=== PATIENT | male | born 1960 | race Two or more races ===

== ENCOUNTER 2024-08-19 10:41 | Outpatient (CLI) | payer MEDICAID ==
[2024-08-19 11:05] LABS: Urine Bacteria None Seen /hpf (None Seen)
[2024-08-19 11:15] LABS: Basophils # (auto) 0.1 10 ^3/uL (0-0.2); Eosinophils # (auto) 0.2 10 ^3/uL (0-0.8); Hematocrit 27.6 % (41.0-53.0); Hemoglobin 9.5 g/dL (13.5-17.5); Lymphocytes % (auto) 16.8 % (10.0-50.0); Mean Corpuscular Hemoglobin 32.8 pg (28.0-32.0); Mean Corpuscular Hgb Conc. 34.3 g/dL (32.0-36.0); Mean Corpuscular Volume 95.5 fL (80.0-100.0); Monocytes # (auto) 0.6 10 ^3/uL (0-1.3); Monocytes % (auto) 10.2 % (0.0-12.0); Platelet Count (auto) 330 10^3/uL (140-450); Red Blood Cells 2.89 10^6/uL (4.5-5.90); White Blood Cell 5.7 10^3/uL (4.4-10.8)
[2024-08-19 11:23] LABS: Urine Blood Negative /uL (Negative); Urine Clarity Clear (Clear); Urine Color Light-Yellow (Yellow); Urine Protein, UAD Negative (Negative); Urine Specific Gravity 1.009 (1.001-1.035); Urine Squamous Epithelial Cell FEW /hpf (<5); Urine Urobilinogen Normal (Negative); Urine WBC 2 /HPF (0-3); Urine pH 5.5 (5.0-9.0)
[2024-08-19 11:36] LABS: Alanine Aminotransferase 24 U/L (7-40); Albumin 4.6 g/dL (3.2-4.8); Alkaline Phosphatase 90 U/L (46-116); Anion Gap 12 (5-15); Aspartate Aminotransferase 13 U/L (13-40); BUN/Creatinine Ratio 8.8 (10.0-20.0); Calcium 9.5 mg/dL (8.7-10.4); Glucose 89 mg/dL (74-106); Magnesium 1.7 mg/dL (1.6-2.6); Potassium 4.8 mmol/L (3.5-5.1); Prostate Specific Antigen 15.66 ng/mL (0.0-4.0); Sodium 140 mmol/L (136-145); Total Protein 7.7 g/dL (5.7-8.2); Triglycerides 92 mg/dL (< 150)
[2024-08-19 11:41] LABS: Bilirubin, Total 0.2 mg/dL (0.2-1.0); Blood Urea Nitrogen 67 mg/dL (9-23); Carbon Dioxide 18 mmol/L (20-31); Chloride 110 mmol/L (98-107); Cholesterol 207 mg/dL (< 200); HDL Cholesterol 35 mg/dL (40-59); LDL Cholesterol 153 mg/dL (< 100)
== END 2024-08-19 17:00 | disposition home or self-care (01) ==
LOC: LAB 10:41
PROVIDERS: ATTEND Internal Medicine
DX: Z12.5 Encounter for screening for malignant neoplasm of prostate (principal); Z12.11 Encounter for screening for malignant neoplasm of colon; Z00.00 Encounter for general adult medical examination without abnormal findings
CPT/HCPCS: 36415; 80053; 80061; 81001; 82306; 82607; 83036; 83735; 84153; 84443; 85025

== ENCOUNTER 2024-08-26 13:45 | Inpatient (IN) | payer MEDICAID ==
[~2024-08-26] VITALS: Ht 180.3 cm; Wt 71.4 kg
[2024-08-26 14:22] VITALS: PULSE 67; RESP 18; O2SAT 100
--- NOTE | 2024-08-26 14:59 | ED.PDOC ---
General HPI Comments HPI: Poor Historian. 64-year-old male sent by his PCP's office for evaluation of recent diagnosis of acute renal failure and enlarged prostate. I discussed the case with the PCP on the phone. He said the patient had a CT scan approximately a week ago that shows hydronephrosis and hydroureter nephrosis bilaterally with an enlarged prostate likely causing bladder outlet obstruction. Patient denies any pain or symptoms. PCP recommends admitting the patient to the hospital for further evaluation and treatment Dr. Braun Past Medical History: Denies Past Surgical History: Denies REVIEW OF SYSTEMS: CONSTITUTIONAL: Denies acute: fever, diaphoresis, chills, generalized weakness. HEAD: Denies acute: headache, photophobia Eyes: Denies acute: Double vision, vision loss, eye pain, eye discharge. EARS: Denies acute: tinnitus, hearing loss, ear discharge, ear pain, THROAT: Denies acute: sore throat, swelling, difficulty swallowing , pain with swal lowing, change in voice. NECK: Denies acute: neck pain, neck swelling, stiff neck. HEART: Denies acute : chest pain, palpitations, LUNGS: Denies acute: SOB, wheezing, cough, hemoptysis ABDOMEN: Denies acute: abdominal pain, Nausea, Vomiting, diarrhea, melena , hematemesis, hematochezia SKIN: Denies acute: rash, redness, lesions, itchiness. EXTREMITIES: Denies acute: calf pain, numbness, tingling, weakness, denies pain in extremity. Denies acute: Low back pain. Neuro: Denies acute: focal neurological deficit, motor or sensory focal neurological deficit, tremors, seizure like activity, confusion, dizziness, change in mental status, loss of bowel or bladder function, cauda equina like symptoms. : Denies acute: dysuria, hematuria, flank pain, PSYCH: Denies acute: hallucination, suicidal ideation, homicidal ideation. PHYSICAL EXAM: General: ----no----acute distress, awake and alert. Head: normocephalic, atraumatic. Neck: supple, trachea is midline, no swelling. Throat: Normal phonation. Eyes:, no erythema, no purulent discharge, no proptosis, no icterus. Heart: regular rate, regular rhythm, no significant murmur appreciated. Lungs: no apparent respiratory distress, Able to speak in full sentences. No wheezing, no rhonchi, no crackles. No stridors Clear to auscultation bilaterally. Abdomen: non tender to palpation, non distended, soft, no guarding, no rebound, + bowel sounds. Neuro: Awake, Alert, oriented to name, self, situation, follows commands GCS=15. Speech is normal. Skin: no petechia, no purpura, no cyanosis, non-pale, not jaundice. Lower extremities: --no - Pitting edema no deformity, no focal swelling, no calf TTP. Makes eye contact. moves all four extremities. Face: no apparent facial droop. Ambulating in the ED independently. ED COURSE: Chief Complaint: Abnormal LAB's Time Seen by MD: 14:52 Primary Care Provider: TRACEE Reviewed notes: Medications, Allergies Allergies: Coded Allergies: Codeine (Verified Allergy, Unknown, 08/26/24) JUST DOESNT CARE FOR MEDICATION Home Meds Reported Medications Famotidine (Famotidine) 20 Mg Tab, 1 TAB PO BID 08/26/24 Information Source: Patient Mode of Arrival: Ambulatory Past Medical History PAST MEDICAL HISTORY: Denies Surgical History: Denies all surgeries Family History Family History: Reviewed,noncontributory to illness Social History Smoker: Non-Smoker Alcohol: Denies ETOH Use Drugs: Denies Drug Use Lives In: Home Was a procedure done? Was a procedure done?: No Differential Diagnosis Kidney stone (Female): N/A Urinary Problem (Male): Bladder Outlet, Bladder Obstruction, Epididymitis, Prostatitis, Plelonephritis, Post op Complications, Renal Failure, Urethritis, Urinary Retention, Urolithiasis, UTI X-Ray, Labs, Meds, VS Vital Signs Date Time Temp Pulse Resp B/P (MAP) Pulse Ox O2 Delivery O2 Flow Rate FiO2 08/26/24 19:23 65 12 115/79 (91) 99 08/26/24 19:20 62 10 99 Room Air* 0 21 08/26/24 16:43 97.5 59 16 125/92 (103) 99 97.5 08/26/24 16:43 59 16 97 Room Air 08/26/24 14:22 67 18 100 Room Air* 0 21 08/26/24 14:18 97.9 67 18 148/85 (106) 100 97.9 Lab Test 08/26/24 14:58 08/26/24 14:55 Range/Units White Blood Count 5.0 4.4-10.8 10^3/uL Red Blood Count 2.73 L 4.5-5.90 10^6/uL Hemoglobin 9.0 L 13.5-17.5 g/dL Hematocrit 25.7 L 41.0-53.0 % Mean Corpuscular Volume 94.3 80.0-100.0 fL Mean Corpuscular Hemoglobin 32.9 H 28.0-32.0 pg Mean Corpuscular Hemoglobin Concent 34.8 32.0-36.0 g/dL Red Cell Distribution Width 13.3 11.8-14.3 % Platelet Count 311 140-450 10^3/uL Mean Platelet Volume 7.6 6.9-10.8 fL Neutrophils (%) (Auto) 66.3 37.0-80.0 % Lymphocytes (%) (Auto) 20.0 10.0-50.0 % Monocytes (%) (Auto) 10.5 0.0-12.0 % Eosinophils (%) (Auto) 2.1 0.0-7.0 % Basophils (%) (Auto) 1.1 0.0-2.0 % Neutrophils # (Auto) 3.3 1.6-8.6 10 ^3/uL Lymphocytes # (Auto) 1.0 0.4-5.4 10 ^3/uL Monocytes # (Auto) 0.5 0-1.3 10 ^3/uL Eosinophils # (Auto) 0.1 0-0.8 10 ^3/uL Basophils # (Auto) 0.1 0-0.2 10 ^3/uL Nucleated Red Blood Cells 0.0 % Sodium Level 143 136-145 mmol/L Potassium Level 4.9 3.5-5.1 mmol/L Chloride Level 111 H 98-107 mmol/L Carbon Dioxide Level 19 L 20-31 mmol/L Anion Gap 13 5-15 Blood Urea Nitrogen 61 H 9-23 mg/dL Creatinine 7.95 H 0.700-1.30 mg/dL Glomerular Filtration Rate Calc 7 >90 mL/min BUN/Creatinine Ratio 7.7 L 10.0-20.0 Serum Glucose 90 74-106 mg/dL Lactic Acid Level 0.9 0.4-2.0 mmol/L Calcium Level 9.6 8.7-10.4 mg/dL Total Bilirubin 0.2 0.2-1.0 mg/dL Aspartate Amino Transferase (AST) 19 13-40 U/L Alanine Aminotransferase (ALT) 25 7-40 U/L Alkaline Phosphatase 90 46-116 U/L Total Protein 7.5 5.7-8.2 g/dL Albumin 4.7 3.2-4.8 g/dL Free Prostate Specific Antigen Pending Percent Free Prostate Specific Ag Pending Prostate Specific Antigen Total Pending Urine Color Light-yellow Yellow Urine Clarity Clear Clear Urine pH 5.5 5.0-9.0 Urine Specific [place] 1.009 1.001-1.035 Urine Protein Negative Negative Urine Ketones Negative Negative Urine Blood Negative Negative /uL Urine Nitrite Negative Negative Urine Bilirubin Negative Negative Urine Urobilinogen Normal Negative mg/dL Urine Leukocyte Esterase Negative Negative /uL Urine RBC None seen 0 - 3 /hpf Urine Microscopic WBC 2 0-3 /HPF Urine Squamous Epithelial Cells None seen <5 /hpf Urine Bacteria None seen None Seen /hpf Urine Glucose Normal Normal mg/dL Current Medications Medications (Trade) Dose Ordered Sig/Kandi Route Start Time Stop Time Status Last Admin Lidocaine HCl (Glydo) 11 ml ONCE ONCE UR 08/26/24 18:45 08/26/24 18:46 DC 08/26/24 18:51 PATIENT: KIT BARRAZACCT: [id number]: [id number] : 1960 LOC: ER ROOM / BED: / AGE / SEX: 64 / M ADM STATUS: REG ER SERVICE 1704 ORDERING PHYSICIAN: JACKELINE LOYOLA MD PROCEDURE(s): KIDUS - KIDNEY REASON: REGINALDO ORDER NUMBER(s): [id number], ACCESSION NUMBER(s): [id number] INDICATION: REGINALDO TECHNIQUE: Multiple real-time sonographic images of the kidneys and bladder were obtained. COMPARISON: None FINDINGS: The right kidney measures 8.83 cm in length, which is normal in size. Decreased cortical thickness There is increased echogenicity of the right kidney. Right-sided hydronephrosis The left kidney measures 1.11 cm in length, which is normal in size. Decreased cortical thickness. There is increased echogenicity of the left kidney. Left- sided hydronephrosis No large intraluminal masses are seen in the bladder. Prior to voiding the bladder volume measures volume 1907 mL. Following voiding, the bladder volume residual measures 1420 mL. IMPRESSION: 1. Right kidney measures 8.83 cm. Left kidney measures 11.11 cm. 2. Bilateral hydronephrosis 3. Decreased cortical thickness bilaterally and increased echogenicity suggesting chronic renal disease. 4. 1420 mL urinary residual in the bladder. Bladder wall measures 14.8 mm findings most likely represent chronic bladder outlet obstruction. ATED BY: JALIL LOPEZ Jr., DO DICTATED DATE/TIME: 08/26/241841 SIGNED BY: JALIL LOPEZ Jr., SIGNED DATE/TIME: 08/26/241841 Time of 1ST Reevaluation: 15:22 Reevaluation 1ST: Unchanged Patient Education/Counseling: Diagnosis, Treatment Family Education/Counseling: No Family Present Comments Patient presented with the above HPI.--history of acute renal failure----workup was initiated. patient was found with the above mentioned diagnosis. Case discussed with the patient's PCP who recommends admission to the hospital for further evaluation the following medications were ordered: please refer to order lists of meds and tests obtained by myself Dr. Garcia. Patient ED course and VS have been stabilized. Patient has been reassessed in the ED and remained in a stable condition. Pertinent incidental findings were discussed with the patient and/or family. Patient/family voices understanding and is agreeable with plan. Patient has been observed in the ED adequate length of time to insure improvement/stability. Escalation of care considered: Consideration of escalation to observation or admission Patient denies any symptoms. A consult for Nephrology was placed. Garcia catheter was ordered. Patient was ADMITTED to the medicine team for further evaluation and treatment of their presentation. All the reports of any imaging studies that were ordered by myself were reviewed by myself. Departure 1 Departure Time of Disposition: 15:06 Impression: Primary Impression: Acute renal failure Additional Impressions: Enlarged prostate Bladder outlet obstruction Hydroureteronephrosis Disposition: ADMITTED INPATIENT Admit to: Tele Condition: Guarded Discharged With: Self Critical Care Note Critical Care Time?: Yes (55 min-critical care time only) I personally scribed for FRANCISCO GARCIA DO ([email or web address]) on 08/26/24 at 14:59. Electronically submitted by Mik Fry ([email or web address]). I personally scribed for FRANCISCO GARCIA DO ([email or web address]) on 08/26/24 at 20:03. Electronically submitted by Mik Fry ([email or web address]). FRANCISCO GARCIA DO Aug 26, 2024 14:59
[2024-08-26 15:18] LABS: Basophils # (auto) 0.1 10 ^3/uL (0-0.2); Basophils % (auto) 1.1 % (0.0-2.0); Eosinophils # (auto) 0.1 10 ^3/uL (0-0.8); Eosinophils % (auto) 2.1 % (0.0-7.0); Hematocrit 25.7 % (41.0-53.0); Mean Corpuscular Hemoglobin 32.9 pg (28.0-32.0); Mean Corpuscular Hgb Conc. 34.8 g/dL (32.0-36.0); Mean Corpuscular Volume 94.3 fL (80.0-100.0); Monocytes # (auto) 0.5 10 ^3/uL (0-1.3); Monocytes % (auto) 10.5 % (0.0-12.0); Neutrophils # (auto) 3.3 10 ^3/uL (1.6-8.6); Neutrophils % (auto) 66.3 % (37.0-80.0); Platelet Count (auto) 311 10^3/uL (140-450); Red Blood Cells 2.73 10^6/uL (4.5-5.90); Red Cell Distribution Width 13.3 % (11.8-14.3)
[2024-08-26 15:29] LABS: Urine Bacteria None Seen /hpf (None Seen)
[2024-08-26 15:34] LABS: Alanine Aminotransferase 25 U/L (7-40); Albumin 4.7 g/dL (3.2-4.8); Alkaline Phosphatase 90 U/L (46-116); Anion Gap 13 (5-15); Aspartate Aminotransferase 19 U/L (13-40); BUN/Creatinine Ratio 7.7 (10.0-20.0); Calcium 9.6 mg/dL (8.7-10.4); Glucose 90 mg/dL (74-106); Potassium 4.9 mmol/L (3.5-5.1); Sodium 143 mmol/L (136-145); Total Protein 7.5 g/dL (5.7-8.2)
[2024-08-26 15:39] LABS: Urine Blood Negative /uL (Negative); Urine Clarity Clear (Clear); Urine Color Light-Yellow (Yellow); Urine Protein, UAD Negative (Negative); Urine Specific Gravity 1.009 (1.001-1.035); Urine Squamous Epithelial Cell None Seen /hpf (<5); Urine Urobilinogen Normal (Negative); Urine WBC 2 /HPF (0-3); Urine pH 5.5 (5.0-9.0)
[2024-08-26 15:39] LABS: Bilirubin, Total 0.2 mg/dL (0.2-1.0); Blood Urea Nitrogen 61 mg/dL (9-23); Carbon Dioxide 19 mmol/L (20-31); Chloride 111 mmol/L (98-107)
[2024-08-26] MEDS ORDERED: LIDOCAINE 2% TOPICAL JELLY 5 ML URJT TOP ONE (18:45)
--- NOTE | 2024-08-26 18:45 | DVH ---
INDICATION: REGINALDO TECHNIQUE: Multiple real-time sonographic images of the kidneys and bladder were obtained. COMPARISON: None FINDINGS: The right kidney measures 8.83 cm in length, which is normal in size. Decreased cortical th ickness There is increased echogenicity of the right kidney. Right-sided hydronephrosis The left kidney measures 1.11 cm in length, which is normal in size. Decreased cortical thickness. Th ere is increased echogenicity of the left kidney. Left-sided hydronephrosis No large intraluminal masses are seen in the bladder. Prior to voiding the bladder volume measures vo lume 1907 mL. Following voiding, the bladder volume residual measures 1420 mL. IMPRESSION: 1. Right kidney measures 8.83 cm. Left kidney measures 11.11 cm. 2. Bilateral hydronephrosis 3. Decreased cortical thickness bilaterally and increased echogenicity suggesting chronic renal dise ase. 4. 1420 mL urinary residual in the bladder. Bladder wall measures 14.8 mm findings most likely repre sent chronic bladder outlet obstruction.
[2024-08-26] MEDS: LIDOCAINE 2% JELLY 11ml (GLYDO) ONE (18:51)
[2024-08-26] MEDS: LIDOCAINE 2% JELLY 11ml (GLYDO) UR ONE (18:51)
[2024-08-26 19:20] VITALS: PULSE 62; RESP 10; O2SAT 99
[2024-08-26] MEDS ORDERED: ACETAMINOPHEN 325 MG TAB PO PRN (19:30)
[2024-08-26] MEDS: TAMSULOSIN HYDROCHLORIDE 0.4 MG CAP PO ONE (19:49)
[2024-08-26] MEDS: SOD CHL 0.45% 1,000 ML IV SCH (20:30)
--- NOTE | 2024-08-26 20:44 | DVHINCON2 ---
Date of service: Aug 26, [address] Vega Reason for Consultation REGINALDO History of Present Illness 64 year old male with no previous medical follow-up for several years presented to a primary medical doctor to establish care approximately one month ago. Routine comprehensive screening tests were done and patient was complaining of an abdominal hernia at the time. Upon follow-up from lab results patient was noted to have an abnormal creatinine level and therefore was sent to the hospital for evaluation. In the ER patient had a bladder scan which showed bilateral hydronephrosis with a residual bladder retention approximately 1.4 L. Garcia catheter was placed. Nephrology consulted for acute kidney injury. Past Medical History No previous medical history Allergies: Coded Allergies: Codeine (Verified Allergy, Unknown, 08/26/24) JUST DOESNT CARE FOR MEDICATION Home Meds Reported Medications Famotidine (Famotidine) 20 Mg Tab, 1 TAB PO BID 08/26/24 Current Medications Current Medications Medications (Trade) Dose Ordered Sig/Kandi Route PRN Reason Start Time Stop Time Status Last Admin Tamsulosin HCl (Flomax) 0.4 mg QPM PO 08/27/24 18:00 Acetaminophen/ Hydrocodone Bitart ([place] 5/325MG Tab) 1 tab Q4HP PRN PO MODERATE PAIN (4-6 PAIN SCALE) 08/26/24 19:30 Ondansetron HCl (Zofran) 4 mg Q4HP PRN IV NAUSEA / VOMITING 08/26/24 19:30 Acetaminophen (Tylenol Tablet) 650 mg Q6HP PRN PO PAIN SCALE 1-3 OR TEMP>100.4 08/26/24 19:30 Sodium Chloride 1,000 ml @ 100 mls/hr Q10H IV 08/26/24 20:30 08/27/24 07:19 DC Sodium Bicarbonate 75 ml/ Sodium Chloride 1,075 ml @ 100 mls/hr [id number] IV 08/27/24 07:30 H&P Exam Vital Signs/I&O Vital Sign Date Time Temp Pulse Resp B/P (MAP) Pulse Ox O2 Delivery O2 Flow Rate FiO2 08/27/24 13:00 98.0 66 17 107/62 (77) 99 98.0 08/26/24 23:17 Room Air* 0 21 Intake and Output 08/26/24 08/27/24 18:59 06:59 Intake Total 1600 ml Output Total 1850 ml Balance -250 ml Intake Oral 1600 ml Output Urine Total 1850 ml Physical Exam Elderly male Nonacute distress Alert and oriented Regular rate and rhythm Labs/Diagnostic Data Labs/Diagnostic Data Laboratory Tests Test 08/27/24 05:45 08/26/24 14:58 08/26/24 14:55 Range/Units White Blood Count 9.3 # 5.0 4.4-10.8 10^3/uL Red Blood Count 2.87 L 2.73 L 4.5-5.90 10^6/uL Hemoglobin 9.4 L 9.0 L 13.5-17.5 g/dL Hematocrit 27.1 L 25.7 L 41.0-53.0 % Mean Corpuscular Volume 94.3 94.3 80.0-100.0 fL Mean Corpuscular Hemoglobin 32.7 H 32.9 H 28.0-32.0 pg Mean Corpuscular Hemoglobin Concent 34.7 34.8 32.0-36.0 g/dL Red Cell Distribution Width 13.2 13.3 11.8-14.3 % Platelet Count 301 311 140-450 10^3/uL Mean Platelet Volume 7.6 7.6 6.9-10.8 fL Neutrophils (%) (Auto) 88.9 H 66.3 37.0-80.0 % Lymphocytes (%) (Auto) 5.6 L 20.0 10.0-50.0 % Monocytes (%) (Auto) 4.9 10.5 0.0-12.0 % Eosinophils (%) (Auto) 0.3 2.1 0.0-7.0 % Basophils (%) (Auto) 0.3 1.1 0.0-2.0 % Neutrophils # (Auto) 8.3 3.3 1.6-8.6 10 ^3/uL Lymphocytes # (Auto) 0.5 1.0 0.4-5.4 10 ^3/uL Monocytes # (Auto) 0.5 0.5 0-1.3 10 ^3/uL Eosinophils # (Auto) 0 0.1 0-0.8 10 ^3/uL Basophils # (Auto) 0 0.1 0-0.2 10 ^3/uL Nucleated Red Blood Cells 0.0 0.0 % Sodium Level 139 143 136-145 mmol/L Potassium Level 5.1 4.9 3.5-5.1 mmol/L Chloride Level 108 H 111 H 98-107 mmol/L Carbon Dioxide Level 19 L 19 L 20-31 mmol/L Anion Gap 12 13 5-15 Blood Urea Nitrogen 61 H 61 H 9-23 mg/dL Creatinine 7.80 H 7.95 H 0.700-1.30 mg/dL Glomerular Filtration Rate Calc 7 7 >90 mL/min BUN/Creatinine Ratio 7.8 L 7.7 L 10.0-20.0 Serum Glucose 123 H 90 74-106 mg/dL Calcium Level 9.0 9.6 8.7-10.4 mg/dL Phosphorus Level 4.8 2.4-5.1 mg/dL Iron Level 48 L 65-175 ug/dL Total Iron Binding Capacity 235 L 250-425 ug/dL Percent Iron Saturation 20.4 20-55 % Ferritin 383.9 H 22-322 ng/mL Vitamin D 25-Hydroxy 38.4 30.0-100 ng/mL Lactic Acid Level 0.9 0.4-2.0 mmol/L Total Bilirubin 0.2 0.2-1.0 mg/dL Aspartate Amino Transferase (AST) 19 13-40 U/L Alanine Aminotransferase (ALT) 25 7-40 U/L Alkaline Phosphatase 90 46-116 U/L Total Protein 7.5 5.7-8.2 g/dL Albumin 4.7 3.2-4.8 g/dL Urine Color Light-yellow Yellow Urine Clarity Clear Clear Urine pH 5.5 5.0-9.0 Urine Specific [place] 1.009 1.001-1.035 Urine Protein Negative Negative Urine Ketones Negative Negative Urine Blood Negative Negative /uL Urine Nitrite Negative Negative Urine Bilirubin Negative Negative Urine Urobilinogen Normal Negative mg/dL Urine Leukocyte Esterase Negative Negative /uL Urine RBC None seen 0 - 3 /hpf Urine Microscopic WBC 2 0-3 /HPF Urine Squamous Epithelial Cells None seen <5 /hpf Urine Bacteria None seen None Seen /hpf Urine Glucose Normal Normal mg/dL Assessment 64-year-old male presented to the hospital at the request of primary medical physician due to probable urinary retention. Patient is found to have bilateral hydronephrosis in the setting of obstructive uropathy. Acute kidney injury secondary to bladder outlet obstruction due to enlarged prostate. Chronic kidney disease unspecified baseline unknown Anemia unspecified Metabolic acidosis Agree with Garcia catheter placement Strict Is&Os Urology Avoid hypotension IV fluid hydration Obtain medication was reconciliation and collateral information from primary medical team. No emergent indication for hemodialysis at this time if patient continues to have adequate urinary output Obtain anemia panel Plan discussed with: Patient JACKELINE LOYOLA MD Aug 26, 2024 20:44
--- NOTE | 2024-08-26 21:14 | DVHHP2 ---
History of Present Illness Reason for Visit: Abnormal labs History of Present Illness 64-year-old male presents for evaluation of abnormal blood work. Patient was seen by his primary care provider and was advised to present to the emergency department due to acute renal failure noted from previous blood work. Patient reports urinary frequency and difficulty urinating. Denies any medical problems. Past Medical History Denies Past Surgical History Denies Family History Noncontributory Smoke: No ALCOHOL: none Drugs: None Lives: with Family Review of Systems Review of Systems Review of systems are currently negative otherwise addressed in HPI. Allergies: Coded Allergies: Codeine (Verified Allergy, Unknown, 08/26/24) JUST DOESNT CARE FOR MEDICATION Medications Current Medications Medications Dose Ordered Sig/Kandi Route Start Time Stop Time Status Last Admin Dose Admin Tamsulosin HCl 0.4 mg QPM PO 08/27/24 18:00 Acetaminophen/ Hydrocodone Bitart 1 tab Q4HP PRN PO 08/26/24 19:30 Ondansetron HCl 4 mg Q4HP PRN IV 08/26/24 19:30 Acetaminophen 650 mg Q6HP PRN PO 08/26/24 19:30 Sodium Chloride 1,000 ml @ 100 mls/hr Q10H IV 08/26/24 20:30 Exam Vital Signs Vital Signs Date Time Temp Pulse Resp B/P (MAP) Pulse Ox O2 Delivery O2 Flow Rate FiO2 08/26/24 19:23 65 12 115/79 (91) 99 08/26/24 19:20 Room Air* 0 21 08/26/24 16:43 97.5 97.5 Exam Gen: 64-year-old male in mild distress Skin: Warm, dry, normal color and texture, no rash. HEENT: Normocephalic atraumatic, mucous membranes moist and pink. Neck: Cervical and supraclavicular nodes normal without enlargement, trachea is midline, thyroid gland is normal without masses. Pulmonary: Clear to auscultation and percussion bilaterally. Cardiac: Regular rate and rhythm. No murmur Abdomen: Soft, nontender, nondistended, bowel sounds present all 4 quadrants, no guarding, no rigidity, no organomegaly. Extremities: No cyanosis, clubbing, no edema Neuro: Cranial nerves II through XII grossly intact, normal affect and speech, no focal motor deficits. Labs/Xrays ORDERING PHYSICIAN: JACKELINE LOYOLA MD PROCEDURE(s): KIDUS - KIDNEY REASON: REGINALDO ORDER NUMBER(s): [id number], ACCESSION NUMBER(s): [id number] INDICATION: REGINALDO TECHNIQUE: Multiple real-time sonographic images of the kidneys and bladder were obtained. COMPARISON: None FINDINGS: The right kidney measures 8.83 cm in length, which is normal in size. Decreased cortical thickness There is increased echogenicity of the right kidney. Right-sided hydronephrosis The left kidney measures 1.11 cm in length, which is normal in size. Decreased cortical thickness. There is increased echogenicity of the left kidney. Left- sided hydronephrosis No large intraluminal masses are seen in the bladder. Prior to voiding the bladder volume measures volume 1907 mL. Following voiding, the bladder volume residual measures 1420 mL. IMPRESSION: 1. Right kidney measures 8.83 cm. Left kidney measures 11.11 cm. 2. Bilateral hydronephrosis 3. Decreased cortical thickness bilaterally and increased echogenicity suggesting chronic renal disease. 4. 1420 mL urinary residual in the bladder. Bladder wall measures 14.8 mm findings most likely represent chronic bladder outlet obstruction. 18 Labs Test 08/26/24 14:58 08/26/24 14:55 Range/Units White Blood Count 5.0 4.4-10.8 10^3/uL Red Blood Count 2.73 L 4.5-5.90 10^6/uL Hemoglobin 9.0 L 13.5-17.5 g/dL Hematocrit 25.7 L 41.0-53.0 % Mean Corpuscular Volume 94.3 80.0-100.0 fL Mean Corpuscular Hemoglobin 32.9 H 28.0-32.0 pg Mean Corpuscular Hemoglobin Concent 34.8 32.0-36.0 g/dL Red Cell Distribution Width 13.3 11.8-14.3 % Platelet Count 311 140-450 10^3/uL Mean Platelet Volume 7.6 6.9-10.8 fL Neutrophils (%) (Auto) 66.3 37.0-80.0 % Lymphocytes (%) (Auto) 20.0 10.0-50.0 % Monocytes (%) (Auto) 10.5 0.0-12.0 % Eosinophils (%) (Auto) 2.1 0.0-7.0 % Basophils (%) (Auto) 1.1 0.0-2.0 % Neutrophils # (Auto) 3.3 1.6-8.6 10 ^3/uL Lymphocytes # (Auto) 1.0 0.4-5.4 10 ^3/uL Monocytes # (Auto) 0.5 0-1.3 10 ^3/uL Eosinophils # (Auto) 0.1 0-0.8 10 ^3/uL Basophils # (Auto) 0.1 0-0.2 10 ^3/uL Nucleated Red Blood Cells 0.0 % Sodium Level 143 136-145 mmol/L Potassium Level 4.9 3.5-5.1 mmol/L Chloride Level 111 H 98-107 mmol/L Carbon Dioxide Level 19 L 20-31 mmol/L Anion Gap 13 5-15 Blood Urea Nitrogen 61 H 9-23 mg/dL Creatinine 7.95 H 0.700-1.30 mg/dL Glomerular Filtration Rate Calc 7 >90 mL/min BUN/Creatinine Ratio 7.7 L 10.0-20.0 Serum Glucose 90 74-106 mg/dL Lactic Acid Level 0.9 0.4-2.0 mmol/L Calcium Level 9.6 8.7-10.4 mg/dL Total Bilirubin 0.2 0.2-1.0 mg/dL Aspartate Amino Transferase (AST) 19 13-40 U/L Alanine Aminotransferase (ALT) 25 7-40 U/L Alkaline Phosphatase 90 46-116 U/L Total Protein 7.5 5.7-8.2 g/dL Albumin 4.7 3.2-4.8 g/dL Urine Color Light-yellow Yellow Urine Clarity Clear Clear Urine pH 5.5 5.0-9.0 Urine Specific [employer] 1.009 1.001-1.035 Urine Protein Negative Negative Urine Ketones Negative Negative Urine Blood Negative Negative /uL Urine Nitrite Negative Negative Urine Bilirubin Negative Negative Urine Urobilinogen Normal Negative mg/dL Urine Leukocyte Esterase Negative Negative /uL Urine RBC None seen 0 - 3 /hpf Urine Microscopic WBC 2 0-3 /HPF Urine Squamous Epithelial Cells None seen <5 /hpf Urine Bacteria None seen None Seen /hpf Urine Glucose Normal Normal mg/dL Assessment/Plan Assessment/Plan Assessment Acute renal failure Enlarged prostate Bladder outlet obstruction, secondary to the above Hydroureter nephrosis Acute urinary retention Plan Admit the patient to [facility] to the hospitalist Urology consultation Nephrology consult Garcia catheter Continue treatment per orders. Plan discussed with: Patient My Orders Orders - MICK CHAPPELL Procedure Category Date Status Time Tamsulosin PHA 08/27/24 In Process Hydrochloride (Flomax) 18:00 * Urology Consult CONS 08/26/24 Transmitted 19:27 Basic Metabolic Panel LAB 08/27/24 Verified 04:00 Psa Total+% Free LAB 08/26/24 In Process 19:27 Admit ADMIT 08/26/24 Transmitted 19:27 Renal DIET 08/27/24 Transmitted Standard(2gna,3gk,Lopho) Breakfast Hydrocodone-Acet PHA 08/26/24 In Process 5/325mg Tab ([place] 19:30 Ondansetron Hcl PHA 08/26/24 In Process (Zofran) 19:30 Complete Blood Count LAB 08/27/24 Verified 04:00 Condition: Stable SEMAJ 08/26/24 In Process 19:27 Acetaminophen Tablet PHA 08/26/24 In Process (Tylenol Tablet) 19:30 Bedrest With Bathroom SEMAJ 08/26/24 In Process Privileg 19:27 Date of Service: Aug 26, 2024 Billing Provider: MICK CHAPPELL Common Visit Codes: [id number] INP/OBS CARE (HIGH) MICK CHAPPELL Aug 26, 2024 21:14
[2024-08-26 22:36] VITALS: BP 136/73; PULSE 72; RESP 19; TEMP 97.9; O2SAT 99
[2024-08-26 23:17] VITALS: PULSE 79; RESP 18; O2SAT 99
[2024-08-26] MEDS ORDERED: FAMO-12 PO ×2 (23:50)
[2024-08-27] VITALS (8 sets, daily range): BP systolic 101–135; BP diastolic 61–73; PULSE 57–80; RESP 17–19; TEMP 97.6–98; O2SAT 97–100
[2024-08-27 06:14] LABS: Basophils # (auto) 0 10 ^3/uL (0-0.2); Basophils % (auto) 0.3 % (0.0-2.0); Eosinophils # (auto) 0 10 ^3/uL (0-0.8); Eosinophils % (auto) 0.3 % (0.0-7.0); Hematocrit 27.1 % (41.0-53.0); Hemoglobin 9.4 g/dL (13.5-17.5); Lymphocytes # (auto) 0.5 10 ^3/uL (0.4-5.4); Lymphocytes % (auto) 5.6 % (10.0-50.0); Mean Corpuscular Hemoglobin 32.7 pg (28.0-32.0); Mean Corpuscular Hgb Conc. 34.7 g/dL (32.0-36.0); Mean Corpuscular Volume 94.3 fL (80.0-100.0); Monocytes # (auto) 0.5 10 ^3/uL (0-1.3); Monocytes % (auto) 4.9 % (0.0-12.0); Neutrophils # (auto) 8.3 10 ^3/uL (1.6-8.6); Neutrophils % (auto) 88.9 % (37.0-80.0); Platelet Count (auto) 301 10^3/uL (140-450); Red Blood Cells 2.87 10^6/uL (4.5-5.90); Red Cell Distribution Width 13.2 % (11.8-14.3); White Blood Cell 9.3 10^3/uL (4.4-10.8)
[2024-08-27 06:24] LABS: Sodium 139 mmol/L (136-145)
[2024-08-27 06:25] LABS: Anion Gap 12 (5-15)
[2024-08-27 06:28] LABS: Carbon Dioxide 19 mmol/L (20-31); Chloride 108 mmol/L (98-107); Potassium 5.1 mmol/L (3.5-5.1)
[2024-08-27 06:30] LABS: BUN/Creatinine Ratio 7.8 (10.0-20.0)
[2024-08-27 06:31] LABS: Blood Urea Nitrogen 61 mg/dL (9-23); Glucose 123 mg/dL (74-106)
[2024-08-27 06:32] LABS: % Iron Saturation 20.4 % (20-55); Phosphorus 4.8 mg/dL (2.4-5.1)
[2024-08-27] MEDS: SODIUM BICARB 50mEq/50ml Vial 75 ML in SOD CHL 0.45% 1,000 ML IV SCH (07:30)
--- NOTE | 2024-08-27 13:23 | DVHPN2 ---
Subjective Patient denies any symptoms Reviewed: Care Plan, H&P, Labs, Medications Changes from previous H/P or p: No Changes General: Per HPI Objective Vitals Vital Signs Date Time Temp Pulse Resp B/P (MAP) Pulse Ox O2 Delivery O2 Flow Rate FiO2 08/27/24 09:00 97.7 72 17 101/61 (74) 100 97.7 08/26/24 23:17 Room Air* 0 21 Intake/Output Intake and Output 08/27/24 07:00 Intake Total 1600 ml Output Total 1850 ml Balance -250 ml Intake Oral 1600 ml Output Urine Total 1850 ml General Appearance: Alert, Oriented X3, Cooperative HEENT: Atraumatic, PERRLA Lungs: Clear to auscultation, Normal air movement Cardiovascular: Normal S1, Normal S2 Genitourinary: No Apparent Abnormalities (Garcia catheter), Hematuria Musculoskeletal: Normal sensory function, Normal motor function Skin: Dry, Intact Psych/Mental Status: Mental status NL, Mood NL Medications Current Medications Medications Dose Ordered Sig/Kandi Route Start Time Stop Time Status Last Admin Dose Admin Tamsulosin HCl 0.4 mg QPM PO 08/27/24 18:00 Acetaminophen/ Hydrocodone Bitart 1 tab Q4HP PRN PO 08/26/24 19:30 Ondansetron HCl 4 mg Q4HP PRN IV 08/26/24 19:30 Acetaminophen 650 mg Q6HP PRN PO 08/26/24 19:30 Sodium Bicarbonate 75 ml/ Sodium Chloride 1,075 ml @ 100 mls/hr [id number] IV 08/27/24 07:30 Laboratory Results Laboratory Tests 08/27/24 05:45 Chemistry Test 08/26/24 14:58 08/27/24 05:45 Albumin 4.7 g/dL (3.2-4.8) Calcium Level 9.6 mg/dL (8.7-10.4) 9.0 mg/dL (8.7-10.4) Total Protein 7.5 g/dL (5.7-8.2) Phosphorus Level 4.8 mg/dL (2.4-5.1) LFT Test 08/26/24 14:58 Alanine Aminotransferase (ALT) 25 U/L (7-40) Alkaline Phosphatase 90 U/L (46-116) Aspartate Amino Transferase (AST) 19 U/L (13-40) Total Bilirubin 0.2 mg/dL (0.2-1.0) Urinalysis Test 08/26/24 14:55 Urine Color Light-yellow (Yellow) Urine Clarity Clear (Clear) Urine pH 5.5 (5.0-9.0) Urine Specific [place] 1.009 (1.001-1.035) Urine Protein Negative (Negative) Urine Ketones Negative (Negative) Urine Blood Negative /uL (Negative) Urine Nitrite Negative (Negative) Urine Bilirubin Negative (Negative) Urine Urobilinogen Normal mg/dL (Negative) Urine Leukocyte Esterase Negative /uL (Negative) Urine RBC None seen /hpf (0 - 3) Urine Microscopic WBC 2 /HPF (0-3) Urine Squamous Epithelial Cells None seen /hpf (<5) Urine Bacteria None seen /hpf (None Seen) Urine Glucose Normal mg/dL (Normal) Labs and/or images reviewed: Labs reviewed by me, Image(s) reviewed by me Assessment/Plan Assessment/Plan Impression: -acute kidney injury secondary to obstructive uropathy -obstructive uropathy secondary to prostatomegaly -elevated PSA, rule out prostate CA -normocytic anemia Plan: -urology consultation pending -nephrology consultation: Recommendations reviewed. Continue sodium bicarbonate infusion. -patient with adequate urine output status post Garcia catheter. Continue to monitor hematuria -repeat PSA pending -repeat BMP in a.m. Total time spent with patient discussing and formulating plan of care: 35 minutes. This medical document was created using an electronic medical record system with [employer] dictation system. Although this document has been carefully reviewed, there may still be some phonetic and typographical errors. These areas are purely typographical due to imperfections of the software programs, and do not reflect any compromise in the patient's medical care. Plan discussed with: Patient, Other (RN) My Orders Orders - CHRISTY BEAVER NP Procedure Category Date Status Time * Urology Consult CONS 08/27/24 Transmitted 11:37 Date of Service: Aug 27, 2024 Billing Provider: CHRISTY BEAVER NP Common Visit Codes: [id number] INP/OBS CARE(HIGH) CHRISTY BEAVER NP Aug 27, 2024 13:23
[2024-08-27] MEDS: LIDOCAINE 2% JELLY 11ml (GLYDO) UR ONE (15:00)
--- NOTE | 2024-08-27 16:23 | DVHPN2 ---
Progress Note Date Seen: Aug 27, 2024 Medical Necessity Reason Pt with a Central, PICC or Fol: Yes The following are medically ne: Dixon Catheter Reason for dixon catheter: Bladder Retention/Obstruc Subjective Patient reports: Feels better Objective vital signs Vital Sign Date Time Temp Pulse Resp B/P (MAP) Pulse Ox O2 Delivery O2 Flow Rate FiO2 08/27/24 13:00 98.0 66 17 107/62 (77) 99 98.0 08/26/24 23:17 Room Air* 0 21 Total Intake and Output 08/26/24 08/26/24 08/27/24 15:00 23:00 07:00 Intake Total 1600 ml Output Total 1850 ml Balance -250 ml medications Current Medications Medications Dose Ordered Sig/Kandi Route Start Time Stop Time Status Last Admin Dose Admin Tamsulosin HCl 0.4 mg QPM PO 08/27/24 18:00 Acetaminophen/ Hydrocodone Bitart 1 tab Q4HP PRN PO 08/26/24 19:30 Ondansetron HCl 4 mg Q4HP PRN IV 08/26/24 19:30 Acetaminophen 650 mg Q6HP PRN PO 08/26/24 19:30 Sodium Bicarbonate 75 ml/ Sodium Chloride 1,075 ml @ 100 mls/hr [id number] IV 08/27/24 07:30 Examination: GENERAL:Normal, CVS:Normal, ABDOMEN:Normal, :Abnormal laboratory and microbiology Laboratory Tests 08/27/24 05:45 Test 08/27/24 05:45 Range/Units Serum Glucose 123 H 74-106 mg/dL Problem List/Assessment/Plan Problem List/Assessment/Plan 64-year-old male presented to the hospital at the request of primary medical physician due to probable urinary retention. Patient is found to have bilateral hydronephrosis in the setting of obstructive uropathy. Acute kidney injury secondary to bladder outlet obstruction due to enlarged prostate. Chronic kidney disease unspecified baseline unknown Anemia unspecified Metabolic acidosis continue dixon catheter, flush regularly given hematuria Strict Is&Os Urology Avoid hypotension IV fluid hydration oral iron No emergent indication for hemodialysis at this time however patient's baseline renal function is unknown to me given no previous established medical care we will monitor for renal response Plan discussed with: Patient My Orders My Orders Orders - JACKELINE LOYOLA MD Procedure Category Date Status Time Kidney US 08/26/24 Resulted 17:04 Document Fluid Input SEMAJ 08/26/24 In Process And Outpu 20:30 Sod Chl 0.45% PHA 08/27/24 In Process (Sodi... W/Sodium 07:30 Basic Metabolic Panel LAB 08/28/24 Verified 04:00 JACKELINE LOYOLA MD Aug 27, 2024 16:23
--- NOTE | 2024-08-27 16:35 | DVHINCON2 ---
Date of service: Aug 27, 2024 Referring Physician Hospitalist Reason for Consultation Hydronephrosis. Obstructive uropathy. History of Present Illness History Source: Patient HPI 64 y.o. male here for hydronephrosis and acute kidney failure. US showed bilateral hydronephrosis. Home Meds Reported Medications Famotidine (Famotidine) 20 Mg Tab, 1 TAB PO BID 08/26/24 Past Medical History Patient Family History: Alcoholism G8 FATHER Cardiovascular disease G8 MOTHER H&P Exam Vital Signs Vital Signs Date Time Temp Pulse Resp B/P (MAP) Pulse Ox O2 Delivery O2 Flow Rate FiO2 08/27/24 13:00 98.0 66 17 107/62 (77) 99 98.0 08/26/24 23:17 Room Air* 0 21 General Appeara: Well developed, Well nourished, Normal Appearance Skin Exam: Normal inspection Labs/Xrays [place] [address] Ph: [phone] DIAGNOSTIC IMAGING Diagnostic Imaging Report : [id number] Signed PATIENT: MAHESH BARRAZA ACCT: [id number] UNIT: [id number] : 1960 LOC: ER ROOM / BED: / AGE / SEX: 64 / M ADM STATUS: REG ER SERVICE 170 ORDERING PHYSICIAN: JACKELINE LOYOLA MD PROCEDURE(s): KIDUS - KIDNEY REASON: REGINALDO ORDER NUMBER(s): [id number], ACCESSION NUMBER(s): [id number] INDICATION: REGINALDO TECHNIQUE: Multiple real-time sonographic images of the kidneys and bladder were obtained. COMPARISON: None FINDINGS: The right kidney measures 8.83 cm in length, which is normal in size. Decreased cortical thickness There is increased echogenicity of the right kidney. Right-sided hydronephrosis The left kidney measures 1.11 cm in length, which is normal in size. Decreased cortical thickness. There is increased echogenicity of the left kidney. Left- sided hydronephrosis No large intraluminal masses are seen in the bladder. Prior to voiding the bladder volume measures volume 1907 mL. Following voiding, the bladder volume residual measures 1420 mL. IMPRESSION: 1. Right kidney measures 8.83 cm. Left kidney measures 11.11 cm. 2. Bilateral hydronephrosis 3. Decreased cortical thickness bilaterally and increased echogenicity suggesting chronic renal disease. 4. 1420 mL urinary residual in the bladder. Bladder wall measures 14.8 mm findings most likely represent chronic bladder outlet obstruction. ATED BY: JALIL LOPEZ Jr., DO DICTATED DATE/TIME: 08/26/241841 SIGNED BY: JALIL LOPEZ Jr., SIGNED DATE/TIME: 08/26/241841 CC: Labs Test 08/27/24 05:45 08/26/24 14:58 08/26/24 14:55 Range/Units White Blood Count 9.3 # 4.4-10.8 10^3/uL Red Blood Count 2.87 L 4.5-5.90 10^6/uL Hemoglobin 9.4 L 13.5-17.5 g/dL Hematocrit 27.1 L 41.0-53.0 % Mean Corpuscular Volume 94.3 80.0-100.0 fL Mean Corpuscular Hemoglobin 32.7 H 28.0-32.0 pg Mean Corpuscular Hemoglobin Concent 34.7 32.0-36.0 g/dL Red Cell Distribution Width 13.2 11.8-14.3 % Platelet Count 301 140-450 10^3/uL Mean Platelet Volume 7.6 6.9-10.8 fL Neutrophils (%) (Auto) 88.9 H 37.0-80.0 % Lymphocytes (%) (Auto) 5.6 L 10.0-50.0 % Monocytes (%) (Auto) 4.9 0.0-12.0 % Eosinophils (%) (Auto) 0.3 0.0-7.0 % Basophils (%) (Auto) 0.3 0.0-2.0 % Neutrophils # (Auto) 8.3 1.6-8.6 10 ^3/uL Lymphocytes # (Auto) 0.5 0.4-5.4 10 ^3/uL Monocytes # (Auto) 0.5 0-1.3 10 ^3/uL Eosinophils # (Auto) 0 0-0.8 10 ^3/uL Basophils # (Auto) 0 0-0.2 10 ^3/uL Nucleated Red Blood Cells 0.0 % Sodium Level 139 136-145 mmol/L Potassium Level 5.1 3.5-5.1 mmol/L Chloride Level 108 H 98-107 mmol/L Carbon Dioxide Level 19 L 20-31 mmol/L Anion Gap 12 5-15 Blood Urea Nitrogen 61 H 9-23 mg/dL Creatinine 7.80 H 0.700-1.30 mg/dL Glomerular Filtration Rate Calc 7 >90 mL/min BUN/Creatinine Ratio 7.8 L 10.0-20.0 Serum Glucose 123 H 74-106 mg/dL Calcium Level 9.0 8.7-10.4 mg/dL Phosphorus Level 4.8 2.4-5.1 mg/dL Iron Level 48 L 65-175 ug/dL Total Iron Binding Capacity 235 L 250-425 ug/dL Percent Iron Saturation 20.4 20-55 % Ferritin 383.9 H 22-322 ng/mL Vitamin D 25-Hydroxy 38.4 30.0-100 ng/mL Lactic Acid Level 0.9 0.4-2.0 mmol/L Total Bilirubin 0.2 0.2-1.0 mg/dL Aspartate Amino Transferase (AST) 19 13-40 U/L Alanine Aminotransferase (ALT) 25 7-40 U/L Alkaline Phosphatase 90 46-116 U/L Total Protein 7.5 5.7-8.2 g/dL Albumin 4.7 3.2-4.8 g/dL Urine Color Light-yellow Yellow Urine Clarity Clear Clear Urine pH 5.5 5.0-9.0 Urine Specific [place] 1.009 1.001-1.035 Urine Protein Negative Negative Urine Ketones Negative Negative Urine Blood Negative Negative /uL Urine Nitrite Negative Negative Urine Bilirubin Negative Negative Urine Urobilinogen Normal Negative mg/dL Urine Leukocyte Esterase Negative Negative /uL Urine RBC None seen 0 - 3 /hpf Urine Microscopic WBC 2 0-3 /HPF Urine Squamous Epithelial Cells None seen <5 /hpf Urine Bacteria None seen None Seen /hpf Urine Glucose Normal Normal mg/dL Assessment/Plan Problem List: (1) Hydroureteronephrosis (2) Acute renal failure (3) Bladder outlet obstruction (4) Benign prostatic hyperplasia with lower urinary tract symptoms Plan keep dixon to gravity. Check PSA. TURP or similar TBA inpatient vs outpatient. Depending on clinical course. Monitor renal function.. Plan discussed with: Patient, Spouse MATTHEW GOMEZ NP Aug 27, 2024 16:35
[2024-08-27] MEDS: FERROUS SULFATE 325mg EC TAB PO SCH (17:35)
[2024-08-27] MEDS: TAMSULOSIN HYDROCHLORIDE 0.4 MG CAP PO SCH (17:35)
[2024-08-27] MEDS: FUROSEMIDE 100 MG/10ML VIAL IV ONE (17:37)
[2024-08-27] MEDS: ONDANSETRON HCL 4 MG/2 ML VIAL IV PRN (20:12)
[2024-08-28] VITALS (8 sets, daily range): BP systolic 86–103; BP diastolic 51–80; PULSE 71–88; RESP 17–18; TEMP 97.2–98.7; O2SAT 96–99
[2024-08-28] MEDS: HYDROcodone-ACET 5/325MG TAB PO PRN (00:14)
[2024-08-28 07:18] LABS: Anion Gap 14 (5-15); Carbon Dioxide 22 mmol/L (20-31); Chloride 101 mmol/L (98-107); Potassium 4.9 mmol/L (3.5-5.1); Sodium 137 mmol/L (136-145)
[2024-08-28 07:24] LABS: BUN/Creatinine Ratio 8.1 (10.0-20.0); Glucose 104 mg/dL (74-106)
[2024-08-28 07:28] LABS: Blood Urea Nitrogen 60 mg/dL (9-23); Calcium 8.7 mg/dL (8.7-10.4)
[2024-08-28 08:07] LABS: PSA Free 4.52 ng/mL; Prostate Specific Antigen 17.5 ng/mL (0.0-4.0)
--- NOTE | 2024-08-28 09:17 | DVHPN2 ---
Progress Note Date Seen: Aug 28, 2024 Medical Necessity Reason Pt with a Central, PICC or Fol: Yes The following are medically ne: Dixon Catheter Reason for dixon catheter: Bladder Retention/Obstruc Subjective Review of Systems: Deferred Objective vital signs Vital Sign Date Time Temp Pulse Resp B/P (MAP) Pulse Ox O2 Delivery O2 Flow Rate FiO2 08/28/24 08:00 71 17 99 Room Air* 0 21 08/28/24 05:00 97.6 96/57 (70) 97.6 Total Intake and Output 08/27/24 08/27/24 08/28/24 15:00 23:00 07:00 Intake Total 600 ml 350 ml 800 ml Output Total 2000 ml 250 ml 2125 ml Balance -1400 ml 100 ml -1325 ml medications Current Medications Medications Dose Ordered Sig/Kandi Route Start Time Stop Time Status Last Admin Dose Admin Tamsulosin HCl 0.4 mg QPM PO 08/27/24 18:00 08/27/24 17:35 0.4 MG Acetaminophen/ Hydrocodone Bitart 1 tab Q4HP PRN PO 08/26/24 19:30 08/28/24 00:14 1 TAB Ondansetron HCl 4 mg Q4HP PRN IV 08/26/24 19:30 08/27/24 20:12 4 MG Acetaminophen 650 mg Q6HP PRN PO 08/26/24 19:30 Sodium Bicarbonate 75 ml/ Sodium Chloride 1,075 ml @ 100 mls/hr [id number] IV 08/27/24 07:30 08/28/24 03:00 100 MLS/HR Ferrous Sulfate 325 mg BIDWM PO 08/27/24 18:00 08/28/24 08:27 325 MG Examination: GENERAL:Normal, CVS:Normal, :Abnormal laboratory and microbiology Laboratory Tests 08/28/24 06:17 08/27/24 05:45 Test 08/28/24 06:17 Range/Units Serum Glucose 104 74-106 mg/dL Problem List/Assessment/Plan Problem List/Assessment/Plan 64-year-old male presented to the hospital at the request of primary medical physician due to probable urinary retention. Patient is found to have bilateral hydronephrosis in the setting of obstructive uropathy. Acute kidney injury secondary to bladder outlet obstruction due to enlarged prostate. Chronic kidney disease unspecified baseline unknown Anemia unspecified Metabolic acidosis continue dixon catheter, flush regularly Strict Is&Os Urology Avoid hypotension IV fluid hydration _> change to LR from bicarb drip now that acidosis resolved oral iron, Epogen Sub Q today No emergent indication for hemodialysis at this time however patient's baseline renal function is unknown to me given no previous established medical care we will monitor for renal response. Cr currently remains high Plan discussed with: Patient My Orders My Orders Orders - JACKELINE LOYOLA MD Procedure Category Date Status Time Ferrous Sulfate Tablet PHA 08/27/24 In Process 18:00 Basic Metabolic Panel LAB 08/29/24 Verified 04:00 JACKELINE LOYOLA MD Aug 28, 2024 09:17
[2024-08-28] MEDS: FUROSEMIDE 40 MG/4 ML VIAL IV ONE (11:22)
[2024-08-28] MEDS: LACTATED RINGER'S 1,000 ML IV SCH (11:22)
[2024-08-28] MEDS ORDERED: MORPHINE SULFATE INJ 2 MG/ml SYRG IV PRN (14:15)
--- NOTE | 2024-08-28 14:36 | DVHPN2 ---
Subjective Patient now reporting cramping to his lower extremities, cramping in his lower back. Reviewed: Care Plan, H&P, Labs, Medications Changes from previous H/P or p: Changes General: Per HPI Objective Vitals Vital Signs Date Time Temp Pulse Resp B/P (MAP) Pulse Ox O2 Delivery O2 Flow Rate FiO2 08/28/24 12:38 97.7 76 17 92/58 (69) 99 97.7 08/28/24 08:00 Room Air* 0 21 Intake/Output Intake and Output 08/28/24 07:00 Intake Total 1750 ml Output Total 4375 ml Balance -2625 ml Intake Oral 1750 ml Output Urine Total 4375 ml General Appearance: Alert, Oriented X3, Cooperative HEENT: Atraumatic, PERRLA Lungs: Clear to auscultation, Normal air movement Cardiovascular: Normal S1, Normal S2 Genitourinary: No Apparent Abnormalities (Garcia catheter), Hematuria Musculoskeletal: Normal sensory function, Normal motor function Skin: Dry, Intact Psych/Mental Status: Mental status NL, Mood NL Medications Current Medications Medications Dose Ordered Sig/Kandi Route Start Time Stop Time Status Last Admin Dose Admin Tamsulosin HCl 0.4 mg QPM PO 08/27/24 18:00 08/27/24 17:35 0.4 MG Acetaminophen/ Hydrocodone Bitart 1 tab Q4HP PRN PO 08/26/24 19:30 08/28/24 13:54 1 TAB Ondansetron HCl 4 mg Q4HP PRN IV 08/26/24 19:30 08/27/24 20:12 4 MG Acetaminophen 650 mg Q6HP PRN PO 08/26/24 19:30 Ferrous Sulfate 325 mg BIDWM PO 08/27/24 18:00 08/28/24 08:27 325 MG Lactated Ringer's 1,000 ml @ 100 mls/hr Q10H IV 08/28/24 09:15 08/28/24 11:22 100 MLS/HR Baclofen 5 mg Q12HP PRN PO 08/28/24 14:15 Morphine Sulfate 1 mg Q3HP PRN IV 08/28/24 14:15 Laboratory Results Laboratory Tests 08/27/24 05:45 08/28/24 06:17 Chemistry Test 08/28/24 06:17 Calcium Level 8.7 mg/dL (8.7-10.4) Urinalysis Test 08/26/24 14:55 Urine Color Light-yellow (Yellow) Urine Clarity Clear (Clear) Urine pH 5.5 (5.0-9.0) Urine Specific [place] 1.009 (1.001-1.035) Urine Protein Negative (Negative) Urine Ketones Negative (Negative) Urine Blood Negative /uL (Negative) Urine Nitrite Negative (Negative) Urine Bilirubin Negative (Negative) Urine Urobilinogen Normal mg/dL (Negative) Urine Leukocyte Esterase Negative /uL (Negative) Urine RBC None seen /hpf (0 - 3) Urine Microscopic WBC 2 /HPF (0-3) Urine Squamous Epithelial Cells None seen /hpf (<5) Urine Bacteria None seen /hpf (None Seen) Urine Glucose Normal mg/dL (Normal) Labs and/or images reviewed: Labs reviewed by me, Image(s) reviewed by me Assessment/Plan Assessment/Plan Impression: -acute kidney injury secondary to obstructive uropathy -obstructive uropathy secondary to prostatomegaly -elevated PSA, rule out prostate CA -normocytic anemia Plan: Events: Patient now with cramping in back and legs. No improvement in renal function despite Garcia catheter placement. -CT scan of the abdomen and pelvis without contrast -neurology consultation: Recommendations reviewed. -nephrology consultation: Recommendations reviewed. Continue sodium bicarbonate infusion. -patient with adequate urine output status post Garcia catheter. Continue to monitor hematuria -repeat PSA pending -repeat BMP in a.m. Total time spent with patient discussing and formulating plan of care: 35 minutes. This medical document was created using an electronic medical record system with [employer] dictation system. Although this document has been carefully reviewed, there may still be some phonetic and typographical errors. These areas are purely typographical due to imperfections of the software programs, and do not reflect any compromise in the patient's medical care. Plan discussed with: Patient, Other (RN ) My Orders Orders - CHRISTY BEAVER NP Procedure Category Date Status Time Baclofen Tablet PHA 08/28/24 In Process (Liorisal Tablet) 14:15 Morphine Sulfate PHA 08/28/24 In Process Injection 14:15 Date of Service: Aug 28, 2024 Billing Provider: CHRISTY BEAVER NP Common Visit Codes: [id number] INP/OBS CARE(HIGH) CHRISTY BEAVER NP Aug 28, 2024 14:36
[2024-08-28] MEDS: BACLOFEN 10 MG TAB PO PRN (14:47)
--- NOTE | 2024-08-28 16:48 | DVH ---
Indication: Renal failure, lower back pain, prostatomegaly Technique: CT axial images of the abdomen and pelvis are obtained without contrast. Coronal and sagit randa reformats were obtained. Radiation Dose Information: CTDI volume is 16.24 mGy. Dose-length product is 882.79 mGy*cm Comparison: None FINDINGS: There is limited interpretation of the abdomen and pelvis without administration of intravenous contr ast. Lung bases demonstrate no pleural effusion. Adrenal glands, spleen, pancreas and liver unremarkable in shape. No CT evidence for cholelithiasis. There is severe bilateral hydroureteronephrosis. Bilateral renal cortical thinning / parenchymal atr ophy, [id number]-uzse-left. Stomach partially distended. Small bowel loops are normal in caliber. Moderate to large volume stool throughout the colon. There are no secondary signs for appendicitis. Abdominal aortic atherosclerotic disease. The bladder is markedly distended. Garcia catheter. Severe irregular bladder wall thickening. Large h yperdense structure in the bladder lumen measuring 6.1 x 7.4 cm. Prostate measures 5.6 cm transversel y. Right inguinal hernia containing fat. Moderate to advanced lumbar degenerative disc disease. IMPRESSION: 1. Diffuse irregular bladder wall thickening. There is large hyperdensity in the 7.4 cm which could represent hemorrhage/ blood clot, neoplasm. Recommend urology consultation to evaluate for neoplasm, hemorrhagic cystitis and other etiologies. 2. Severe bilateral hydroureteronephrosis. There is associated bilateral renal cortical thinning and parenchymal atrophy, wujas-cdhhpgo-bbyl-left. 3. Prostatomegaly. 4. Atherosclerotic disease. 5. Other findings as described.
[2024-08-28] MEDS: MORPHINE SULFATE INJ 2 MG/ml SYRG IV ONE (16:52)
--- NOTE | 2024-08-28 19:06 | DVHPN2 ---
Progress Note - Dictate Date Seen: Aug 28, 2024 Medical Necessity Reason Pt with a Central, PICC or Fol: Yes The following are medically ne: Dixon Catheter Reason for dixon catheter: Bladder Retention/Obstruc, Strict I&O Subjective vomiting after dinner, severe leg cramps bilaterally. requesting full liquid diet vital signs Vital Sign Date Time Temp Pulse Resp B/P (MAP) Pulse Ox O2 Delivery O2 Flow Rate FiO2 08/28/24 17:00 97.2 72 17 86/57 (67) 97 97.2 08/28/24 08:00 Room Air* 0 21 Total Intake and Output 08/27/24 08/27/24 08/28/24 15:00 23:00 07:00 Intake Total 600 ml 350 ml 800 ml Output Total 2000 ml 250 ml 2125 ml Balance -1400 ml 100 ml -1325 ml medications Current Medications Medications Dose Ordered Sig/Kandi Route Start Time Stop Time Status Last Admin Dose Admin Tamsulosin HCl 0.4 mg QPM PO 08/27/24 18:00 08/28/24 18:17 0.4 MG Acetaminophen/ Hydrocodone Bitart 1 tab Q4HP PRN PO 08/26/24 19:30 08/28/24 13:54 1 TAB Ondansetron HCl 4 mg Q4HP PRN IV 08/26/24 19:30 08/27/24 20:12 4 MG Acetaminophen 650 mg Q6HP PRN PO 08/26/24 19:30 Ferrous Sulfate 325 mg BIDWM PO 08/27/24 18:00 08/28/24 18:17 325 MG Lactated Ringer's 1,000 ml @ 100 mls/hr Q10H IV 08/28/24 09:15 08/28/24 11:22 100 MLS/HR Baclofen 5 mg Q12HP PRN PO 08/28/24 14:15 08/28/24 14:47 5 MG Morphine Sulfate 1 mg Q3HP PRN IV 08/28/24 14:15 objective resting comfortably. non anxious laboratory and microbiology Laboratory Tests 08/28/24 06:17 08/27/24 05:45 Test 08/28/24 06:17 Range/Units Serum Glucose 104 74-106 mg/dL Assessment/Plan persistent hydronephrosis despite dixon catheter in place with good output x 48 hrs. possible bladder mass and prostatomegaly - will need cysto possible TURBT possible TURP after creatine normalizes. will obtain NM renal scan to r/o obstruction. If confirmed will ask IR to place bilateral PCNs. monitor renal function, nephrology onboard. keep dixon to gravity, monitor I&Os. Problems(with codes): (1) Hydroureteronephrosis (2) Acute renal failure (3) Enlarged prostate (4) Bladder outlet obstruction (5) Benign prostatic hyperplasia with lower urinary tract symptoms Prognosis guarded Plan discussed with: Patient, Other Total Time (mins): 30 MATTHEW GOMEZ NP Aug 28, 2024 19:06
[2024-08-28] MEDS: EPOETIN ALFA-EPBX 4,000 UNIT/ML VIAL SC ONE (20:57)
[2024-08-29] VITALS (8 sets, daily range): BP systolic 91–105; BP diastolic 46–67; PULSE 66–76; RESP 16–18; TEMP 97.6–98.6; O2SAT 92–98
[2024-08-29 05:49] LABS: Basophils # (auto) 0 10 ^3/uL (0-0.2); Basophils % (auto) 0.7 % (0.0-2.0); Eosinophils # (auto) 0.4 10 ^3/uL (0-0.8); Eosinophils % (auto) 5.6 % (0.0-7.0); Hematocrit 25.8 % (41.0-53.0); Hemoglobin 9.2 g/dL (13.5-17.5); Lymphocytes # (auto) 1.4 10 ^3/uL (0.4-5.4); Lymphocytes % (auto) 20.4 % (10.0-50.0); Mean Corpuscular Hemoglobin 33.3 pg (28.0-32.0); Mean Corpuscular Hgb Conc. 35.7 g/dL (32.0-36.0); Mean Corpuscular Volume 93.3 fL (80.0-100.0); Monocytes # (auto) 0.8 10 ^3/uL (0-1.3); Monocytes % (auto) 11.4 % (0.0-12.0); Neutrophils # (auto) 4.1 10 ^3/uL (1.6-8.6); Neutrophils % (auto) 61.9 % (37.0-80.0); Platelet Count (auto) 287 10^3/uL (140-450); Red Blood Cells 2.76 10^6/uL (4.5-5.90); Red Cell Distribution Width 13.1 % (11.8-14.3); White Blood Cell 6.7 10^3/uL (4.4-10.8)
[2024-08-29 05:59] LABS: Anion Gap 12 (5-15); Carbon Dioxide 26 mmol/L (20-31); Chloride 102 mmol/L (98-107); Potassium 4.3 mmol/L (3.5-5.1); Sodium 140 mmol/L (136-145)
[2024-08-29 06:00] LABS: Calcium 9.3 mg/dL (8.7-10.4)
[2024-08-29 06:05] LABS: BUN/Creatinine Ratio 8.3 (10.0-20.0); Blood Urea Nitrogen 57 mg/dL (9-23); Glucose 95 mg/dL (74-106)
--- NOTE | 2024-08-29 12:37 | DVHPN2 ---
Progress Note - Dictate Date Seen: Aug 29, 2024 Medical Necessity Reason Pt with a Central, PICC or Fol: Yes The following are medically ne: Dixon Catheter Reason for dixon catheter: Bladder Retention/Obstruc, Strict I&O Subjective vomiting after dinner, severe leg cramps bilaterally. requesting full liquid diet vital signs Vital Sign Date Time Temp Pulse Resp B/P (MAP) Pulse Ox O2 Delivery O2 Flow Rate FiO2 08/29/24 11:59 97.6 68 17 95/60 (72) 98 97.6 08/29/24 08:00 Room Air* 0 21 Total Intake and Output 08/28/24 08/28/24 08/29/24 15:00 23:00 07:00 Intake Total 1320 ml 1590 ml Output Total 2100 ml 1000 ml Balance -780 ml 590 ml medications Current Medications Medications Dose Ordered Sig/Kandi Route Start Time Stop Time Status Last Admin Dose Admin Tamsulosin HCl 0.4 mg QPM PO 08/27/24 18:00 08/28/24 18:17 0.4 MG Acetaminophen/ Hydrocodone Bitart 1 tab Q4HP PRN PO 08/26/24 19:30 08/28/24 21:03 1 TAB Ondansetron HCl 4 mg Q4HP PRN IV 08/26/24 19:30 08/27/24 20:12 4 MG Acetaminophen 650 mg Q6HP PRN PO 08/26/24 19:30 Ferrous Sulfate 325 mg BIDWM PO 08/27/24 18:00 08/29/24 08:14 325 MG Lactated Ringer's 1,000 ml @ 100 mls/hr Q10H IV 08/28/24 09:15 08/29/24 08:24 100 MLS/HR Baclofen 5 mg Q12HP PRN PO 08/28/24 14:15 08/28/24 14:47 5 MG Morphine Sulfate 1 mg Q3HP PRN IV 08/28/24 14:15 objective resting comfortably. non anxious laboratory and microbiology Laboratory Tests 08/29/24 05:26 Test 08/29/24 05:26 Range/Units Serum Glucose 95 74-106 mg/dL Assessment/Plan persistent hydronephrosis despite dixon catheter in place with good output x 48 hrs. possible bladder mass and prostatomegaly - will need cysto possible TURBT possible TURP after creatine normalizes. will obtain NM renal scan to r/o obstruction. If confirmed will ask IR to place bilateral PCNs. monitor renal function, nephrology onboard. keep dixon to gravity, monitor I&Os. Plan discussed with: Patient, Other MATTHEW GOMEZ NP Aug 29, 2024 12:37
--- NOTE | 2024-08-29 13:57 | DVHPN2 ---
Progress Note Date Seen: Aug 29, 2024 Medical Necessity Reason Pt with a Central, PICC or Fol: Yes The following are medically ne: Dixon Catheter Reason for dixon catheter: Bladder Retention/Obstruc, Strict I&O Subjective Patient reports: Feels better Objective vital signs Vital Sign Date Time Temp Pulse Resp B/P (MAP) Pulse Ox O2 Delivery O2 Flow Rate FiO2 08/29/24 11:59 97.6 68 17 95/60 (72) 98 97.6 08/29/24 08:00 Room Air* 0 21 Total Intake and Output 08/28/24 08/28/24 08/29/24 15:00 23:00 07:00 Intake Total 1320 ml 1590 ml Output Total 2100 ml 1000 ml Balance -780 ml 590 ml medications Current Medications Medications Dose Ordered Sig/Kandi Route Start Time Stop Time Status Last Admin Dose Admin Tamsulosin HCl 0.4 mg QPM PO 08/27/24 18:00 08/28/24 18:17 0.4 MG Acetaminophen/ Hydrocodone Bitart 1 tab Q4HP PRN PO 08/26/24 19:30 08/28/24 21:03 1 TAB Ondansetron HCl 4 mg Q4HP PRN IV 08/26/24 19:30 08/27/24 20:12 4 MG Acetaminophen 650 mg Q6HP PRN PO 08/26/24 19:30 Ferrous Sulfate 325 mg BIDWM PO 08/27/24 18:00 08/29/24 08:14 325 MG Lactated Ringer's 1,000 ml @ 100 mls/hr Q10H IV 08/28/24 09:15 08/29/24 08:24 100 MLS/HR Baclofen 5 mg Q12HP PRN PO 08/28/24 14:15 08/28/24 14:47 5 MG Morphine Sulfate 1 mg Q3HP PRN IV 08/28/24 14:15 Examination: GENERAL:Normal, CVS:Normal, SKIN:Normal, :Abnormal laboratory and microbiology Laboratory Tests 08/29/24 05:26 Test 08/29/24 05:26 Range/Units Serum Glucose 95 74-106 mg/dL Problem List/Assessment/Plan Problem List/Assessment/Plan 64-year-old male presented to the hospital at the request of primary medical physician due to probable urinary retention. Patient is found to have bilateral hydronephrosis in the setting of obstructive uropathy. Acute kidney injury secondary to bladder outlet obstruction due to enlarged prostate. Chronic kidney disease unspecified baseline unknown Anemia unspecified Metabolic acidosis continue dixon catheter, flush regularly Strict Is&Os Urology , pending NM renal scan and b/l PCNT by IR Avoid hypotension IV fluid hydration _> change to LR from bicarb drip now that acidosis resolved oral iron, Epogen Sub Q No emergent indication for hemodialysis at this time however patient's baseline renal function is unknown to me given no previous established medical care we will monitor for renal response. Cr currently remains high Plan discussed with: Patient JACKELINE LOYOLA MD Aug 29, 2024 13:57
--- NOTE | 2024-08-29 14:26 | DVHPN2 ---
Subjective Patient denies any symptoms at this time Reviewed: Care Plan, H&P, Labs, Medications Changes from previous H/P or p: No Changes General: Per HPI Objective Vitals Vital Signs Date Time Temp Pulse Resp B/P (MAP) Pulse Ox O2 Delivery O2 Flow Rate FiO2 08/29/24 11:59 97.6 68 17 95/60 (72) 98 97.6 08/29/24 08:00 Room Air* 0 21 Intake/Output Intake and Output 08/29/24 06:59 Intake Total 2910 ml Output Total 3100 ml Balance -190 ml Intake Oral 1810 ml IV Total 1100 ml Output Urine Total 3100 ml General Appearance: Alert, Oriented X3, Cooperative HEENT: Atraumatic, PERRLA Lungs: Clear to auscultation, Normal air movement Cardiovascular: Normal S1, Normal S2 Genitourinary: No Apparent Abnormalities (Garcia catheter), Hematuria Musculoskeletal: Normal sensory function, Normal motor function Skin: Dry, Intact Psych/Mental Status: Mental status NL, Mood NL Medications Current Medications Medications Dose Ordered Sig/Kandi Route Start Time Stop Time Status Last Admin Dose Admin Tamsulosin HCl 0.4 mg QPM PO 08/27/24 18:00 08/28/24 18:17 0.4 MG Acetaminophen/ Hydrocodone Bitart 1 tab Q4HP PRN PO 08/26/24 19:30 08/28/24 21:03 1 TAB Ondansetron HCl 4 mg Q4HP PRN IV 08/26/24 19:30 08/27/24 20:12 4 MG Acetaminophen 650 mg Q6HP PRN PO 08/26/24 19:30 Ferrous Sulfate 325 mg BIDWM PO 08/27/24 18:00 08/29/24 08:14 325 MG Lactated Ringer's 1,000 ml @ 100 mls/hr Q10H IV 08/28/24 09:15 08/29/24 08:24 100 MLS/HR Baclofen 5 mg Q12HP PRN PO 08/28/24 14:15 08/28/24 14:47 5 MG Morphine Sulfate 1 mg Q3HP PRN IV 08/28/24 14:15 Laboratory Results Laboratory Tests 08/29/24 05:26 Chemistry Test 08/29/24 05:26 Calcium Level 9.3 mg/dL (8.7-10.4) Urinalysis Test 08/26/24 14:55 Urine Color Light-yellow (Yellow) Urine Clarity Clear (Clear) Urine pH 5.5 (5.0-9.0) Urine Specific [place] 1.009 (1.001-1.035) Urine Protein Negative (Negative) Urine Ketones Negative (Negative) Urine Blood Negative /uL (Negative) Urine Nitrite Negative (Negative) Urine Bilirubin Negative (Negative) Urine Urobilinogen Normal mg/dL (Negative) Urine Leukocyte Esterase Negative /uL (Negative) Urine RBC None seen /hpf (0 - 3) Urine Microscopic WBC 2 /HPF (0-3) Urine Squamous Epithelial Cells None seen /hpf (<5) Urine Bacteria None seen /hpf (None Seen) Urine Glucose Normal mg/dL (Normal) Labs and/or images reviewed: Labs reviewed by me, Image(s) reviewed by me Assessment/Plan Assessment/Plan Impression: -acute kidney injury secondary to obstructive uropathy -obstructive uropathy secondary to prostatomegaly -elevated PSA, rule out prostate CA -normocytic anemia Plan: Events: Patient has CT scan abdomen and pelvis. Noted bilateral hydronephrosis.? Prostate CA with bladder mass. -CT scan of the abdomen and pelvis without contrast Urology consultation: Plans for Mag three renal scan with bilateral nephrostomy tube placement -nephrology consultation: Recommendations reviewed. -bone scan -pain management -repeat BMP in a.m. -discussion made with the patient regarding findings of CT scan and current plan of care. Patient was agreeable to all scans as well as bilateral nephrostomy tube placement. Total time spent with patient discussing and formulating plan of care: 35 minutes. This medical document was created using an electronic medical record system with [employer] dictation system. Although this document has been carefully reviewed, there may still be some phonetic and typographical errors. These areas are purely typographical due to imperfections of the software programs, and do not reflect any compromise in the patient's medical care. Plan discussed with: Patient, Other (RN) My Orders Orders - CHRISTY BEAVER NP Procedure Category Date Status Time Ct Ab Pel Wo Con-No CT 08/28/24 Resulted Oral Or Iv 14:32 Nm Bone 3 Phase NM 08/29/24 Logged 12:51 Date of Service: Aug 29, 2024 Billing Provider: CHRISTY BEAVER NP Common Visit Codes: [id number] INP/OBS CARE(HIGH) CHRISTY BEAVER UNDERWATER WELDER Aug 29, 2024 14:26
[2024-08-30] VITALS (8 sets, daily range): BP systolic 17–149; BP diastolic 43–97; PULSE 72–83; RESP 16–20; TEMP 97.9–98.3; O2SAT 92–99
[2024-08-30 05:26] LABS: Basophils # (auto) 0.1 10 ^3/uL (0-0.2); Basophils % (auto) 0.9 % (0.0-2.0); Eosinophils # (auto) 0.4 10 ^3/uL (0-0.8); Hemoglobin 9.7 g/dL (13.5-17.5); Lymphocytes # (auto) 1.2 10 ^3/uL (0.4-5.4); Lymphocytes % (auto) 18.6 % (10.0-50.0); Mean Corpuscular Hgb Conc. 34.8 g/dL (32.0-36.0); Mean Corpuscular Volume 94.8 fL (80.0-100.0); Monocytes # (auto) 0.8 10 ^3/uL (0-1.3); Neutrophils % (auto) 61.5 % (37.0-80.0); Nucleated Red Blood Cells % 0.1 %; Platelet Count (auto) 285 10^3/uL (140-450); Red Blood Cells 2.96 10^6/uL (4.5-5.90); Red Cell Distribution Width 13.2 % (11.8-14.3); White Blood Cell 6.4 10^3/uL (4.4-10.8)
[2024-08-30 05:37] LABS: Anion Gap 11 (5-15); Carbon Dioxide 25 mmol/L (20-31); Chloride 103 mmol/L (98-107); Potassium 4.2 mmol/L (3.5-5.1); Sodium 139 mmol/L (136-145)
[2024-08-30 05:38] LABS: Calcium 9.6 mg/dL (8.7-10.4)
[2024-08-30 05:43] LABS: BUN/Creatinine Ratio 8.1 (10.0-20.0); Glucose 90 mg/dL (74-106)
[2024-08-30 05:45] LABS: Blood Urea Nitrogen 48 mg/dL (9-23)
--- NOTE | 2024-08-30 09:46 | DVHPN2 ---
Subjective Patient denies any symptoms at this time Reviewed: Care Plan, H&P, Labs, Medications Changes from previous H/P or p: No Changes General: Per HPI Objective Vitals Vital Signs Date Time Temp Pulse Resp B/P (MAP) Pulse Ox O2 Delivery O2 Flow Rate FiO2 08/30/24 05:00 98.3 80 17 92/46 (61) 98 98.3 08/29/24 20:00 Room Air* 0 21 Intake/Output Intake and Output 08/30/24 07:00 Intake Total 2900 ml Output Total 2800 ml Balance 100 ml Intake Oral 950 ml IV Total 1950 ml Output Urine Total 2800 ml General Appearance: Alert, Oriented X3, Cooperative HEENT: Atraumatic, PERRLA Lungs: Clear to auscultation, Normal air movement Cardiovascular: Normal S1, Normal S2 Genitourinary: No Apparent Abnormalities (Garcia catheter), Hematuria Musculoskeletal: Normal sensory function, Normal motor function Skin: Dry, Intact Psych/Mental Status: Mental status NL, Mood NL Medications Current Medications Medications Dose Ordered Sig/Kandi Route Start Time Stop Time Status Last Admin Dose Admin Tamsulosin HCl 0.4 mg QPM PO 08/27/24 18:00 08/29/24 18:15 0.4 MG Acetaminophen/ Hydrocodone Bitart 1 tab Q4HP PRN PO 08/26/24 19:30 08/28/24 21:03 1 TAB Ondansetron HCl 4 mg Q4HP PRN IV 08/26/24 19:30 08/27/24 20:12 4 MG Acetaminophen 650 mg Q6HP PRN PO 08/26/24 19:30 Ferrous Sulfate 325 mg BIDWM PO 08/27/24 18:00 08/29/24 18:15 325 MG Lactated Ringer's 1,000 ml @ 100 mls/hr Q10H IV 08/28/24 09:15 08/30/24 05:50 100 MLS/HR Baclofen 5 mg Q12HP PRN PO 08/28/24 14:15 08/29/24 22:00 5 MG Morphine Sulfate 1 mg Q3HP PRN IV 08/28/24 14:15 Laboratory Results Laboratory Tests 08/30/24 05:07 Chemistry Test 08/30/24 05:07 Calcium Level 9.6 mg/dL (8.7-10.4) Urinalysis Test 08/26/24 14:55 Urine Color Light-yellow (Yellow) Urine Clarity Clear (Clear) Urine pH 5.5 (5.0-9.0) Urine Specific [place] 1.009 (1.001-1.035) Urine Protein Negative (Negative) Urine Ketones Negative (Negative) Urine Blood Negative /uL (Negative) Urine Nitrite Negative (Negative) Urine Bilirubin Negative (Negative) Urine Urobilinogen Normal mg/dL (Negative) Urine Leukocyte Esterase Negative /uL (Negative) Urine RBC None seen /hpf (0 - 3) Urine Microscopic WBC 2 /HPF (0-3) Urine Squamous Epithelial Cells None seen /hpf (<5) Urine Bacteria None seen /hpf (None Seen) Urine Glucose Normal mg/dL (Normal) Labs and/or images reviewed: Labs reviewed by me, Image(s) reviewed by me Assessment/Plan Assessment/Plan Impression: -acute kidney injury secondary to obstructive uropathy -obstructive uropathy secondary to prostatomegaly -elevated PSA, rule out prostate CA -normocytic anemia Plan: Events: No events overnight. Hemodynamically stable. Some improvement with renal function. Continue current plan of care with bilateral nephrostomy tubes, possible cystoscopy, Mag three renal scan, bone scan -CT scan of the abdomen and pelvis without contrast Urology consultation: Plans for Mag three renal scan with bilateral nephrostomy tube placement -nephrology consultation: Recommendations reviewed. -bone scan -pain management -repeat BMP in a.m. -discussion made with the patient regarding findings of CT scan and current plan of care. Patient was agreeable to all scans as well as bilateral nephrostomy tube placement. Total time spent with patient discussing and formulating plan of care: 35 minutes. This medical document was created using an electronic medical record system with [employer] dictation system. Although this document has been carefully reviewed, there may still be some phonetic and typographical errors. These areas are purely typographical due to imperfections of the software programs, and do not reflect any compromise in the patient's medical care. Plan discussed with: Patient, Other (RN) My Orders Orders - CHRISTY BEAVER NP Procedure Category Date Status Time Nm Bone 3 Phase NM 08/29/24 Logged 12:51 Date of Service: Aug 30, 2024 Billing Provider: CHRISTY BEAVER NP Common Visit Codes: [id number] INP/OBS CARE(HIGH) CHRISTY BEAVER UPTWISTER TENDER Aug 30, 2024 09:46
--- NOTE | 2024-08-30 11:11 | DVHPN2 ---
Progress Note - Dictate Date Seen: Aug 30, 2024 Medical Necessity Reason Pt with a Central, PICC or Fol: Yes The following are medically ne: Dixon Catheter Reason for dixon catheter: Bladder Retention/Obstruc, Strict I&O Subjective vomiting after dinner, severe leg cramps bilaterally. requesting full liquid diet vital signs Vital Sign Date Time Temp Pulse Resp B/P (MAP) Pulse Ox O2 Delivery O2 Flow Rate FiO2 08/30/24 09:00 98.0 82 20 91/43 (59) 98 98.0 08/30/24 08:00 Room Air* 0 21 Total Intake and Output 08/29/24 08/29/24 08/30/24 15:00 23:00 07:00 Intake Total 1400 ml 1500 ml Output Total 1450 ml 1350 ml Balance -50 ml 150 ml medications Current Medications Medications Dose Ordered Sig/Kandi Route Start Time Stop Time Status Last Admin Dose Admin Tamsulosin HCl 0.4 mg QPM PO 08/27/24 18:00 08/29/24 18:15 0.4 MG Acetaminophen/ Hydrocodone Bitart 1 tab Q4HP PRN PO 08/26/24 19:30 08/28/24 21:03 1 TAB Ondansetron HCl 4 mg Q4HP PRN IV 08/26/24 19:30 08/27/24 20:12 4 MG Acetaminophen 650 mg Q6HP PRN PO 08/26/24 19:30 Ferrous Sulfate 325 mg BIDWM PO 08/27/24 18:00 08/30/24 10:15 325 MG Lactated Ringer's 1,000 ml @ 100 mls/hr Q10H IV 08/28/24 09:15 08/30/24 10:17 100 MLS/HR Baclofen 5 mg Q12HP PRN PO 08/28/24 14:15 08/30/24 10:26 5 MG Morphine Sulfate 1 mg Q3HP PRN IV 08/28/24 14:15 objective resting comfortably. non anxious laboratory and microbiology Laboratory Tests 08/30/24 05:07 Test 08/30/24 05:07 Range/Units Serum Glucose 90 74-106 mg/dL Assessment/Plan persistent hydronephrosis despite dixon catheter in place with good output x 48 hrs. Creatinine slowly improving possible bladder mass and prostatomegaly - will need cysto possible TURBT possible TURP after creatine normalizes. will obtain NM renal scan to r/o obstruction. If confirmed will ask IR to place bilateral PCNs. monitor renal function, nephrology onboard. keep dixon to gravity, monitor I&Os. Dietary Evaluation Review Recommendations by RD: Protein Supplementation Comments: 1) Initiate Nepro bid 2) Encourage optimal PO intake 3) Follow-up with urology, nephrology, and oncology 4) Continue to monitor I&O, labs, and skin integrity Expected Outcomes/Goals: 1) appetite and labs to improve 2) f/u in 3-5 days Plan discussed with: Patient, Other MATTHEW GOMEZ DIRECTOR OF ADMISSIONS Aug 30, 2024 11:11
--- NOTE | 2024-08-30 12:05 | DVHPN2 ---
Progress Note Date Seen: Aug 30, 2024 Medical Necessity Reason Pt with a Central, PICC or Fol: Yes The following are medically ne: Dixon Catheter Reason for dixon catheter: Bladder Retention/Obstruc, Strict I&O Subjective Review of Systems: Deferred Objective vital signs Vital Sign Date Time Temp Pulse Resp B/P (MAP) Pulse Ox O2 Delivery O2 Flow Rate FiO2 08/30/24 09:00 98.0 82 20 91/43 (59) 98 98.0 08/30/24 08:00 Room Air* 0 21 Total Intake and Output 08/29/24 08/29/24 08/30/24 15:00 23:00 07:00 Intake Total 1400 ml 1500 ml Output Total 1450 ml 1350 ml Balance -50 ml 150 ml medications Current Medications Medications Dose Ordered Sig/Kandi Route Start Time Stop Time Status Last Admin Dose Admin Tamsulosin HCl 0.4 mg QPM PO 08/27/24 18:00 08/29/24 18:15 0.4 MG Acetaminophen/ Hydrocodone Bitart 1 tab Q4HP PRN PO 08/26/24 19:30 08/28/24 21:03 1 TAB Ondansetron HCl 4 mg Q4HP PRN IV 08/26/24 19:30 08/27/24 20:12 4 MG Acetaminophen 650 mg Q6HP PRN PO 08/26/24 19:30 Ferrous Sulfate 325 mg BIDWM PO 08/27/24 18:00 08/30/24 10:15 325 MG Lactated Ringer's 1,000 ml @ 100 mls/hr Q10H IV 08/28/24 09:15 08/30/24 10:17 100 MLS/HR Baclofen 5 mg Q12HP PRN PO 08/28/24 14:15 08/30/24 10:26 5 MG Morphine Sulfate 1 mg Q3HP PRN IV 08/28/24 14:15 Examination: GENERAL:Normal, CVS:Normal, SKIN:Normal, NEURO:Normal, :Abnormal laboratory and microbiology Laboratory Tests 08/30/24 05:07 Test 08/30/24 05:07 Range/Units Serum Glucose 90 74-106 mg/dL Problem List/Assessment/Plan Problem List/Assessment/Plan 64-year-old male presented to the hospital at the request of primary medical physician due to probable urinary retention. Patient is found to have bilateral hydronephrosis in the setting of obstructive uropathy. Acute kidney injury secondary to bladder outlet obstruction due to enlarged prostate. Chronic kidney disease unspecified baseline unknown Anemia unspecified Metabolic acidosis continue dixon catheter, flush regularly Strict Is&Os Urology , pending NM renal scan and b/l PCNT by IR Avoid hypotension IV fluid hydration _> change to LR from bicarb drip now that acidosis resolved oral iron, Epogen Sub Q No emergent indication for hemodialysis at this time however patient's baseline renal function is unknown to me given no previous established medical care we will monitor for renal response. Cr currently remains high Plan discussed with: Patient Dietary Evaluation Review Recommendations by RD: Protein Supplementation Comments: 1) Initiate Nepro bid 2) Encourage optimal PO intake 3) Follow-up with urology, nephrology, and oncology 4) Continue to monitor I&O, labs, and skin integrity Expected Outcomes/Goals: 1) appetite and labs to improve 2) f/u in 3-5 days JACKELINE LOYOLA MD Aug 30, 2024 12:05
[2024-08-31] VITALS (12 sets, daily range): BP systolic 92–132; BP diastolic 54–81; PULSE 71–92; RESP 12–18; TEMP 97.8–98.7; O2SAT 97–99
[2024-08-31 07:11] LABS: Anion Gap 10 (5-15); Carbon Dioxide 26 mmol/L (20-31); Chloride 104 mmol/L (98-107); Sodium 140 mmol/L (136-145)
[2024-08-31 07:12] LABS: Calcium 8.8 mg/dL (8.7-10.4)
[2024-08-31 07:15] LABS: INR 0.97 (0.9-1.15); Partial Thromboplastin Time 25.3 SEC (24.5-34.5); Prothrombin Time 10.3 sec (9.3-11.8)
[2024-08-31 07:17] LABS: BUN/Creatinine Ratio 8.5 (10.0-20.0); Blood Urea Nitrogen 44 mg/dL (9-23); Glucose 92 mg/dL (74-106)
[2024-08-31] MEDS: IODIXANOL 320MG/ML 100ML BTL IV ONE (10:28)
[2024-08-31] MEDS: MIDAZOLAM HCL 2MG/2ML 2ml VIAL (1mg/ml) ONE (10:41)
[2024-08-31] MEDS: LIDOCAINE 2%HCL (LOCAL ANESTH.) INJ 20ML MDV ONE (10:41)
[2024-08-31] MEDS: fentaNYL CITRATE 100 MCG/2 ML VL ONE (10:41)
[2024-08-31] MEDS: cefTRIAXone 1GM/50ML D5W 50 ML IV ONE (10:59)
--- NOTE | 2024-08-31 12:19 | DVHPN2 ---
Subjective Patient denies any symptoms at this time Reviewed: Care Plan, H&P, Labs, Medications Changes from previous H/P or p: No Changes General: Per HPI Objective Vitals Vital Signs Date Time Temp Pulse Resp B/P (MAP) Pulse Ox O2 Delivery O2 Flow Rate FiO2 08/31/24 09:00 98.0 92 18 128/79 (95) 97 98.0 08/31/24 07:30 Room Air* 0 21 Intake/Output Intake and Output 08/31/24 07:00 Intake Total 1800 ml Output Total 3100 ml Balance -1300 ml Intake Oral 800 ml IV Total 1000 ml Output Urine Total 3100 ml General Appearance: Alert, Oriented X3, Cooperative HEENT: Atraumatic, PERRLA Lungs: Clear to auscultation, Normal air movement Cardiovascular: Normal S1, Normal S2 Genitourinary: No Apparent Abnormalities (Garcia catheter), Hematuria Musculoskeletal: Normal sensory function, Normal motor function Skin: Dry, Intact Psych/Mental Status: Mental status NL, Mood NL Medications Current Medications Medications Dose Ordered Sig/Kandi Route Start Time Stop Time Status Last Admin Dose Admin Tamsulosin HCl 0.4 mg QPM PO 08/27/24 18:00 08/30/24 17:30 0.4 MG Acetaminophen/ Hydrocodone Bitart 1 tab Q4HP PRN PO 08/26/24 19:30 08/28/24 21:03 1 TAB Ondansetron HCl 4 mg Q4HP PRN IV 08/26/24 19:30 08/27/24 20:12 4 MG Acetaminophen 650 mg Q6HP PRN PO 08/26/24 19:30 Ferrous Sulfate 325 mg BIDWM PO 08/27/24 18:00 08/30/24 17:30 325 MG Lactated Ringer's 1,000 ml @ 100 mls/hr Q10H IV 08/28/24 09:15 08/31/24 05:00 100 MLS/HR Baclofen 5 mg Q12HP PRN PO 08/28/24 14:15 08/30/24 21:23 5 MG Morphine Sulfate 1 mg Q3HP PRN IV 08/28/24 14:15 Laboratory Results Laboratory Tests 08/30/24 05:07 08/31/24 05:54 Chemistry Test 08/31/24 05:54 Calcium Level 8.8 mg/dL (8.7-10.4) Coagulation Test 08/31/24 05:54 Prothrombin Time 10.3 sec (9.3-11.8) Prothrombin Time INR 0.97 (0.9-1.15) Activated Partial Thromboplast Time 25.3 SEC (24.5-34.5) Urinalysis Test 08/26/24 14:55 Urine Color Light-yellow (Yellow) Urine Clarity Clear (Clear) Urine pH 5.5 (5.0-9.0) Urine Specific [place] 1.009 (1.001-1.035) Urine Protein Negative (Negative) Urine Ketones Negative (Negative) Urine Blood Negative /uL (Negative) Urine Nitrite Negative (Negative) Urine Bilirubin Negative (Negative) Urine Urobilinogen Normal mg/dL (Negative) Urine Leukocyte Esterase Negative /uL (Negative) Urine RBC None seen /hpf (0 - 3) Urine Microscopic WBC 2 /HPF (0-3) Urine Squamous Epithelial Cells None seen /hpf (<5) Urine Bacteria None seen /hpf (None Seen) Urine Glucose Normal mg/dL (Normal) Microbiology Microbiology Date/Time Source Procedure Growth Status 08/30/24 18:30 Urine - [place] Urine Culture - Preliminary Resulted Labs and/or images reviewed: Labs reviewed by me, Image(s) reviewed by me Assessment/Plan Assessment/Plan Impression: -acute kidney injury secondary to obstructive uropathy -obstructive uropathy secondary to prostatomegaly -elevated PSA, rule out prostate CA -normocytic anemia Plan: Events: No events overnight. Patient is status post bilateral nephrostomy tube placement. Patient plans for? Mag three renal scan as well as bone scan today. Urology consultation: Plans for Mag three renal scan with bilateral nephrostomy tube placement -nephrology consultation: Recommendations reviewed. -bone scan -pain management -repeat BMP in a.m. Total time spent with patient discussing and formulating plan of care: 35 minutes. This medical document was created using an electronic medical record system with [employer] system. Although this document has been carefully reviewed, there may still be some phonetic and typographical errors. These areas are purely typographical due to imperfections of the software programs, and do not reflect any compromise in the patient's medical care. Plan discussed with: Patient, Other (RN) Date of Service: Aug 31, 2024 Billing Provider: SALBINO,[facility] [employer] ASSEMBLER Common Visit Codes: [id number] INP/OBS CARE(HIGH) CHRISTY BEAVER LIQUID CENTER ASSEMBLER Aug 31, 2024 12:19
--- NOTE | 2024-08-31 12:56 | DVH ---
US US GUIDANCE FOR NEEDLE PLACEME, HISTORY: BILATERAL NEPH TUBE for bilateral obstructive uropathy despite Garcia. PROCEDURE: Informed consent was obtained. The patient was placed on the fluoroscopic table in a prone position and IV sedation administered. The bilateral flank was prepped with chlorhexidine which was allowed to dry and draped in the usual sterile fashion. Time out was performed and the soft tissues infiltrated with 1% lidocaine local anesthetic. Utilizing ultrasound guidance, a 21 gauge Accu Stick needle was advanced from a posterolateral approach into an lower pole calyx, and a small amount of co ntrast was injected under fluoroscopy to confirm positioning. Over a mandril wire, exchange was made to a non-vascular access set, through which was advanced an 0.035 wire. Following serial dilation, an 8.5 spanish multipurpose nephrostomy catheter was placed with tip pigtailed within the renal pelvis. Position was confirmed with antegrade nephrostogram. The catheter was secured in place and connected to gravity drainage. A sterile dressing was applied. The same steps were applied for the right and le ft kidney. No immediate complication was identified. DAP 176.29 FLUOROSCOPY TIME: 4.2 minutes. CONTRAST USED: 20 mL . SEDATION: Dr. Bradly Yan was personally responsible for the administration of moderate sedation during the procedure performed, including the use of an independent trained observer who had no other duties during the procedure. The drugs utilized were IV fentanyl and versed (see nursing log for details). The total time of supervision by the attending physician was approximately 45 minutes. FINDINGS: Severely dilated bilateral renal collecting system involving the calyces/renal pelvis/urete r. New bilateral 8.5 spanish nephrostomy tube via a posterior lower pole calyceal access, with lo op coiled within the renal pelvis. IMPRESSION: Bilateral hydroureteronephrosis due to obstructive uropathy, status post placement of 8.5 spanish linda ateral percutaneous nephrostomy catheter. PLAN: Routine catheter care and exchanges in 3 months.
--- NOTE | 2024-08-31 12:56 | DVH ---
US US GUIDANCE FOR NEEDLE PLACEME, HISTORY: BILATERAL NEPH TUBE for bilateral obstructive uropathy despite Garcia. PROCEDURE: Informed consent was obtained. The patient was placed on the fluoroscopic table in a prone position and IV sedation administered. The bilateral flank was prepped with chlorhexidine which was allowed to dry and draped in the usual sterile fashion. Time out was performed and the soft tissues infiltrated with 1% lidocaine local anesthetic. Utilizing ultrasound guidance, a 21 gauge Accu Stick needle was advanced from a posterolateral approach into an lower pole calyx, and a small amount of co ntrast was injected under fluoroscopy to confirm positioning. Over a mandril wire, exchange was made to a non-vascular access set, through which was advanced an 0.035 wire. Following serial dilation, an 8.5 solomon islander multipurpose nephrostomy catheter was placed with tip pigtailed within the renal pelvis. Position was confirmed with antegrade nephrostogram. The catheter was secured in place and connected to gravity drainage. A sterile dressing was applied. The same steps were applied for the right and le ft kidney. No immediate complication was identified. DAP 176.29 FLUOROSCOPY TIME: 4.2 minutes. CONTRAST USED: 20 mL . SEDATION: Dr. Bradly Yan was personally responsible for the administration of moderate sedation during the procedure performed, including the use of an independent trained observer who had no other duties during the procedure. The drugs utilized were IV fentanyl and versed (see nursing log for details). The total time of supervision by the attending physician was approximately 45 minutes. FINDINGS: Severely dilated bilateral renal collecting system involving the calyces/renal pelvis/urete r. New bilateral 8.5 sol[place] islander nephrostomy tube via a posterior lower pole calyceal access, with lo op coiled within the renal pelvis. IMPRESSION: Bilateral hydroureteronephrosis due to obstructive uropathy, status post placement of 8.5 sol[place] islander linda ateral percutaneous nephrostomy catheter. PLAN: Routine catheter care and exchanges in 3 months.
--- NOTE | 2024-08-31 19:07 | DVHPN2 ---
Progress Note Date Seen: Aug 31, 2024 Medical Necessity Reason Pt with a Central, PICC or Fol: Yes The following are medically ne: Dixon Catheter Reason for dixon catheter: Bladder Retention/Obstruc, Strict I&O Subjective Patient reports: No new complaints Review of Systems: Deferred Objective vital signs Vital Sign Date Time Temp Pulse Resp B/P (MAP) Pulse Ox O2 Delivery O2 Flow Rate FiO2 08/31/24 17:00 98.7 89 18 97/54 (68) 98 98.7 08/31/24 07:30 Room Air* 0 21 Total Intake and Output 08/30/24 08/30/24 08/31/24 15:00 23:00 07:00 Intake Total 800 ml 1000 ml Output Total 1500 ml 1600 ml Balance -700 ml -600 ml medications Current Medications Medications Dose Ordered Sig/Kandi Route Start Time Stop Time Status Last Admin Dose Admin Tamsulosin HCl 0.4 mg QPM PO 08/27/24 18:00 08/31/24 17:37 0.4 MG Acetaminophen/ Hydrocodone Bitart 1 tab Q4HP PRN PO 08/26/24 19:30 08/28/24 21:03 1 TAB Ondansetron HCl 4 mg Q4HP PRN IV 08/26/24 19:30 08/27/24 20:12 4 MG Acetaminophen 650 mg Q6HP PRN PO 08/26/24 19:30 Ferrous Sulfate 325 mg BIDWM PO 08/27/24 18:00 08/31/24 17:37 325 MG Lactated Ringer's 1,000 ml @ 100 mls/hr Q10H IV 08/28/24 09:15 08/31/24 05:00 100 MLS/HR Baclofen 5 mg Q12HP PRN PO 08/28/24 14:15 08/30/24 21:23 5 MG Morphine Sulfate 1 mg Q3HP PRN IV 08/28/24 14:15 laboratory and microbiology Laboratory Tests 08/31/24 05:54 08/30/24 05:07 Test 08/31/24 05:54 Range/Units Serum Glucose 92 74-106 mg/dL Microbiology Date/Time Source Procedure Growth Status 08/30/24 18:30 Urine - Dixon Port Urine Culture - Preliminary Resulted Problem List/Assessment/Plan Problem List/Assessment/Plan Acute kidney injury secondary to bladder outlet obstruction due to enlarged prostate. Chronic kidney disease unspecified baseline unknown Anemia unspecified Metabolic acidosis Recommendations IR guided bilateral nephrostomy tube placement Monitor urine output Currently on IV fluids Plan discussed with: Patient Dietary Evaluation Review Recommendations by RD: Protein Supplementation Comments: 1) Initiate Nepro bid 2) Encourage optimal PO intake 3) Follow-up with urology, nephrology, and oncology 4) Continue to monitor I&O, labs, and skin integrity Expected Outcomes/Goals: 1) appetite and labs to improve 2) f/u in 3-5 days JAZMYN IVEY MD Aug 31, 2024 19:07
[2024-09-01] VITALS (8 sets, daily range): BP systolic 110–143; BP diastolic 71–92; PULSE 68–77; RESP 18–20; TEMP 97.4–98.5; O2SAT 96–99
--- NOTE | 2024-09-01 07:26 | ECG ---
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
--- NOTE | 2024-09-01 11:14 | DVHPN2 ---
Subjective Patient denies any symptoms at this time Reviewed: Care Plan, H&P, Labs, Medications Changes from previous H/P or p: No Changes General: Per HPI Objective Vitals Vital Signs Date Time Temp Pulse Resp B/P (MAP) Pulse Ox O2 Delivery O2 Flow Rate FiO2 09/01/24 09:00 98.5 72 20 128/79 (95) 98 98.5 09/01/24 08:01 Room Air* 0 21 Intake/Output Intake and Output 09/01/24 07:00 Intake Total 1560 ml Output Total 3100 ml Balance -1540 ml Intake Oral 1560 ml Output Urine Total 1950 ml Drainage Total 1150 ml General Appearance: Alert, Oriented X3, Cooperative HEENT: Atraumatic, PERRLA Lungs: Clear to auscultation, Normal air movement Cardiovascular: Normal S1, Normal S2 Genitourinary: No Apparent Abnormalities (Garcia catheter), Hematuria Musculoskeletal: Normal sensory function, Normal motor function Skin: Dry, Intact Psych/Mental Status: Mental status NL, Mood NL Medications Current Medications Medications Dose Ordered Sig/Kandi Route Start Time Stop Time Status Last Admin Dose Admin Tamsulosin HCl 0.4 mg QPM PO 08/27/24 18:00 08/31/24 17:37 0.4 MG Acetaminophen/ Hydrocodone Bitart 1 tab Q4HP PRN PO 08/26/24 19:30 08/28/24 21:03 1 TAB Ondansetron HCl 4 mg Q4HP PRN IV 08/26/24 19:30 08/27/24 20:12 4 MG Acetaminophen 650 mg Q6HP PRN PO 08/26/24 19:30 Ferrous Sulfate 325 mg BIDWM PO 08/27/24 18:00 09/01/24 09:16 325 MG Lactated Ringer's 1,000 ml @ 100 mls/hr Q10H IV 08/28/24 09:15 09/01/24 02:18 100 MLS/HR Baclofen 5 mg Q12HP PRN PO 08/28/24 14:15 09/01/24 09:16 5 MG Morphine Sulfate 1 mg Q3HP PRN IV 08/28/24 14:15 Laboratory Results Laboratory Tests 08/30/24 05:07 08/31/24 05:54 Urinalysis Test 08/26/24 14:55 Urine Color Light-yellow (Yellow) Urine Clarity Clear (Clear) Urine pH 5.5 (5.0-9.0) Urine Specific [place] 1.009 (1.001-1.035) Urine Protein Negative (Negative) Urine Ketones Negative (Negative) Urine Blood Negative /uL (Negative) Urine Nitrite Negative (Negative) Urine Bilirubin Negative (Negative) Urine Urobilinogen Normal mg/dL (Negative) Urine Leukocyte Esterase Negative /uL (Negative) Urine RBC None seen /hpf (0 - 3) Urine Microscopic WBC 2 /HPF (0-3) Urine Squamous Epithelial Cells None seen /hpf (<5) Urine Bacteria None seen /hpf (None Seen) Urine Glucose Normal mg/dL (Normal) Microbiology Microbiology Date/Time Source Procedure Growth Status 08/30/24 18:30 Urine - Garcia Port Urine Culture - Preliminary Resulted Labs and/or images reviewed: Labs reviewed by me, Image(s) reviewed by me Assessment/Plan Assessment/Plan Impression: -acute kidney injury secondary to obstructive uropathy -obstructive uropathy secondary to prostatomegaly -elevated PSA, rule out prostate CA -normocytic anemia Plan: Events: No events overnight. Patient with good urine output from bilateral nephrostomy tubes as well as Garcai catheter. Plans for bone scan today. Awaiting further recommendations by Urology. Urology consultation: With the recommendations appreciated -nephrology consultation: Recommendations reviewed. -bone scan -pain management -dietary consultation -repeat BMP in a.m. Total time spent with patient discussing and formulating plan of care: 35 minutes. This medical document was created using an electronic medical record system with [employer] dictation system. Although this document has been carefully reviewed, there may still be some phonetic and typographical errors. These areas are purely typographical due to imperfections of the software programs, and do not reflect any compromise in the patient's medical care. Plan discussed with: Patient, Other (RN) Date of Service: Sep 01, 2024 Billing Provider: CHRISTY BEAVER NP Common Visit Codes: 60481-IHY/OBS DISCH DAY >30min CHRISTY BEAVER NP Sep 01, 2024 11:14
--- NOTE | 2024-09-01 15:20 | DVHPN2 ---
Progress Note - Dictate Date Seen: Sep 01, 2024 Medical Necessity Reason Pt with a Central, PICC or Fol: Yes The following are medically ne: Dixon Catheter Reason for dixon catheter: Bladder Retention/Obstruc, Strict I&O Medical Necessity Reason Acute kidney injury Chronic kidney disease Bilateral hydronephrosis status post bilateral percutaneous nephrostomy tube placements Large bladder mass possible prostatic enlargement Subjective Patient appears to be comfortable and tolerating the nephrostomy tubes and the Dixon catheter. On my interview regarding his past urological symptoms, he commented that his urinary symptoms were not of any problematic issue for him. He would notice some slowing of the urination in the past however. vital signs Vital Sign Date Time Temp Pulse Resp B/P (MAP) Pulse Ox O2 Delivery O2 Flow Rate FiO2 09/01/24 13:28 98.4 77 20 110/71 (84) 99 98.4 09/01/24 08:01 Room Air* 0 21 Total Intake and Output 08/31/24 08/31/24 09/01/24 15:00 23:00 07:00 Intake Total 720 ml 840 ml Output Total 2225 ml 875 ml Balance -1505 ml -35 ml medications Current Medications Medications Dose Ordered Sig/Kandi Route Start Time Stop Time Status Last Admin Dose Admin Tamsulosin HCl 0.4 mg QPM PO 08/27/24 18:00 08/31/24 17:37 0.4 MG Acetaminophen/ Hydrocodone Bitart 1 tab Q4HP PRN PO 08/26/24 19:30 08/28/24 21:03 1 TAB Ondansetron HCl 4 mg Q4HP PRN IV 08/26/24 19:30 08/27/24 20:12 4 MG Acetaminophen 650 mg Q6HP PRN PO 08/26/24 19:30 Ferrous Sulfate 325 mg BIDWM PO 08/27/24 18:00 09/01/24 09:16 325 MG Lactated Ringer's 1,000 ml @ 100 mls/hr Q10H IV 08/28/24 09:15 09/01/24 02:18 100 MLS/HR Baclofen 5 mg Q12HP PRN PO 08/28/24 14:15 09/01/24 09:16 5 MG Morphine Sulfate 1 mg Q3HP PRN IV 08/28/24 14:15 objective RUN DATE: 09/01/24 PAGE 1 RUN TIME: [address] [facility] [address] [address] [place] [id number] Sabine Gan M.D., Laboratory Motor Route Carrier - PATIENT: MAHESH BARRAZA ACCT: [id number] LOC: [facility] U: [id number] AGE/SX: 64/M ROOM: [address] [place] [address] RE08/26/[address]: CHRISTY BEAVER NP : 1960 BED: 6 DIS: STATUS: ADM IN TLOC: - SPEC #: [id number] CAROLYN: 08/30/24-1829 STATUS: RES REQ #: [id number] RECD: 08/30/24-[address]: MATTHEW GOMEZ NP SOURCE: URINE,FOL ENTR: 08/30/24-[address]: ISAI EASLEY MD SPDC: BABAR KUMAR MD, SAMUEL S MD OLADELE, OPEYEMI M MD SALBINO, RANDOLPH NP ZHANG, RAY Y MD ORDERED: UR COMMENTS: 08/30/24 1721: NO SAMPLE IN LAB-LY NEEDS A NEW URINE SAMPLE -[id number] - Procedure Result - Urine Bacterial Culture Preliminary Report No growth after 36 hours incubation. The left percutaneous nephrostomy tube is draining very well. The right nephrostomy tube is less output and some hematuria noted. Minimal output from the Dixon catheter was observed. laboratory and microbiology Laboratory Tests 08/31/24 05:54 08/30/24 05:07 Test 08/31/24 05:54 Range/Units Serum Glucose 92 74-106 mg/dL Problem List Urinary retention Acute kidney injury on chronic kidney injury Large bladder mass suspicious for enlarged prostate gland rather than bladder cancer Azotemia slowly improving Assessment/Plan PSA level Urine culture is negative therefore a diagnostic cystoscopy to be arranged for under local anesthetic Dietary Evaluation Review Recommendations by RD: Protein Supplementation Comments: 1) Initiate Nepro bid 2) Encourage optimal PO intake 3) Follow-up with urology, nephrology, and oncology 4) Continue to monitor I&O, labs, and skin integrity Expected Outcomes/Goals: 1) appetite and labs to improve 2) f/u in 3-5 days Plan discussed with: Patient, Other LIAN GUTIERREZ MD Sep 01, 2024 15:20
[2024-09-01 16:04] LABS: Chloride 104 mmol/L (98-107); Potassium 4.3 mmol/L (3.5-5.1); Sodium 140 mmol/L (136-145)
[2024-09-01 16:05] LABS: Anion Gap 10 (5-15); Carbon Dioxide 26 mmol/L (20-31)
[2024-09-01 16:06] LABS: Calcium 9.4 mg/dL (8.7-10.4)
[2024-09-01 16:10] LABS: BUN/Creatinine Ratio 9.3 (10.0-20.0); Blood Urea Nitrogen 42 mg/dL (9-23); Glucose 90 mg/dL (74-106)
[2024-09-01 16:53] LABS: Basophils # (auto) 0 10 ^3/uL (0-0.2); Basophils % (auto) 0.6 % (0.0-2.0); Eosinophils # (auto) 0.3 10 ^3/uL (0-0.8); Eosinophils % (auto) 4.1 % (0.0-7.0); Hematocrit 28.3 % (41.0-53.0); Hemoglobin 9.8 g/dL (13.5-17.5); Lymphocytes # (auto) 1.1 10 ^3/uL (0.4-5.4); Lymphocytes % (auto) 18.8 % (10.0-50.0); Mean Corpuscular Hemoglobin 32.7 pg (28.0-32.0); Mean Corpuscular Hgb Conc. 34.6 g/dL (32.0-36.0); Mean Corpuscular Volume 94.4 fL (80.0-100.0); Monocytes # (auto) 0.8 10 ^3/uL (0-1.3); Neutrophils # (auto) 3.9 10 ^3/uL (1.6-8.6); Neutrophils % (auto) 63.5 % (37.0-80.0); Platelet Count (auto) 343 10^3/uL (140-450); Red Blood Cells 2.99 10^6/uL (4.5-5.90); Red Cell Distribution Width 13.2 % (11.8-14.3); White Blood Cell 6.1 10^3/uL (4.4-10.8)
--- NOTE | 2024-09-01 17:49 | DVH ---
Procedure: NM BONE WHOLE BODY Exam Date: 09/01/2024 02:24 PM Reason for study/Clinical History: probable prostate CA. Assess for bone metastatisis Comparison Study: None Prior correlative imaging: None Nuclear Medicine Whole Body Bone Scan Technique: Following the intravenous administration of 21 millicuries of technetium 99m labeled MDP, whole body images in the anterior and posterior projections were obtained 3 hours following the administration o f radiopharmaceutical. Additional delayed camera views of the skull were also obtained. Findings: There is mild symmetric multifocal activity overlying both shoulders consistent with mild degenerativ e change. The expected mild activity is noted overlying both kidneys and the bladder without evidence of obstru ction. Impression: There is no evidence of focal increased uptake consistent with bony metastatic disease. Mild multifocal activity consistent with degenerative changes as described above.
--- NOTE | 2024-09-01 18:47 | DVHPN2 ---
Progress Note Date Seen: Sep 01, 2024 Medical Necessity Reason Pt with a Central, PICC or Fol: Yes The following are medically ne: Dixon Catheter Reason for dixon catheter: Bladder Retention/Obstruc, Strict I&O Objective vital signs Vital Sign Date Time Temp Pulse Resp B/P (MAP) Pulse Ox O2 Delivery O2 Flow Rate FiO2 09/01/24 16:21 98.2 69 18 122/80 (94) 97 98.2 09/01/24 08:01 Room Air* 0 21 Total Intake and Output 08/31/24 08/31/24 09/01/24 15:00 23:00 07:00 Intake Total 720 ml 840 ml Output Total 2225 ml 875 ml Balance -1505 ml -35 ml medications Current Medications Medications Dose Ordered Sig/Kandi Route Start Time Stop Time Status Last Admin Dose Admin Tamsulosin HCl 0.4 mg QPM PO 08/27/24 18:00 09/01/24 16:39 0.4 MG Acetaminophen/ Hydrocodone Bitart 1 tab Q4HP PRN PO 08/26/24 19:30 08/28/24 21:03 1 TAB Ondansetron HCl 4 mg Q4HP PRN IV 08/26/24 19:30 08/27/24 20:12 4 MG Acetaminophen 650 mg Q6HP PRN PO 08/26/24 19:30 Ferrous Sulfate 325 mg BIDWM PO 08/27/24 18:00 09/01/24 16:39 325 MG Lactated Ringer's 1,000 ml @ 100 mls/hr Q10H IV 08/28/24 09:15 09/01/24 02:18 100 MLS/HR Baclofen 5 mg Q12HP PRN PO 08/28/24 14:15 09/01/24 09:16 5 MG Morphine Sulfate 1 mg Q3HP PRN IV 08/28/24 14:15 laboratory and microbiology Laboratory Tests 09/01/24 15:31 Test 09/01/24 15:31 Range/Units Serum Glucose 90 74-106 mg/dL Microbiology Date/Time Source Procedure Growth Status 08/30/24 18:30 Urine - Dixon Port Urine Culture - Preliminary Resulted Problem List/Assessment/Plan Problem List/Assessment/Plan Acute kidney injury secondary to bladder outlet obstruction due to enlarged prostate. Chronic kidney disease unspecified baseline unknown Anemia unspecified Metabolic acidosis ??prostatomegaly vs bladder mass Recommendations s/p IR guided bilateral nephrostomy tube placement Monitor urine output pending cystoscopy IV fluids Plan discussed with: Patient Dietary Evaluation Review Recommendations by RD: Protein Supplementation Comments: 1) Initiate Nepro bid 2) Encourage optimal PO intake 3) Follow-up with urology, nephrology, and oncology 4) Continue to monitor I&O, labs, and skin integrity Expected Outcomes/Goals: 1) appetite and labs to improve 2) f/u in 3-5 days JAZMYN IVEY MD Sep 01, 2024 18:47
[2024-09-02] VITALS (7 sets, daily range): BP systolic 93–113; BP diastolic 61–74; PULSE 82–91; RESP 14–18; TEMP 97.7–99.3; O2SAT 96–98
[2024-09-02 08:07] LABS: PSA Free 3.61 ng/mL; Prostate Specific Antigen 13.7 ng/mL (0.0-4.0)
--- NOTE | 2024-09-02 13:49 | DVHPN2 ---
Subjective Patient denies any symptoms at this time Reviewed: Care Plan, H&P, Labs, Medications Changes from previous H/P or p: No Changes General: Per HPI Objective Vitals Vital Signs Date Time Temp Pulse Resp B/P (MAP) Pulse Ox O2 Delivery O2 Flow Rate FiO2 09/02/24 09:00 99.3 91 16 112/74 (87) 98 99.3 09/02/24 08:09 Room Air* 0 21 Intake/Output Intake and Output 09/02/24 07:00 Intake Total 1160 ml Output Total 3775 ml Balance -2615 ml Intake Oral 1160 ml Output Urine Total 3275 ml Drainage Total 500 ml General Appearance: Alert, Oriented X3, Cooperative HEENT: Atraumatic, PERRLA Lungs: Clear to auscultation, Normal air movement Cardiovascular: Normal S1, Normal S2 Genitourinary: No Apparent Abnormalities (Garcia catheter), Hematuria Musculoskeletal: Normal sensory function, Normal motor function Neuro: Strength at 5/5 X4 ext, Cranial nerves 3-12 NL Skin: Dry, Intact Psych/Mental Status: Mental status NL, Mood NL Medications Current Medications Medications Dose Ordered Sig/Kandi Route Start Time Stop Time Status Last Admin Dose Admin Tamsulosin HCl 0.4 mg QPM PO 08/27/24 18:00 09/01/24 16:39 0.4 MG Acetaminophen/ Hydrocodone Bitart 1 tab Q4HP PRN PO 08/26/24 19:30 08/28/24 21:03 1 TAB Ondansetron HCl 4 mg Q4HP PRN IV 08/26/24 19:30 08/27/24 20:12 4 MG Acetaminophen 650 mg Q6HP PRN PO 08/26/24 19:30 Ferrous Sulfate 325 mg BIDWM PO 08/27/24 18:00 09/02/24 09:15 325 MG Baclofen 5 mg Q12HP PRN PO 08/28/24 14:15 09/01/24 21:53 5 MG Morphine Sulfate 1 mg Q3HP PRN IV 08/28/24 14:15 Lactated Ringer's 1,000 ml @ 60 mls/hr [id number] IV 09/02/24 13:45 Laboratory Results Laboratory Tests 09/01/24 15:31 Chemistry Test 09/01/24 15:31 Calcium Level 9.4 mg/dL (8.7-10.4) Urinalysis Test 08/26/24 14:55 Urine Color Light-yellow (Yellow) Urine Clarity Clear (Clear) Urine pH 5.5 (5.0-9.0) Urine Specific [place] 1.009 (1.001-1.035) Urine Protein Negative (Negative) Urine Ketones Negative (Negative) Urine Blood Negative /uL (Negative) Urine Nitrite Negative (Negative) Urine Bilirubin Negative (Negative) Urine Urobilinogen Normal mg/dL (Negative) Urine Leukocyte Esterase Negative /uL (Negative) Urine RBC None seen /hpf (0 - 3) Urine Microscopic WBC 2 /HPF (0-3) Urine Squamous Epithelial Cells None seen /hpf (<5) Urine Bacteria None seen /hpf (None Seen) Urine Glucose Normal mg/dL (Normal) Microbiology Microbiology Date/Time Source Procedure Growth Status 08/30/24 18:30 Urine - Garcia Port Urine Culture - Final Complete Labs and/or images reviewed: Labs reviewed by me, Image(s) reviewed by me Assessment/Plan Assessment/Plan Impression: -acute kidney injury secondary to obstructive uropathy -obstructive uropathy secondary to prostatomegaly -elevated PSA, rule out prostate CA -normocytic anemia Plan: Events: No events overnight. Patient continues to have urine output from Garcia catheter, good urine output from left nephrostomy tube. Decreased output from right nephrostomy tube. Discussed case with Urology. Plans for cystoscopy tomorrow. Patient agreeable Urology consultation: With the recommendations appreciated -nephrology consultation: Recommendations reviewed. -bone scan -pain management -dietary consultation -repeat BMP in a.m. Total time spent with patient discussing and formulating plan of care: 35 minutes. This medical document was created using an electronic medical record system with [employer] dictation system. Although this document has been carefully reviewed, there may still be some phonetic and typographical errors. These areas are purely typographical due to imperfections of the software programs, and do not reflect any compromise in the patient's medical care. Plan discussed with: Patient My Orders Orders - CHRISTY BEAVER DIRECTOR OF PRECLINICAL RESEARCH Procedure Category Date Status Time Lactated Ringer's PHA 09/02/24 In Process 13:45 Basic Metabolic Panel LAB 09/03/24 Verified 04:00 Complete Blood Count LAB 09/03/24 Verified 04:00 Date of Service: Sep 02, 2024 Billing Provider: CHRISTY BEAVER NP Common Visit Codes: [id number] INP/OBS CARE(HIGH) CHRISTY BEAVER NP Sep 02, 2024 13:49
[2024-09-02] MEDS: LACTATED RINGER'S 1,000 ML IV SCH (16:52)
--- NOTE | 2024-09-02 17:07 | DVHPN2 ---
Progress Note Date Seen: Sep 02, 2024 Medical Necessity Reason Pt with a Central, PICC or Fol: Yes The following are medically ne: Dixon Catheter Reason for dixon catheter: Bladder Retention/Obstruc, Strict I&O Subjective Patient reports: No new complaints, Feels better Review of Systems: HEENT:Normal, CVS:Normal, RESPIRATORY:Normal, GI:Normal, :Normal, MSK:Normal, NEURO:Normal Objective vital signs Vital Sign Date Time Temp Pulse Resp B/P (MAP) Pulse Ox O2 Delivery O2 Flow Rate FiO2 09/02/24 09:00 99.3 91 16 112/74 (87) 98 99.3 09/02/24 08:09 Room Air* 0 21 Total Intake and Output 09/01/24 09/01/24 09/02/24 15:00 23:00 07:00 Intake Total 1160 ml Output Total 2675 ml 1100 ml Balance -1515 ml -1100 ml medications Current Medications Medications Dose Ordered Sig/Kandi Route Start Time Stop Time Status Last Admin Dose Admin Tamsulosin HCl 0.4 mg QPM PO 08/27/24 18:00 09/02/24 16:53 0.4 MG Acetaminophen/ Hydrocodone Bitart 1 tab Q4HP PRN PO 08/26/24 19:30 08/28/24 21:03 1 TAB Ondansetron HCl 4 mg Q4HP PRN IV 08/26/24 19:30 08/27/24 20:12 4 MG Acetaminophen 650 mg Q6HP PRN PO 08/26/24 19:30 Ferrous Sulfate 325 mg BIDWM PO 08/27/24 18:00 09/02/24 16:52 325 MG Baclofen 5 mg Q12HP PRN PO 08/28/24 14:15 09/01/24 21:53 5 MG Morphine Sulfate 1 mg Q3HP PRN IV 08/28/24 14:15 Lactated Ringer's 1,000 ml @ 60 mls/hr [id number] IV 09/02/24 13:45 09/02/24 16:52 60 MLS/HR laboratory and microbiology Laboratory Tests 09/01/24 15:31 Test 09/01/24 15:31 Range/Units Serum Glucose 90 74-106 mg/dL Microbiology Date/Time Source Procedure Growth Status 08/30/24 18:30 Urine - Dixon Port Urine Culture - Final Complete Problem List/Assessment/Plan Problem List/Assessment/Plan Acute kidney injury secondary to bladder outlet obstruction due to enlarged prostate. Chronic kidney disease unspecified baseline unknown Anemia unspecified Metabolic acidosis ??prostatomegaly vs bladder mass Recommendations s/p IR guided bilateral nephrostomy tube placement, has Dixon catheter also Monitor urine output pending cystoscopy IV fluids Plan discussed with: Patient Dietary Evaluation Review Recommendations by RD: Protein Supplementation Comments: 1) Initiate Nepro bid 2) Encourage optimal PO intake 3) Follow-up with urology, nephrology, and oncology 4) Continue to monitor I&O, labs, and skin integrity Expected Outcomes/Goals: 1) appetite and labs to improve 2) f/u in 3-5 days JAZMYN IVEY MD Sep 02, 2024 17:07
[2024-09-03] VITALS (8 sets, daily range): BP systolic 98–124; BP diastolic 56–72; PULSE 73–104; RESP 14–18; TEMP 98.2–99.6; O2SAT 97–99
[2024-09-03 06:37] LABS: Basophils # (auto) 0 10 ^3/uL (0-0.2); Basophils % (auto) 0.6 % (0.0-2.0); Eosinophils # (auto) 0.1 10 ^3/uL (0-0.8); Eosinophils % (auto) 1.8 % (0.0-7.0); Hematocrit 28.6 % (41.0-53.0); Hemoglobin 10.1 g/dL (13.5-17.5); Lymphocytes # (auto) 0.7 10 ^3/uL (0.4-5.4); Lymphocytes % (auto) 9.4 % (10.0-50.0); Mean Corpuscular Hemoglobin 33.3 pg (28.0-32.0); Mean Corpuscular Hgb Conc. 35.3 g/dL (32.0-36.0); Mean Corpuscular Volume 94.2 fL (80.0-100.0); Monocytes # (auto) 0.8 10 ^3/uL (0-1.3); Monocytes % (auto) 10.7 % (0.0-12.0); Neutrophils # (auto) 5.9 10 ^3/uL (1.6-8.6); Neutrophils % (auto) 77.5 % (37.0-80.0); Platelet Count (auto) 359 10^3/uL (140-450); Red Blood Cells 3.03 10^6/uL (4.5-5.90); White Blood Cell 7.7 10^3/uL (4.4-10.8)
[2024-09-03 06:46] LABS: Alanine Aminotransferase 11 U/L (7-40); Alkaline Phosphatase 89 U/L (46-116); Anion Gap 12 (5-15); BUN/Creatinine Ratio 9.2 (10.0-20.0); Calcium 9.8 mg/dL (8.7-10.4); Carbon Dioxide 24 mmol/L (20-31); Chloride 103 mmol/L (98-107); Glucose 102 mg/dL (74-106); Potassium 4.4 mmol/L (3.5-5.1); Sodium 139 mmol/L (136-145); Total Protein 7.1 g/dL (5.7-8.2)
[2024-09-03 06:47] LABS: Albumin 4.2 g/dL (3.2-4.8); Aspartate Aminotransferase 11 U/L (<34)
[2024-09-03 06:50] LABS: Bilirubin, Total 0.3 mg/dL (0.2-1.0); Blood Urea Nitrogen 42 mg/dL (9-23)
--- NOTE | 2024-09-03 09:03 | DVH ---
CHEST RADIOGRAPH Indication: surgery Technique: Single frontal view of the chest was obtained COMPARISON: None FINDINGS: Lines and Tubes: None Lungs: Clear Pleura: No effusion. No pneumothorax. Cardiomediastinal contours: Unremarkable Bones: Chronic appearing right rib fractures. IMPRESSION: No acute disease.
--- NOTE | 2024-09-03 10:05 | DVHPN2 ---
Progress Note Date Seen: Sep 03, 2024 Medical Necessity Reason Pt with a Central, PICC or Fol: Yes The following are medically ne: Dixon Catheter Reason for dixon catheter: Bladder Retention/Obstruc, Strict I&O Subjective Patient reports: No new complaints Review of Systems: Deferred Objective vital signs Vital Sign Date Time Temp Pulse Resp B/P (MAP) Pulse Ox O2 Delivery O2 Flow Rate FiO2 09/03/24 05:00 99.4 102 17 103/72 (82) 97 99.4 09/02/24 20:00 Room Air* 0 21 Total Intake and Output 09/02/24 09/02/24 09/03/24 15:00 23:00 07:00 Intake Total 820 ml Output Total 220 ml 850 ml 1340 ml Balance -220 ml -30 ml -1340 ml medications Current Medications Medications Dose Ordered Sig/Kandi Route Start Time Stop Time Status Last Admin Dose Admin Tamsulosin HCl 0.4 mg QPM PO 08/27/24 18:00 09/02/24 16:53 0.4 MG Acetaminophen/ Hydrocodone Bitart 1 tab Q4HP PRN PO 08/26/24 19:30 08/28/24 21:03 1 TAB Ondansetron HCl 4 mg Q4HP PRN IV 08/26/24 19:30 08/27/24 20:12 4 MG Acetaminophen 650 mg Q6HP PRN PO 08/26/24 19:30 Ferrous Sulfate 325 mg BIDWM PO 08/27/24 18:00 09/02/24 16:52 325 MG Baclofen 5 mg Q12HP PRN PO 08/28/24 14:15 09/01/24 21:53 5 MG Morphine Sulfate 1 mg Q3HP PRN IV 08/28/24 14:15 Lactated Ringer's 1,000 ml @ 60 mls/hr [id number] IV 09/02/24 13:45 09/03/24 03:13 60 MLS/HR Examination: GENERAL:Normal, HEENT:Normal, NECK:Normal, LUNGS:Normal, CVS:Normal, ABDOMEN:Normal, MSK:Normal, SKIN:Normal, NEURO:Normal, :Abnormal laboratory and microbiology Laboratory Tests 09/03/24 05:39 Test 09/03/24 05:39 Range/Units Serum Glucose 102 74-106 mg/dL Microbiology Date/Time Source Procedure Growth Status 08/30/24 18:30 Urine - Dixon Port Urine Culture - Final Complete Problem List/Assessment/Plan Problem List/Assessment/Plan Acute kidney injury secondary to bladder outlet obstruction due to enlarged prostate. Chronic kidney disease unspecified baseline unknown Anemia unspecified Metabolic acidosis ??prostatomegaly vs bladder mass Recommendations s/p IR guided bilateral nephrostomy tube placement, Monitor urine output pending cystoscopy IV fluids--rate reduced Plan discussed with: Patient Dietary Evaluation Review Recommendations by RD: Protein Supplementation Comments: 1) Initiate Nepro bid 2) Encourage optimal PO intake 3) Follow-up with urology, nephrology, and oncology 4) Continue to monitor I&O, labs, and skin integrity Expected Outcomes/Goals: 1) appetite and labs to improve 2) f/u in 3-5 days JAZMYN IVEY MD Sep 03, 2024 10:05
--- NOTE | 2024-09-03 10:32 | DVHPN2 ---
Subjective Patient denies any symptoms at this time Reviewed: Care Plan, H&P, Labs, Medications Changes from previous H/P or p: No Changes General: Per HPI Objective Vitals Vital Signs Date Time Temp Pulse Resp B/P (MAP) Pulse Ox O2 Delivery O2 Flow Rate FiO2 09/03/24 09:00 98.7 76 18 108/58 (75) 97 98.7 09/03/24 08:00 Room Air* 0 21 Intake/Output Intake and Output 09/03/24 07:00 Intake Total 820 ml Output Total 2410 ml Balance -1590 ml Intake Oral 820 ml Output Urine Total 910 ml Drainage Total 1500 ml General Appearance: Alert, Oriented X3, Cooperative HEENT: Atraumatic, PERRLA Lungs: Clear to auscultation, Normal air movement Cardiovascular: Normal S1, Normal S2 Genitourinary: No Apparent Abnormalities (Garcia catheter), Hematuria Musculoskeletal: Normal sensory function, Normal motor function Neuro: Strength at 5/5 X4 ext, Cranial nerves 3-12 NL Skin: Dry, Intact Psych/Mental Status: Mental status NL, Mood NL Medications Current Medications Medications Dose Ordered Sig/Kandi Route Start Time Stop Time Status Last Admin Dose Admin Tamsulosin HCl 0.4 mg QPM PO 08/27/24 18:00 09/02/24 16:53 0.4 MG Acetaminophen/ Hydrocodone Bitart 1 tab Q4HP PRN PO 08/26/24 19:30 08/28/24 21:03 1 TAB Ondansetron HCl 4 mg Q4HP PRN IV 08/26/24 19:30 08/27/24 20:12 4 MG Acetaminophen 650 mg Q6HP PRN PO 08/26/24 19:30 Ferrous Sulfate 325 mg BIDWM PO 08/27/24 18:00 09/02/24 16:52 325 MG Baclofen 5 mg Q12HP PRN PO 08/28/24 14:15 09/01/24 21:53 5 MG Morphine Sulfate 1 mg Q3HP PRN IV 08/28/24 14:15 Lactated Ringer's 1,000 ml @ 60 mls/hr [id number] IV 09/02/24 13:45 09/03/24 03:13 60 MLS/HR Laboratory Results Laboratory Tests 09/03/24 05:39 Chemistry Test 09/03/24 05:39 Albumin 4.2 g/dL (3.2-4.8) Calcium Level 9.8 mg/dL (8.7-10.4) Total Protein 7.1 g/dL (5.7-8.2) LFT Test 09/03/24 05:39 Alanine Aminotransferase (ALT) 11 U/L (7-40) Alkaline Phosphatase 89 U/L (46-116) Aspartate Amino Transferase (AST) 11 U/L (<34) Total Bilirubin 0.3 mg/dL (0.2-1.0) Urinalysis Test 08/26/24 14:55 Urine Color Light-yellow (Yellow) Urine Clarity Clear (Clear) Urine pH 5.5 (5.0-9.0) Urine Specific [place] 1.009 (1.001-1.035) Urine Protein Negative (Negative) Urine Ketones Negative (Negative) Urine Blood Negative /uL (Negative) Urine Nitrite Negative (Negative) Urine Bilirubin Negative (Negative) Urine Urobilinogen Normal mg/dL (Negative) Urine Leukocyte Esterase Negative /uL (Negative) Urine RBC None seen /hpf (0 - 3) Urine Microscopic WBC 2 /HPF (0-3) Urine Squamous Epithelial Cells None seen /hpf (<5) Urine Bacteria None seen /hpf (None Seen) Urine Glucose Normal mg/dL (Normal) Microbiology Microbiology Date/Time Source Procedure Growth Status 08/30/24 18:30 Urine - Garcia Port Urine Culture - Final Complete Labs and/or images reviewed: Labs reviewed by me, Image(s) reviewed by me Assessment/Plan Assessment/Plan Impression: -acute kidney injury secondary to obstructive uropathy -obstructive uropathy secondary to prostatomegaly -elevated PSA, rule out prostate CA -normocytic anemia Plan: Events: No events overnight. Plans for cystoscopy today. Further course of care per findings by Urology. Urology consultation: With the recommendations appreciated -nephrology consultation: Recommendations reviewed. -bone scan -pain management -dietary consultation -repeat BMP in a.m. Total time spent with patient discussing and formulating plan of care: 35 minutes. This medical document was created using an electronic medical record system with [employer] system. Although this document has been carefully reviewed, there may still be some phonetic and typographical errors. These areas are purely typographical due to imperfections of the software programs, and do not reflect any compromise in the patient's medical care. Plan discussed with: Patient, Other (RN) My Orders Orders - CHRISTY BEAVER NP Procedure Category Date Status Time Lactated Ringer's PHA 09/02/24 In Process 13:45 Chest Portable XY 09/03/24 Resulted 06:00 Date of Service: Sep 03, 2024 Billing Provider: CHRISTY BEAVER NP Common Visit Codes: [id number] INP/OBS CARE(HIGH) CHRISTY BEAVER NP Sep 03, 2024 10:32
--- NOTE | 2024-09-03 12:19 | DVHNC2 ---
Procedure - OPERATIVE REPORT Pre-op. Diagnosis: Bladder mass/enlarged prostate Bilateral hydronephrosis BPH Azotemia Post-op. Diagnosis: Same as pre-op diagnosis Operation: Cystoscopy (04156) Anesthesia: Local, lidocaine gel Indications: Patient has bilateral hydronephrosis, s/p bilateral PNT placements. Large bladder mass reported on CT Scan. The indications, risks, complications, alternatives and benefits of a diagnostic cystoscopy is discussed with the patient. All questions were encouraged and answered. Patient elected to proceed and consent is obtained. Details of Procedure: Patient is given Local anesthesia with lidocaine gel in the appropriate position. Area of the genitalia is prepped and draped in usual sterile fashion. Cystoscope is used to examine the urethra and bladder. Findings are noted. P atient tolerated the procedure well and all instrument counts are correct at the end of the examination. Specimens: None Complications: None Findings: Urethra: patent prostate: Massively enlarged and protruding into the bladder. Bladder: Decompensated, severely trabeculated bladder mucosa noted. Ureteric orifices were not identifiable. Notes: Patient will need a simple prostatectomy (TURP versus Aquablation ) subsequently the nephrostomy tube we will need to be converted into antegrade ureteral stents per Interventional Radiology. LIAN GUTIERREZ MD Sep 03, 2024 12:19
--- NOTE | 2024-09-03 12:25 | DVHPN2 ---
Progress Note - Dictate Date Seen: Sep 03, 2024 Medical Necessity Reason Pt with a Central, PICC or Fol: Yes The following are medically ne: Dixon Catheter Reason for dixon catheter: Bladder Retention/Obstruc, Strict I&O Medical Necessity Reason Bilateral hydronephrosis with obstructive uropathy status post nephrostomy tubes BPH with bladder outlet obstruction Subjective Patient appears to be comfortable and tolerating the nephrostomy tubes and the Dixon catheter. Patient agreed to a diagnostic bedside cystoscopy vital signs Vital Sign Date Time Temp Pulse Resp B/P (MAP) Pulse Ox O2 Delivery O2 Flow Rate FiO2 09/03/24 09:00 98.7 76 18 108/58 (75) 97 98.7 09/03/24 08:00 Room Air* 0 21 Total Intake and Output 09/02/24 09/02/24 09/03/24 15:00 23:00 07:00 Intake Total 820 ml Output Total 220 ml 850 ml 1340 ml Balance -220 ml -30 ml -1340 ml medications Current Medications Medications Dose Ordered Sig/Kandi Route Start Time Stop Time Status Last Admin Dose Admin Tamsulosin HCl 0.4 mg QPM PO 08/27/24 18:00 09/02/24 16:53 0.4 MG Acetaminophen/ Hydrocodone Bitart 1 tab Q4HP PRN PO 08/26/24 19:30 08/28/24 21:03 1 TAB Ondansetron HCl 4 mg Q4HP PRN IV 08/26/24 19:30 08/27/24 20:12 4 MG Acetaminophen 650 mg Q6HP PRN PO 08/26/24 19:30 Ferrous Sulfate 325 mg BIDWM PO 08/27/24 18:00 09/02/24 16:52 325 MG Baclofen 5 mg Q12HP PRN PO 08/28/24 14:15 09/01/24 21:53 5 MG Morphine Sulfate 1 mg Q3HP PRN IV 08/28/24 14:15 Lactated Ringer's 1,000 ml @ 60 mls/hr [id number] IV 09/02/24 13:45 09/03/24 03:13 60 MLS/HR objective RUN DATE: 09/01/24 PAGE 1 RUN TIME: [address] [facility] [address] [place], [place] [address] Sabine Gan M.D., Laboratory Hospital Supervisor - PATIENT: MAHESH BARRAZA ACCT: [id number] LOC: [facility] U: [id number] AGE/SX: 64/M ROOM: [address] [place] [address] RE08/26/[address]: CHRISTY BEAVER NP : 1960 BED: 6 DIS: STATUS: ADM IN TLOC: - SPEC #: [id number] CAROLYN: 08/30/24-183 STATUS: RES REQ #: [id number] RECD: 08/30/24-[address]: MATTHEW GOMEZ NP SOURCE: URINE,FOL ENTR: 08/30/24-[address]: ISAI EASLEY [facility]: BABAR KUMAR MD, SAMUEL S MD OLADELE, OPEYEMI M MD SALBINO, RANDOLPH NP ZHANG, RAY Y MD ORDERED: UR COMMENTS: 08/30/24 1721: NO SAMPLE IN LAB-LY NEEDS A NEW URINE SAMPLE -[id number] - Procedure Result - Urine Bacterial Culture Preliminary Report No growth after 36 hours incubation. The left percutaneous nephrostomy tube is draining very well. The right nephrostomy tube is less output and some hematuria noted. Minimal output from the Dixon catheter was observed. Cystoscopy was performed laboratory and microbiology Laboratory Tests 09/03/24 05:39 Test 09/03/24 05:39 Range/Units Serum Glucose 102 74-106 mg/dL Problem List Urinary retention Acute kidney injury on chronic kidney injury Large bladder mass=enlarged prostate gland Azotemia slowly improving Severely decompensated bladder Assessment/Plan PSA level elevated at 13.7 Diagnostic cystoscopy shows massively enlarged prostate gland We will need to obtain a prostate volume to see if we can proceed with a prostatectomy (open versus TURP versus Aquablation) Once the prostatectomies completed, he will need antegrade placement of ureteral stents by Interventional Radiology Dietary Evaluation Review Recommendations by RD: Protein Supplementation Comments: 1) Initiate Nepro bid 2) Encourage optimal PO intake 3) Follow-up with urology, nephrology, and oncology 4) Continue to monitor I&O, labs, and skin integrity Expected Outcomes/Goals: 1) appetite and labs to improve 2) f/u in 3-5 days Plan discussed with: Patient, Other LIAN GUTIERREZ MD Sep 03, 2024 12:24
[2024-09-03] MEDS: LIDOCAINE 2% JELLY 11ml (GLYDO) UR ONE (15:00)
[2024-09-04] VITALS (9 sets, daily range): BP systolic 95–125; BP diastolic 60–80; PULSE 71–80; RESP 12–18; TEMP 97.5–98.4; O2SAT 92–99
--- NOTE | 2024-09-04 09:34 | DVHPN2 ---
Progress Note Date Seen: Sep 04, 2024 Medical Necessity Reason Pt with a Central, PICC or Fol: Yes The following are medically ne: Dixon Catheter Reason for dixon catheter: Bladder Retention/Obstruc, Strict I&O Subjective Patient reports: No new complaints Other Systems: Patient seen and examined by myself today in follow-up Objective vital signs Vital Sign Date Time Temp Pulse Resp B/P (MAP) Pulse Ox O2 Delivery O2 Flow Rate FiO2 09/04/24 09:00 98.0 79 18 103/69 (80) 98 98.0 09/03/24 20:00 Room Air* 0 21 Total Intake and Output 09/03/24 09/03/24 09/04/24 15:00 23:00 07:00 Intake Total 310 ml 0 ml Output Total 800 ml 850 ml Balance -490 ml -850 ml medications Current Medications Medications Dose Ordered Sig/Kandi Route Start Time Stop Time Status Last Admin Dose Admin Tamsulosin HCl 0.4 mg QPM PO 08/27/24 18:00 09/03/24 17:02 0.4 MG Acetaminophen/ Hydrocodone Bitart 1 tab Q4HP PRN PO 08/26/24 19:30 08/28/24 21:03 1 TAB Ondansetron HCl 4 mg Q4HP PRN IV 08/26/24 19:30 08/27/24 20:12 4 MG Acetaminophen 650 mg Q6HP PRN PO 08/26/24 19:30 Ferrous Sulfate 325 mg BIDWM PO 08/27/24 18:00 09/03/24 17:02 325 MG Baclofen 5 mg Q12HP PRN PO 08/28/24 14:15 09/01/24 21:53 5 MG Morphine Sulfate 1 mg Q3HP PRN IV 08/28/24 14:15 Lactated Ringer's 1,000 ml @ 60 mls/hr [id number] IV 09/02/24 13:45 09/03/24 03:13 60 MLS/HR Examination: LUNGS:Normal, CVS:Normal, MSK:Normal laboratory and microbiology Laboratory Tests 09/03/24 05:39 Test 09/03/24 05:39 Range/Units Serum Glucose 102 74-106 mg/dL Microbiology Date/Time Source Procedure Growth Status 08/30/24 18:30 Urine - Dixon Port Urine Culture - Final Complete Problem List/Assessment/Plan Problem List/Assessment/Plan Acute kidney injury superimposed 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 Chronic kidney disease unknown baseline kidney function Anemia of chronic kidney disease Enlarged prostate High PSA Recommendations Kidney function slightly improving Increased urine output Dixon catheter Renal diet Noted plan for TURP We will continue to follow up Plan discussed with: Patient Dietary Evaluation Review Recommendations by RD: Protein Supplementation Comments: 1) Initiate Nepro bid 2) Encourage optimal PO intake 3) Follow-up with urology, nephrology, and oncology 4) Continue to monitor I&O, labs, and skin integrity Expected Outcomes/Goals: 1) appetite and labs to improve 2) f/u in 3-5 days GAMALIEL JENNINGS MD Sep 04, 2024 09:34
[2024-09-04] MEDS: fentaNYL CITRATE 100 MCG/2 ML VL ONE (09:38)
[2024-09-04] MEDS: LIDOCAINE 2%HCL (LOCAL ANESTH.) INJ 20ML MDV ONE (09:38)
[2024-09-04] MEDS: MIDAZOLAM HCL 2MG/2ML 2ml VIAL (1mg/ml) ONE (09:38)
[2024-09-04] MEDS: IODIXANOL 320MG/ML 100ML BTL IV ONE (09:52)
--- NOTE | 2024-09-04 10:18 | DVHPN2 ---
Progress Note - Dictate Date Seen: Sep 04, 2024 Medical Necessity Reason Pt with a Central, PICC or Fol: Yes The following are medically ne: Dixon Catheter Reason for dixon catheter: Bladder Retention/Obstruc, Strict I&O Medical Necessity Reason Azotemia and bilateral hydronephrosis requiring percutaneous nephrostomy tubes Subjective Patient appears to be comfortable and tolerating the nephrostomy tubes and the Dixon catheter. Patient agreed to a diagnostic bedside cystoscopy vital signs Vital Sign Date Time Temp Pulse Resp B/P (MAP) Pulse Ox O2 Delivery O2 Flow Rate FiO2 09/04/24 09:00 98.0 79 18 103/69 (80) 98 98.0 09/03/24 20:00 Room Air* 0 21 Total Intake and Output 09/03/24 09/03/24 09/04/24 15:00 23:00 07:00 Intake Total 310 ml 0 ml Output Total 800 ml 850 ml Balance -490 ml -850 ml medications Current Medications Medications Dose Ordered Sig/Kandi Route Start Time Stop Time Status Last Admin Dose Admin Tamsulosin HCl 0.4 mg QPM PO 08/27/24 18:00 09/03/24 17:02 0.4 MG Acetaminophen/ Hydrocodone Bitart 1 tab Q4HP PRN PO 08/26/24 19:30 08/28/24 21:03 1 TAB Ondansetron HCl 4 mg Q4HP PRN IV 08/26/24 19:30 08/27/24 20:12 4 MG Acetaminophen 650 mg Q6HP PRN PO 08/26/24 19:30 Ferrous Sulfate 325 mg BIDWM PO 08/27/24 18:00 09/03/24 17:02 325 MG Baclofen 5 mg Q12HP PRN PO 08/28/24 14:15 09/01/24 21:53 5 MG Morphine Sulfate 1 mg Q3HP PRN IV 08/28/24 14:15 Lactated Ringer's 1,000 ml @ 60 mls/hr [id number] IV 09/02/24 13:45 09/03/24 03:13 60 MLS/HR objective RUN DATE: 09/01/24 PAGE 1 RUN TIME: [address] [facility] [address] [place], [place] [address] Sabine Gan M.D., Laboratory Physician In Private Practice - PATIENT: MAHESH BARRAZA ACCT: [id number] LOC: [facility] U: [id number] AGE/SX: 64/M ROOM: 0244ADS RE08/26/[address]: CHRISTY BEAVER SPINE SPECIALIST : 1960 BED: 6 DIS: STATUS: ADM IN TLOC: - SPEC #: [id number] CAROLYN: 08/30/24-183 STATUS: RES REQ #: [id number] RECD: 08/30/24-[address]: MATTHEW GOMEZ NP SOURCE: URINE,FOL ENTR: 08/30/24-[address]: ISAI EASLEY MD SPDC: BABAR KUMAR MD, SAMUEL S MD OLADELE, OPEYEMI M MD SALBINO, RANDOLPH NP ZHANG, RAY Y MD ORDERED: [facility] COMMENTS: 08/30/24 1721: NO SAMPLE IN LAB-LY NEEDS A NEW URINE SAMPLE -[id number] - Procedure Result - Urine Bacterial Culture Preliminary Report No growth after 36 hours incubation. The left percutaneous nephrostomy tube is draining very well. The right nephrostomy tube is less output and some hematuria noted. Minimal output from the Dixon catheter was observed. Cystoscopy was performed laboratory and microbiology Laboratory Tests 09/03/24 05:39 Test 09/03/24 05:39 Range/Units Serum Glucose 102 74-106 mg/dL Problem List Urinary retention Acute kidney injury on chronic kidney injury Large bladder mass=enlarged prostate gland Azotemia slowly improving Severely decompensated bladder Assessment/Plan PSA level elevated at 13.7- Prostate MRI ordered. Diagnostic cystoscopy shows massively enlarged prostate gland We will need to obtain a prostate volume to see if we can proceed with a prostatectomy (open versus TURP versus Aquablation) he will need antegrade placement of ureteral stents by Interventional Radiology Dietary Evaluation Review Recommendations by RD: Protein Supplementation Comments: 1) Initiate Nepro bid 2) Encourage optimal PO intake 3) Follow-up with urology, nephrology, and oncology 4) Continue to monitor I&O, labs, and skin integrity Expected Outcomes/Goals: 1) appetite and labs to improve 2) f/u in 3-5 days Plan discussed with: Patient LIAN GUTIERREZ MD Sep 04, 2024 10:18
--- NOTE | 2024-09-04 11:21 | DVH ---
PROCEDURE: Genitourinary catheter conversion Procedural Personnel Attending physician(s): Maycol Gallegos Fellow physician(s): None Resident physician(s): None Advanced practice provider(s): None Pre-procedure diagnosis: Renal failure Post-procedure diagnosis: Same Indication: Ureteral obstruction Additional clinical history: None Complications: No immediate complications. IMPRESSION: -Moderate distal ureteral stenoses, improved following mechanical ureteroplasty. -Successful bilateral percutaneous nephrostomy conversion for nephroureterostomy catheters (8 Fr x 26 cm) Plan: Routine exchange in 2-3 months. Flush drains with 10 cc normal saline daily to maintain patency. PROCEDURE SUMMARY - Target organ: Bilateral [place] kidneys - Antegrade nephrostogram(s) via the existing access - Conversion from nephrostomy tube to nephroureteral tube as described below - Additional procedure(s): None PROCEDURE DETAILS: Pre-procedure Consent: Informed consent for the procedure including risks, benefits and alternatives was obtained a nd time-out was performed prior to the procedure. Preparation: The site was prepared and draped using maximal sterile barrier technique including cutan eous antisepsis. Anesthesia/sedation Level of anesthesia/sedation: Moderate sedation (conscious sedation) Anesthesia/sedation administered by: Independent trained observer under attending supervision with co ntinuous monitoring of the patient s level of consciousness and physiologic status Total intra-service sedation time (minutes): 60 Genitourinary catheter conversion Side:Left [place] Local anesthesia was administered. Initial nephrostogram was performed. A wire was placed through the existing tube and the tube was removed. The wire was navigated into the bladder. A nephroureteral tube was advanced over the wire and position was confirmed with contrast i njection. A drainage bag was attached. Pre-existing genitourinary catheter: 8.5 Swedish multipurpose drain Genitourinary catheter(s) placed: 8 [place] x 26 cm (ureteral length) Findings: Retention loops in the renal pelves and bladder, collectively External catheter securement: Non-absorbable suture Additional genitourinary system intervention Side: NA Genitourinary intervention: None Location of intervention: Not applicable Device used: Not applicable Description of intervention: Not applicable Post-intervention findings: Not applicable Contrast Contrast agent: Visipaque 320 Contrast volume (mL): 30 Radiation Dose Fluoroscopy time (minutes): 11.2 Reference air kerma (mGy): 35 Kerma area product (cGy-cm2): 352.90 Additional Details Additional description of procedure: None Registry event: V/3/f Device used: Not applicable Equipment details: None Specimens removed: None. A sample was not sent for analysis. Estimated blood loss (mL): Less than 10 Standardized report: [email or web address] Attestation Signer name: Maycol Gallegos I attest that I was present for the entire procedure. I reviewed the stored images and agree with the report as written.
--- NOTE | 2024-09-04 13:27 | DVHPN2 ---
Subjective Patient denies any symptoms at this time Reviewed: Care Plan, H&P, Labs, Medications Changes from previous H/P or p: No Changes General: Per HPI Objective Vitals Vital Signs Date Time Temp Pulse Resp B/P (MAP) Pulse Ox O2 Delivery O2 Flow Rate FiO2 09/04/24 11:20 71 13 103/72 (82) 97 09/04/24 10:50 97.5 97.5 09/04/24 08:00 Room Air* 0 21 Intake/Output Intake and Output 09/04/24 07:00 Intake Total 310 ml Output Total 1650 ml Balance -1340 ml Intake Oral 310 ml Output Urine Total 1650 ml # Voids 1 General Appearance: Alert, Oriented X3, Cooperative HEENT: Atraumatic, PERRLA Lungs: Clear to auscultation, Normal air movement Cardiovascular: Normal S1, Normal S2 Genitourinary: No Apparent Abnormalities (Garcia catheter), Hematuria Musculoskeletal: Normal sensory function, Normal motor function Neuro: Strength at 5/5 X4 ext, Cranial nerves 3-12 NL Skin: Dry, Intact Psych/Mental Status: Mental status NL, Mood NL Medications Current Medications Medications Dose Ordered Sig/Kandi Route Start Time Stop Time Status Last Admin Dose Admin Tamsulosin HCl 0.4 mg QPM PO 08/27/24 18:00 09/03/24 17:02 0.4 MG Acetaminophen/ Hydrocodone Bitart 1 tab Q4HP PRN PO 08/26/24 19:30 08/28/24 21:03 1 TAB Ondansetron HCl 4 mg Q4HP PRN IV 08/26/24 19:30 08/27/24 20:12 4 MG Acetaminophen 650 mg Q6HP PRN PO 08/26/24 19:30 Ferrous Sulfate 325 mg BIDWM PO 08/27/24 18:00 09/03/24 17:02 325 MG Baclofen 5 mg Q12HP PRN PO 08/28/24 14:15 09/01/24 21:53 5 MG Morphine Sulfate 1 mg Q3HP PRN IV 08/28/24 14:15 Lactated Ringer's 1,000 ml @ 60 mls/hr [id number] IV 09/02/24 13:45 09/03/24 03:13 60 MLS/HR Laboratory Results Laboratory Tests 09/03/24 05:39 Urinalysis Test 08/26/24 14:55 Urine Color Light-yellow (Yellow) Urine Clarity Clear (Clear) Urine pH 5.5 (5.0-9.0) Urine Specific [place] 1.009 (1.001-1.035) Urine Protein Negative (Negative) Urine Ketones Negative (Negative) Urine Blood Negative /uL (Negative) Urine Nitrite Negative (Negative) Urine Bilirubin Negative (Negative) Urine Urobilinogen Normal mg/dL (Negative) Urine Leukocyte Esterase Negative /uL (Negative) Urine RBC None seen /hpf (0 - 3) Urine Microscopic WBC 2 /HPF (0-3) Urine Squamous Epithelial Cells None seen /hpf (<5) Urine Bacteria None seen /hpf (None Seen) Urine Glucose Normal mg/dL (Normal) Microbiology Microbiology Date/Time Source Procedure Growth Status 08/30/24 18:30 Urine - Garcia Port Urine Culture - Final Complete Labs and/or images reviewed: Labs reviewed by me, Image(s) reviewed by me Assessment/Plan Assessment/Plan Impression: -acute kidney injury secondary to obstructive uropathy -obstructive uropathy secondary to prostatomegaly -elevated PSA, rule out prostate CA -normocytic anemia Plan: Events: No events overnight. Patient has had bilateral ear stent placement today. Adequate output from both tubes. Bowel prep for prostate MRI scheduled for tomorrow. Future plans for prostatectomy. Urology consultation: With the recommendations appreciated -nephrology consultation: Recommendations reviewed. -pain management -dietary consultation -repeat BMP in a.m. Total time spent with patient discussing and formulating plan of care: 35 minutes. This medical document was created using an electronic medical record system with [employer] system. Although this document has been carefully reviewed, there may still be some phonetic and typographical errors. These areas are purely typographical due to imperfections of the software programs, and do not reflect any compromise in the patient's medical care. Plan discussed with: Patient, Other (RN) My Orders Orders - CHRISTY BEAVER NP Procedure Category Date Status Time Ceftriaxone 1gm/50ml PHA 09/04/24 Logged D5w (Rocephin) 13:30 Basic Metabolic Panel LAB 09/05/24 Verified 04:00 Date of Service: Sep 04, 2024 Billing Provider: CHRISTY BEAVER NP Common Visit Codes: [id number] INP/OBS CARE(HIGH) CHRISTY BEAVER EDUCATION RN Sep 04, 2024 13:27
[2024-09-04] MEDS: MAGNESIUM CITRATE SOLUTION 300 ML BTL PO ONE (16:10)
[2024-09-04] MEDS: cefTRIAXone 1GM/50ML D5W 50 ML IV ONE (17:00)
[2024-09-05] VITALS (7 sets, daily range): BP systolic 90–134; BP diastolic 63–83; PULSE 84–97; RESP 17–19; TEMP 97.1–98.8; O2SAT 98–99
[2024-09-05 06:43] LABS: Chloride 103 mmol/L (98-107); Potassium 4.9 mmol/L (3.5-5.1); Sodium 139 mmol/L (136-145)
[2024-09-05 06:44] LABS: Anion Gap 10 (5-15); Calcium 10.1 mg/dL (8.7-10.4); Carbon Dioxide 26 mmol/L (20-31)
[2024-09-05 06:49] LABS: BUN/Creatinine Ratio 9.8 (10.0-20.0); Glucose 92 mg/dL (74-106)
[2024-09-05 06:56] LABS: Blood Urea Nitrogen 44 mg/dL (9-23)
--- NOTE | 2024-09-05 09:26 | DVHPN2 ---
Progress Note Date Seen: Sep 05, 2024 Medical Necessity Reason Pt with a Central, PICC or Fol: Yes The following are medically ne: Dixon Catheter Reason for dixon catheter: Bladder Retention/Obstruc, Strict I&O Subjective Patient reports: No new complaints Other Systems: Patient seen and examined by myself today in follow-up Objective vital signs Vital Sign Date Time Temp Pulse Resp B/P (MAP) Pulse Ox O2 Delivery O2 Flow Rate FiO2 09/05/24 05:00 98.2 96 18 90/65 (73) 98 98.2 09/04/24 20:00 Room Air* 0 21 Total Intake and Output 09/04/24 09/04/24 09/05/24 15:00 23:00 07:00 Intake Total 600 ml 1740 ml 600 ml Output Total 1370 ml Balance 600 ml 370 ml 600 ml medications Current Medications Medications Dose Ordered Sig/Kandi Route Start Time Stop Time Status Last Admin Dose Admin Tamsulosin HCl 0.4 mg QPM PO 08/27/24 18:00 09/04/24 17:57 0.4 MG Acetaminophen/ Hydrocodone Bitart 1 tab Q4HP PRN PO 08/26/24 19:30 08/28/24 21:03 1 TAB Ondansetron HCl 4 mg Q4HP PRN IV 08/26/24 19:30 08/27/24 20:12 4 MG Acetaminophen 650 mg Q6HP PRN PO 08/26/24 19:30 Ferrous Sulfate 325 mg BIDWM PO 08/27/24 18:00 09/04/24 17:57 325 MG Baclofen 5 mg Q12HP PRN PO 08/28/24 14:15 09/01/24 21:53 5 MG Morphine Sulfate 1 mg Q3HP PRN IV 08/28/24 14:15 Lactated Ringer's 1,000 ml @ 60 mls/hr [id number] IV 09/02/24 13:45 09/05/24 08:32 60 MLS/HR Examination: LUNGS:Normal, CVS:Normal, MSK:Normal laboratory and microbiology Laboratory Tests 09/05/24 06:07 09/03/24 05:39 Test 09/05/24 06:07 Range/Units Serum Glucose 92 74-106 mg/dL Microbiology Date/Time Source Procedure Growth Status 08/30/24 18:30 Urine - Dixon Port Urine Culture - Final Complete Problem List/Assessment/Plan Problem List/Assessment/Plan Acute kidney injury superimposed 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 Chronic kidney disease unknown baseline kidney function Anemia of chronic kidney disease Enlarged prostate High PSA Recommendations Kidney function slightly improving Increased urine output Dixon catheter Strict I&Os Renal diet Noted plan for TURP We will continue to follow up Plan discussed with: Patient Dietary Evaluation Review Recommendations by RD: Protein Supplementation Comments: 1) Initiate Nepro bid 2) Encourage optimal PO intake 3) Follow-up with urology, nephrology, and oncology 4) Continue to monitor I&O, labs, and skin integrity Expected Outcomes/Goals: 1) appetite and labs to improve 2) f/u in 3-5 days GAMALIEL JENNINGS MD Sep 05, 2024 09:26
[2024-09-05] MEDS: FLEET ENEMA(ADULT) 135 ML PR ONE (09:37)
--- NOTE | 2024-09-05 12:47 | DVH ---
EXAM: XR Abdomen, 1 View CLINICAL INDICATION: view of urethral stents. TECHNIQUE: Frontal supine view of the abdomen/pelvis. COMPARISON: None FINDINGS: GASTROINTESTINAL TRACT: Unremarkable. No dilation. ORGANS: Bilateral external internal ureteral stents. No obvious renal calculi. BONES/JOINTS: Unremarkable. No acute fracture. OTHER FINDINGS: . . IMPRESSION: Bilateral external internal ureteral stents. No obvious renal calculi.
--- NOTE | 2024-09-05 19:33 | DVH ---
Exam: MRI PROSTATE MRI CLINICAL HISTORY: Evaluate prostate TECHNIQUE: Multiplanar multisequence MRI images were obtained of the pelvis and prostate gland utiliz [facility] prostate multiparametric protocol. COMPARISON: None FINDINGS: Prostate size and volume: 7.4 x 6.3 x 7.5 cm ; 174.82 cc Length of membranous urethra: 1.4 cm Post-biopsy change: None Central Gland: Findings of benign prostatic hypertrophy noted in the central gland. Peripheral Gland: There are no focal T2 abnormalities in the peripheral zone. No focal areas of rest ricted diffusion abnormality noted. No enhancement abnormalities identified. Areas within the prostate of at least moderate suspicion include: None Overall level of suspicion: PI-RADS 3 ( 1= Benign, 5= Highly suspicious for malignancy) Seminal Vesicles: 0- No definite seminal vesicle involvement. Lymph nodes: No evidence of pelvic lymphadenopathy Bladder: Garcia catheter in the urinary bladder. Pelvic Bones: No suspicious lesions in the pelvis. IMPRESSION: Extremely limited examination secondary to artifact related to Garcia catheter. Changes of benign prostatic hyperplasia. Gland measures 175 cc. Recommend repeat complete outpatient multi parametric prostate MRI finding nonemergent basis. PI-RADS 3 = Indeterminate (the presence of clinically significant cancer is equivocal)
[2024-09-06] VITALS (8 sets, daily range): BP systolic 98–139; BP diastolic 57–67; PULSE 76–91; RESP 16–18; TEMP 97.7–98.3; O2SAT 95–100
--- NOTE | 2024-09-06 10:37 | DVHPN2 ---
Progress Note Date Seen: Sep 06, 2024 Medical Necessity Reason Pt with a Central, PICC or Fol: Yes The following are medically ne: Dixon Catheter Reason for dixon catheter: Bladder Retention/Obstruc, Strict I&O Subjective Patient reports: No new complaints Other Systems: Patient seen and examined by myself today in follow-up Objective vital signs Vital Sign Date Time Temp Pulse Resp B/P (MAP) Pulse Ox O2 Delivery O2 Flow Rate FiO2 09/06/24 05:02 97.9 91 16 100/62 (75) 95 97.9 09/05/24 20:00 Room Air* 0 21 Total Intake and Output 09/05/24 09/05/24 09/06/24 15:00 23:00 07:00 Intake Total 860 ml 100 ml Output Total 950 ml 50 ml Balance -90 ml 50 ml medications Current Medications Medications Dose Ordered Sig/Kandi Route Start Time Stop Time Status Last Admin Dose Admin Tamsulosin HCl 0.4 mg QPM PO 08/27/24 18:00 09/05/24 18:22 0.4 MG Acetaminophen/ Hydrocodone Bitart 1 tab Q4HP PRN PO 08/26/24 19:30 08/28/24 21:03 1 TAB Ondansetron HCl 4 mg Q4HP PRN IV 08/26/24 19:30 08/27/24 20:12 4 MG Acetaminophen 650 mg Q6HP PRN PO 08/26/24 19:30 Ferrous Sulfate 325 mg BIDWM PO 08/27/24 18:00 09/06/24 10:21 325 MG Baclofen 5 mg Q12HP PRN PO 08/28/24 14:15 09/01/24 21:53 5 MG Morphine Sulfate 1 mg Q3HP PRN IV 08/28/24 14:15 Lactated Ringer's 1,000 ml @ 60 mls/hr [id number] IV 09/02/24 13:45 09/05/24 08:32 60 MLS/HR Examination: LUNGS:Normal, CVS:Normal, MSK:Normal laboratory and microbiology Laboratory Tests 09/05/24 06:07 09/03/24 05:39 Test 09/05/24 06:07 Range/Units Serum Glucose 92 74-106 mg/dL Microbiology Date/Time Source Procedure Growth Status 08/30/24 18:30 Urine - Dixon Port Urine Culture - Final Complete Problem List/Assessment/Plan Problem List/Assessment/Plan Acute kidney injury superimposed 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 Chronic kidney disease unknown baseline kidney function Anemia of chronic kidney disease Enlarged prostate High PSA Recommendations Kidney function slightly improving Increased urine output Dixon catheter Strict I&Os Renal diet Noted plan for TURP We will continue to follow up Plan discussed with: Patient Dietary Evaluation Review Recommendations by RD: Protein Supplementation Comments: 1) Initiate Nepro bid 2) Encourage optimal PO intake 3) Follow-up with urology, nephrology, and oncology 4) Continue to monitor I&O, labs, and skin integrity Expected Outcomes/Goals: 1) appetite and labs to improve 2) f/u in 3-5 days GAMALIEL JENNINGS MD Sep 06, 2024 10:37
--- NOTE | 2024-09-06 13:21 | DVHPN2 ---
Subjective Patient denies any symptoms at this time Reviewed: Care Plan, H&P, Labs, Medications Changes from previous H/P or p: No Changes General: Per HPI Objective Vitals Vital Signs Date Time Temp Pulse Resp B/P (MAP) Pulse Ox O2 Delivery O2 Flow Rate FiO2 09/06/24 09:00 97.8 77 18 101/67 (78) 100 97.8 09/06/24 08:00 Room Air* 0 21 Intake/Output Intake and Output 09/06/24 07:00 Intake Total 960 ml Output Total 1000 ml Balance -40 ml Intake Oral 960 ml Output Urine Total 1000 ml # Bowel Movements 1 General Appearance: Alert, Oriented X3, Cooperative HEENT: Atraumatic, PERRLA Lungs: Clear to auscultation, Normal air movement Cardiovascular: Normal S1, Normal S2 Genitourinary: No Apparent Abnormalities (Garcia catheter), Hematuria Musculoskeletal: Normal sensory function, Normal motor function Neuro: Strength at 5/5 X4 ext, Cranial nerves 3-12 NL Skin: Dry, Intact Psych/Mental Status: Mental status NL, Mood NL Medications Current Medications Medications Dose Ordered Sig/Kandi Route Start Time Stop Time Status Last Admin Dose Admin Tamsulosin HCl 0.4 mg QPM PO 08/27/24 18:00 09/05/24 18:22 0.4 MG Acetaminophen/ Hydrocodone Bitart 1 tab Q4HP PRN PO 08/26/24 19:30 08/28/24 21:03 1 TAB Ondansetron HCl 4 mg Q4HP PRN IV 08/26/24 19:30 08/27/24 20:12 4 MG Acetaminophen 650 mg Q6HP PRN PO 08/26/24 19:30 Ferrous Sulfate 325 mg BIDWM PO 08/27/24 18:00 09/06/24 10:21 325 MG Baclofen 5 mg Q12HP PRN PO 08/28/24 14:15 09/01/24 21:53 5 MG Morphine Sulfate 1 mg Q3HP PRN IV 08/28/24 14:15 Lactated Ringer's 1,000 ml @ 60 mls/hr [id number] IV 09/02/24 13:45 09/05/24 08:32 60 MLS/HR Laboratory Results Laboratory Tests 09/03/24 05:39 09/05/24 06:07 Urinalysis Test 08/26/24 14:55 Urine Color Light-yellow (Yellow) Urine Clarity Clear (Clear) Urine pH 5.5 (5.0-9.0) Urine Specific [place] 1.009 (1.001-1.035) Urine Protein Negative (Negative) Urine Ketones Negative (Negative) Urine Blood Negative /uL (Negative) Urine Nitrite Negative (Negative) Urine Bilirubin Negative (Negative) Urine Urobilinogen Normal mg/dL (Negative) Urine Leukocyte Esterase Negative /uL (Negative) Urine RBC None seen /hpf (0 - 3) Urine Microscopic WBC 2 /HPF (0-3) Urine Squamous Epithelial Cells None seen /hpf (<5) Urine Bacteria None seen /hpf (None Seen) Urine Glucose Normal mg/dL (Normal) Microbiology Microbiology Date/Time Source Procedure Growth Status 08/30/24 18:30 Urine - Garcia Port Urine Culture - Final Complete Labs and/or images reviewed: Labs reviewed by me, Image(s) reviewed by me Assessment/Plan Assessment/Plan Impression: -acute kidney injury secondary to obstructive uropathy -obstructive uropathy secondary to prostatomegaly -elevated PSA, rule out prostate CA -normocytic anemia Plan: Events: No events overnight. MRI of prostate performed. Plans for prostatectomy Urology consultation: With the recommendations appreciated -nephrology consultation: Recommendations reviewed. -pain management -dietary consultation -repeat BMP in a.m. Total time spent with patient discussing and formulating plan of care: 35 minutes. This medical document was created using an electronic medical record system with [email or web address] dictation system. Although this document has been carefully reviewed, there may still be some phonetic and typographical errors. These areas are purely typographical due to imperfections of the software programs, and do not reflect any compromise in the patient's medical care. Plan discussed with: Patient, Other (RN) Date of Service: Sep 06, 2024 Billing Provider: CHRISTY BEAVER NP Common Visit Codes: [id number] INP/OBS CARE(HIGH) CHRISTY BEAVER NP Sep 06, 2024 13:21
--- NOTE | 2024-09-06 22:32 | DVHPN2 ---
Progress Note - Dictate Date Seen: Sep 06, 2024 Medical Necessity Reason Pt with a Central, PICC or Fol: Yes The following are medically ne: Dixon Catheter Reason for dixon catheter: Bladder Retention/Obstruc, Strict I&O Medical Necessity Reason Urinary retention Bilateral hydronephrosis Azotemia BPH vital signs Vital Sign Date Time Temp Pulse Resp B/P (MAP) Pulse Ox O2 Delivery O2 Flow Rate FiO2 09/06/24 21:00 97.7 87 18 139/67 (91) 99 97.7 09/06/24 08:00 Room Air* 0 21 Total Intake and Output 09/05/24 09/05/24 09/06/24 15:00 23:00 07:00 Intake Total 860 ml 100 ml Output Total 950 ml 50 ml Balance -90 ml 50 ml medications Current Medications Medications Dose Ordered Sig/Kandi Route Start Time Stop Time Status Last Admin Dose Admin Tamsulosin HCl 0.4 mg QPM PO 08/27/24 18:00 09/06/24 18:21 0.4 MG Acetaminophen/ Hydrocodone Bitart 1 tab Q4HP PRN PO 08/26/24 19:30 08/28/24 21:03 1 TAB Ondansetron HCl 4 mg Q4HP PRN IV 08/26/24 19:30 08/27/24 20:12 4 MG Acetaminophen 650 mg Q6HP PRN PO 08/26/24 19:30 Ferrous Sulfate 325 mg BIDWM PO 08/27/24 18:00 09/06/24 18:21 325 MG Baclofen 5 mg Q12HP PRN PO 08/28/24 14:15 09/01/24 21:53 5 MG Morphine Sulfate 1 mg Q3HP PRN IV 08/28/24 14:15 Lactated Ringer's 1,000 ml @ 60 mls/hr [id number] IV 09/02/24 13:45 09/06/24 18:21 60 MLS/HR objective PATIENT: MAHESH BARRAZA ACCT: [id number] UNIT: [id number] : 1960 LOC: [facility] ROOM / BED: 0244ADS / 6 AGE / SEX: 64 / M ADM STATUS: ADM IN SERVICE 0949 ORDERING PHYSICIAN: LIAN GUTIERREZ MD PROCEDURE(s): MRPRS - PROSTATE MRI REASON: ORDER NUMBER(s): [id number], ACCESSION NUMBER(s): [id number] Exam: MRI PROSTATE MRI CLINICAL HISTORY: Evaluate prostate TECHNIQUE: Multiplanar multisequence MRI images were obtained of the pelvis and prostate gland utilizing prostate multiparametric protocol. COMPARISON: None FINDINGS: Prostate size and volume: 7.4 x 6.3 x 7.5 cm ; 174.82 cc Length of membranous urethra: 1.4 cm Post-biopsy change: None Central Gland: Findings of benign prostatic hypertrophy noted in the central gland. Peripheral Gland: There are no focal T2 abnormalities in the peripheral zone. No focal areas of restricted diffusion abnormality noted. No enhancement abnormalities identified. Areas within the prostate of at least moderate suspicion include: None Overall level of suspicion: PI-RADS 3 ( 1= Benign, 5= Highly suspicious for malignancy) Seminal Vesicles: 0- No definite seminal vesicle involvement. Lymph nodes: No evidence of pelvic lymphadenopathy Bladder: Dixon catheter in the urinary bladder. Pelvic Bones: No suspicious lesions in the pelvis. IMPRESSION: Extremely limited examination secondary to artifact related to Dixon catheter. Changes of benign prostatic hyperplasia. Gland measures 175 cc. Recommend repeat complete outpatient multi parametric prostate MRI finding nonemergent basis. PI-RADS 3 = Indeterminate (the presence of clinically significant cancer is equivocal) ATED BY: JAMES MCGEE MD DICTATED DATE/TIME: 09/05/241929 SIGNED BY: JAMES MCGEE MD SIGNED DATE/TIME: 09/05/241929 CC: laboratory and microbiology Laboratory Tests 09/05/24 06:07 09/03/24 05:39 Test 09/05/24 06:07 Range/Units Serum Glucose 92 74-106 mg/dL Problem List Urinary retention Acute kidney injury on chronic kidney injury Large bladder mass=enlarged prostate gland Azotemia slowly improving Severely decompensated bladder Assessment/Plan PSA level elevated at 13.7- Prostate MRI shows BPH and PIRAD 3 results. Diagnostic cystoscopy shows massively enlarged prostate gland s/p antegrade placement of ureteral stents by Interventional Radiology TURP TBA Dietary Evaluation Review Recommendations by RD: Protein Supplementation Comments: 1) Initiate Nepro bid 2) Encourage optimal PO intake 3) Follow-up with urology, nephrology, and oncology 4) Continue to monitor I&O, labs, and skin integrity Expected Outcomes/Goals: 1) appetite and labs to improve 2) f/u in 3-5 days Plan discussed with: Patient, Other LIAN GUTIERREZ MD Sep 06, 2024 22:32
[2024-09-07] VITALS (9 sets, daily range): BP systolic 89–135; BP diastolic 54–65; PULSE 82–92; RESP 16–19; TEMP 97.3–98.7; O2SAT 93–99
--- NOTE | 2024-09-07 10:14 | DVHPN2 ---
Progress Note Date Seen: Sep 07, 2024 Medical Necessity Reason Pt with a Central, PICC or Fol: Yes The following are medically ne: Dixon Catheter Reason for dixon catheter: Bladder Retention/Obstruc, Strict I&O Subjective Patient reports: No new complaints Review of Systems: :Abnormal Other Systems: Patient seen and examined by myself today in follow-up Objective vital signs Vital Sign Date Time Temp Pulse Resp B/P (MAP) Pulse Ox O2 Delivery O2 Flow Rate FiO2 09/07/24 09:00 97.3 85 18 92/64 (73) 97 97.3 09/06/24 20:00 Room Air* 0 21 Total Intake and Output 09/06/24 09/06/24 09/07/24 15:00 23:00 07:00 Intake Total 500 ml 760 ml Output Total 50 ml 75 ml Balance 450 ml 685 ml medications Current Medications Medications Dose Ordered Sig/Kandi Route Start Time Stop Time Status Last Admin Dose Admin Tamsulosin HCl 0.4 mg QPM PO 08/27/24 18:00 09/06/24 18:21 0.4 MG Acetaminophen/ Hydrocodone Bitart 1 tab Q4HP PRN PO 08/26/24 19:30 08/28/24 21:03 1 TAB Ondansetron HCl 4 mg Q4HP PRN IV 08/26/24 19:30 08/27/24 20:12 4 MG Acetaminophen 650 mg Q6HP PRN PO 08/26/24 19:30 Ferrous Sulfate 325 mg BIDWM PO 08/27/24 18:00 09/06/24 18:21 325 MG Baclofen 5 mg Q12HP PRN PO 08/28/24 14:15 09/01/24 21:53 5 MG Morphine Sulfate 1 mg Q3HP PRN IV 08/28/24 14:15 Lactated Ringer's 1,000 ml @ 60 mls/hr [id number] IV 09/02/24 13:45 09/06/24 18:21 60 MLS/HR Examination: LUNGS:Normal, CVS:Normal, MSK:Normal laboratory and microbiology Laboratory Tests 09/05/24 06:07 09/03/24 05:39 Test 09/05/24 06:07 Range/Units Serum Glucose 92 74-106 mg/dL Microbiology Date/Time Source Procedure Growth Status 08/30/24 18:30 Urine - Dixon Port Urine Culture - Final Complete Problem List/Assessment/Plan Problem List/Assessment/Plan Acute kidney injury superimposed 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 Chronic kidney disease unknown baseline kidney function Anemia of chronic kidney disease Enlarged prostate Status post cystoscopy 09/03 High PSA Recommendations Kidney function slightly improving Increased urine output Dixon catheter Strict I&Os Renal diet Noted plan for TURP We will continue to follow up Plan discussed with: Patient Dietary Evaluation Review Recommendations by RD: Protein Supplementation Comments: 1) Initiate Nepro bid 2) Encourage optimal PO intake 3) Follow-up with urology, nephrology, and oncology 4) Continue to monitor I&O, labs, and skin integrity Expected Outcomes/Goals: 1) appetite and labs to improve 2) f/u in 3-5 days GAMALIEL JENNINGS MD Sep 07, 2024 10:14
--- NOTE | 2024-09-07 12:52 | DVHPN2 ---
Subjective Patient denies any symptoms at this time Reviewed: Care Plan, H&P, Labs, Medications Changes from previous H/P or p: No Changes General: Per HPI Objective Vitals Vital Signs Date Time Temp Pulse Resp B/P (MAP) Pulse Ox O2 Delivery O2 Flow Rate FiO2 09/07/24 09:00 97.3 85 18 92/64 (73) 97 97.3 09/06/24 20:00 Room Air* 0 21 Intake/Output Intake and Output 09/07/24 07:00 Intake Total 1260 ml Output Total 125 ml Balance 1135 ml Intake Oral 1260 ml Output Urine Total 125 ml General Appearance: Alert, Oriented X3, Cooperative HEENT: Atraumatic, PERRLA Lungs: Clear to auscultation, Normal air movement Cardiovascular: Normal S1, Normal S2 Genitourinary: No Apparent Abnormalities (Garcia catheter), Hematuria Musculoskeletal: Normal sensory function, Normal motor function Neuro: Strength at 5/5 X4 ext, Cranial nerves 3-12 NL Skin: Dry, Intact Psych/Mental Status: Mental status NL, Mood NL Medications Current Medications Medications Dose Ordered Sig/Kandi Route Start Time Stop Time Status Last Admin Dose Admin Tamsulosin HCl 0.4 mg QPM PO 08/27/24 18:00 09/06/24 18:21 0.4 MG Acetaminophen/ Hydrocodone Bitart 1 tab Q4HP PRN PO 08/26/24 19:30 08/28/24 21:03 1 TAB Ondansetron HCl 4 mg Q4HP PRN IV 08/26/24 19:30 08/27/24 20:12 4 MG Acetaminophen 650 mg Q6HP PRN PO 08/26/24 19:30 Ferrous Sulfate 325 mg BIDWM PO 08/27/24 18:00 09/07/24 10:22 325 MG Baclofen 5 mg Q12HP PRN PO 08/28/24 14:15 09/01/24 21:53 5 MG Morphine Sulfate 1 mg Q3HP PRN IV 08/28/24 14:15 Lactated Ringer's 1,000 ml @ 60 mls/hr [id number] IV 09/02/24 13:45 09/07/24 10:28 60 MLS/HR Laboratory Results Laboratory Tests 09/03/24 05:39 09/05/24 06:07 Urinalysis Test 08/26/24 14:55 Urine Color Light-yellow (Yellow) Urine Clarity Clear (Clear) Urine pH 5.5 (5.0-9.0) Urine Specific [place] 1.009 (1.001-1.035) Urine Protein Negative (Negative) Urine Ketones Negative (Negative) Urine Blood Negative /uL (Negative) Urine Nitrite Negative (Negative) Urine Bilirubin Negative (Negative) Urine Urobilinogen Normal mg/dL (Negative) Urine Leukocyte Esterase Negative /uL (Negative) Urine RBC None seen /hpf (0 - 3) Urine Microscopic WBC 2 /HPF (0-3) Urine Squamous Epithelial Cells None seen /hpf (<5) Urine Bacteria None seen /hpf (None Seen) Urine Glucose Normal mg/dL (Normal) Microbiology Microbiology Date/Time Source Procedure Growth Status 08/30/24 18:30 Urine - Garcia Port Urine Culture - Final Complete Labs and/or images reviewed: Labs reviewed by me, Image(s) reviewed by me Assessment/Plan Assessment/Plan Impression: -acute kidney injury secondary to obstructive uropathy -obstructive uropathy secondary to prostatomegaly -elevated PSA, rule out prostate CA -normocytic anemia Plan: Events: No events overnight. ESBL vs open prostatectomy tomorrow. Urology consultation: With the recommendations appreciated -nephrology consultation: Recommendations reviewed. -pain management -PUD/DVT prophylaxis -repeat BMP in a.m. Total time spent with patient discussing and formulating plan of care: 35 minutes. This medical document was created using an electronic medical record system with [employer] dictation system. Although this document has been carefully reviewed, there may still be some phonetic and typographical errors. These areas are purely typographical due to imperfections of the software programs, and do not reflect any compromise in the patient's medical care. Plan discussed with: Patient, Other (Rn) My Orders Orders - CHRISTY BEAVER NP Procedure Category Date Status Time Basic Metabolic Panel LAB 09/08/24 Verified 04:00 PTPTT LAB 09/08/24 Verified 04:00 Complete Blood Count LAB 09/08/24 Verified 04:00 Date of Service: Sep 07, 2024 Billing Provider: CHRISTY BEAVER NP Common Visit Codes: [id number] INP/OBS CARE(HIGH) CHRISTY BEAVER NP Sep 07, 2024 12:52
[2024-09-08] VITALS (8 sets, daily range): BP systolic 93–124; BP diastolic 52–68; PULSE 81–90; RESP 16–18; TEMP 97.8–98.6; O2SAT 96–99
[2024-09-08 06:00] LABS: Anion Gap 8 (5-15); Carbon Dioxide 26 mmol/L (20-31); Chloride 105 mmol/L (98-107); Potassium 4.6 mmol/L (3.5-5.1); Sodium 139 mmol/L (136-145)
[2024-09-08 06:06] LABS: BUN/Creatinine Ratio 11.1 (10.0-20.0); Basophils # (auto) 0.1 10 ^3/uL (0-0.2); Basophils % (auto) 1.6 % (0.0-2.0); Eosinophils # (auto) 0.3 10 ^3/uL (0-0.8); Eosinophils % (auto) 6.5 % (0.0-7.0); Glucose 90 mg/dL (74-106); Hematocrit 25.6 % (41.0-53.0); Hemoglobin 8.8 g/dL (13.5-17.5); Lymphocytes # (auto) 1.3 10 ^3/uL (0.4-5.4); Lymphocytes % (auto) 25.5 % (10.0-50.0); Mean Corpuscular Hemoglobin 32.4 pg (28.0-32.0); Mean Corpuscular Hgb Conc. 34.3 g/dL (32.0-36.0); Mean Corpuscular Volume 94.4 fL (80.0-100.0); Monocytes # (auto) 0.7 10 ^3/uL (0-1.3); Monocytes % (auto) 13.6 % (0.0-12.0); Neutrophils # (auto) 2.8 10 ^3/uL (1.6-8.6); Neutrophils % (auto) 52.8 % (37.0-80.0); Platelet Count (auto) 323 10^3/uL (140-450); Red Blood Cells 2.72 10^6/uL (4.5-5.90); Red Cell Distribution Width 13.2 % (11.8-14.3); White Blood Cell 5.3 10^3/uL (4.4-10.8)
[2024-09-08 06:12] LABS: INR 0.97 (0.9-1.15); Partial Thromboplastin Time 25.9 SEC (24.5-34.5); Prothrombin Time 10.3 sec (9.3-11.8)
[2024-09-08 06:26] LABS: Blood Urea Nitrogen 48 mg/dL (9-23); Calcium 8.6 mg/dL (8.7-10.4)
[2024-09-08] MEDS ORDERED: MIDAZOLAM HCL 2MG/2ML 2ml VIAL (1mg/ml) ONE (09:34)
[2024-09-08] MEDS ORDERED: fentaNYL CITRATE 100 MCG/2 ML VL ONE (09:34)
[2024-09-08] MEDS: CIPROFLOXACIN 400MG/200ML 200 ML IV ONE (09:35)
[2024-09-08] MEDS ORDERED: ETOMIDATE (2MG/ML) 20ML VIAL IV ONE (09:50)
[2024-09-08] MEDS ORDERED: DexAMETHasone SOD PHOS 10MG/1ML VIAL INJ ONE (09:50)
[2024-09-08] MEDS: PANTOPRAZOLE 40 MG/10 ML VIAL INJ IV SCH (10:00)
[2024-09-08] MEDS ORDERED: hydrALAZINE HCL 20 MG/ML VL IV PRN (10:00)
[2024-09-08] MEDS ORDERED: HYDROmorphone HCL 2 MG/ML VL/or syr IV PRN (10:00)
[2024-09-08] MEDS ORDERED: MIDAZOLAM HCL 2MG/2ML 2ml VIAL (1mg/ml) IV PRN (10:00)
[2024-09-08] MEDS ORDERED: fentaNYL CITRATE 100 MCG/2 ML VL IV PRN (10:00)
[2024-09-08] MEDS ORDERED: ePHEDrine SULFATE 50 MG/ML AMP IV PRN (10:00)
--- NOTE | 2024-09-08 10:59 | DVHPN2 ---
Progress Note Date Seen: Sep 08, 2024 Medical Necessity Reason Pt with a Central, PICC or Fol: Yes The following are medically ne: Dixon Catheter Reason for dixon catheter: Bladder Retention/Obstruc, Strict I&O Subjective Patient reports: No new complaints Other Systems: Patient seen and examined by myself today in follow-up Objective vital signs Vital Sign Date Time Temp Pulse Resp B/P (MAP) Pulse Ox O2 Delivery O2 Flow Rate FiO2 09/08/24 09:00 98.4 84 17 102/60 (74) 99 98.4 09/07/24 20:00 Room Air* 0 21 Total Intake and Output 09/07/24 09/07/24 09/08/24 14:59 22:59 06:59 Intake Total 150 ml 520 ml Output Total 425 ml 650 ml Balance -275 ml -130 ml medications Current Medications Medications Dose Ordered Sig/Kandi Route Start Time Stop Time Status Last Admin Dose Admin Tamsulosin HCl 0.4 mg QPM PO 08/27/24 18:00 09/07/24 17:46 0.4 MG Acetaminophen/ Hydrocodone Bitart 1 tab Q4HP PRN PO 08/26/24 19:30 08/28/24 21:03 1 TAB Ondansetron HCl 4 mg Q4HP PRN IV 08/26/24 19:30 08/27/24 20:12 4 MG Acetaminophen 650 mg Q6HP PRN PO 08/26/24 19:30 Ferrous Sulfate 325 mg BIDWM PO 08/27/24 18:00 09/07/24 17:46 325 MG Baclofen 5 mg Q12HP PRN PO 08/28/24 14:15 09/01/24 21:53 5 MG Morphine Sulfate 1 mg Q3HP PRN IV 08/28/24 14:15 Lactated Ringer's 1,000 ml @ 60 mls/hr [id number] IV 09/02/24 13:45 09/08/24 03:24 60 MLS/HR Pantoprazole Sodium 40 mg DAILY IV 09/08/24 10:00 Examination: LUNGS:Normal, CVS:Normal, MSK:Normal laboratory and microbiology Laboratory Tests 09/08/24 05:27 Test 09/08/24 05:27 Range/Units Serum Glucose 90 74-106 mg/dL Microbiology Date/Time Source Procedure Growth Status 08/30/24 18:30 Urine - Dixon Port Urine Culture - Final Complete Problem List/Assessment/Plan Problem List/Assessment/Plan Acute kidney injury superimposed Chronic Kidney Disease stage IV secondary bladder outlet obstruction Anemia of chronic kidney disease Enlarged prostate Status post cystoscopy 09/03 High PSA Recommendations Kidney function slightly improving Increased urine output Dixon catheter Strict I&Os Renal diet IV Venofer Epogen [id number] subQ twice weekly Noted plan for TURP We will continue to follow up Plan discussed with: Patient Dietary Evaluation Review Recommendations by RD: Protein Supplementation Comments: 1) Initiate Nepro bid 2) Encourage optimal PO intake 3) Follow-up with urology, nephrology, and oncology 4) Continue to monitor I&O, labs, and skin integrity Expected Outcomes/Goals: 1) appetite and labs to improve 2) f/u in 3-5 days GAMALIEL JENNINGS MD Sep 08, 2024 10:59
--- NOTE | 2024-09-08 11:37 | DVHNC2 ---
Procedure - OPERATIVE REPORT Pre-op. Diagnosis: BPH LUTs/WEI Post-op. Diagnosis: Same as pre-op diagnosis Operation: Transurethral resection/vaporization of prostate gland (BUTTON) Anesthesia: General Indications: Patient has symptomatic BPH (175 grams) with LUTs/Urinary retention and renal failure. He has bilateral nephroureteral stents. The indications, risks, complications, alternatives and benefits of transurethral vaporization/resection of prostate gland are discussed with patient. All questions were encouraged and answered. He is aware of specific risk/complications including but not limited to infection, bleeding, urinary incontinence, impotence, retrograde ejaculation, recurrent scar formation (strictures) and possible need for additional therapy(-ies). He is also aware of the alternative of this procedure including conservative management, medical therapy, minimally invasive procedures such as TUNA, TUMT, Urolift, and other forms of prostatectomy such as laser enucleation and open simple prostatectomy. Patient is competent and understands the discussion. He elected to proceed. Details of Procedure: Button TURP: After administration of anesthesia in the lithotomy position, area of genitalia was prepped and draped in usual sterile fashion. The 26F resectoscope sheath is introduced into the bladder under direct vision. Using the Olympus bipolar Button resecting element and NS irrigation, prostate gland was electrodesiccated in systematic fashion using the standard cautery settings from the bladder neck to verumontanum, taking care not to injure the external sphincter. The ureteric orifices are noted and avoided of any thermal injury. [address] Garcia catheter is placed for postoperative irrigation and drainage of bladder. Patient tolerated the procedure well. He was awaken and taken to RR in stable condition. All instrument counts were correct at the end of the procedure. Specimens: The prostatic tissue specimens are sent to pathology for evaluation. Complications: None Findings: EBL: < 100ml LIAN GUTIERREZ MD Sep 08, 2024 11:37
--- NOTE | 2024-09-08 12:48 | DVHPN2 ---
Subjective Patient denies any symptoms at this time Reviewed: Care Plan, H&P, Labs, Medications Changes from previous H/P or p: No Changes General: Per HPI Objective Vitals Vital Signs Date Time Temp Pulse Resp B/P (MAP) Pulse Ox O2 Delivery O2 Flow Rate FiO2 09/08/24 11:45 99 Mask 10.0 09/08/24 11:45 99 09/08/24 09:00 98.4 84 17 102/60 (74) 98.4 Intake/Output Intake and Output 09/08/24 07:00 Intake Total 670 ml Output Total 1075 ml Balance -405 ml Intake Oral 670 ml Output Urine Total 1075 ml General Appearance: Alert, Oriented X3, Cooperative HEENT: Atraumatic, PERRLA Lungs: Clear to auscultation, Normal air movement Cardiovascular: Normal S1, Normal S2 Genitourinary: No Apparent Abnormalities (Garcia catheter), Hematuria Musculoskeletal: Normal sensory function, Normal motor function Neuro: Strength at 5/5 X4 ext, Cranial nerves 3-12 NL Skin: Dry, Intact Psych/Mental Status: Mental status NL, Mood NL Medications Current Medications Medications Dose Ordered Sig/Kandi Route Start Time Stop Time Status Last Admin Dose Admin Tamsulosin HCl 0.4 mg QPM PO 08/27/24 18:00 09/07/24 17:46 0.4 MG Acetaminophen/ Hydrocodone Bitart 1 tab Q4HP PRN PO 08/26/24 19:30 08/28/24 21:03 1 TAB Ondansetron HCl 4 mg Q4HP PRN IV 08/26/24 19:30 08/27/24 20:12 4 MG Acetaminophen 650 mg Q6HP PRN PO 08/26/24 19:30 Ferrous Sulfate 325 mg BIDWM PO 08/27/24 18:00 09/07/24 17:46 325 MG Baclofen 5 mg Q12HP PRN PO 08/28/24 14:15 09/01/24 21:53 5 MG Morphine Sulfate 1 mg Q3HP PRN IV 08/28/24 14:15 Lactated Ringer's 1,000 ml @ 60 mls/hr [id number] IV 09/02/24 13:45 09/08/24 03:24 60 MLS/HR Pantoprazole Sodium 40 mg DAILY IV 09/08/24 10:00 Iron Sucrose 110 ml @ 110 mls/hr DAILY@1200 IV 09/08/24 12:00 09/12/24 12:59 Epoetin Rashad-epbx 10,000 unit 2XW SC 09/08/24 12:00 Laboratory Results Laboratory Tests 09/08/24 05:27 Chemistry Test 09/08/24 05:27 Calcium Level 8.6 mg/dL (8.7-10.4) L Coagulation Test 09/08/24 05:27 Prothrombin Time 10.3 sec (9.3-11.8) Prothrombin Time INR 0.97 (0.9-1.15) Activated Partial Thromboplast Time 25.9 SEC (24.5-34.5) Urinalysis Test 08/26/24 14:55 Urine Color Light-yellow (Yellow) Urine Clarity Clear (Clear) Urine pH 5.5 (5.0-9.0) Urine Specific [place] 1.009 (1.001-1.035) Urine Protein Negative (Negative) Urine Ketones Negative (Negative) Urine Blood Negative /uL (Negative) Urine Nitrite Negative (Negative) Urine Bilirubin Negative (Negative) Urine Urobilinogen Normal mg/dL (Negative) Urine Leukocyte Esterase Negative /uL (Negative) Urine RBC None seen /hpf (0 - 3) Urine Microscopic WBC 2 /HPF (0-3) Urine Squamous Epithelial Cells None seen /hpf (<5) Urine Bacteria None seen /hpf (None Seen) Urine Glucose Normal mg/dL (Normal) Microbiology Microbiology Date/Time Source Procedure Growth Status 08/30/24 18:30 Urine - [place] Urine Culture - Final Complete Labs and/or images reviewed: Labs reviewed by me, Image(s) reviewed by me Assessment/Plan Assessment/Plan Impression: -acute kidney injury secondary to obstructive uropathy -obstructive uropathy secondary to prostatomegaly -elevated PSA, rule out prostate CA -normocytic anemia Plan: Events: No events overnight. TURP today. Urology consultation: With the recommendations appreciated -nephrology consultation: Recommendations reviewed. -pain management -PUD/DVT prophylaxis -repeat BMP in a.m. Total time spent with patient discussing and formulating plan of care: 35 minutes. This medical document was created using an electronic medical record system with [employer] system. Although this document has been carefully reviewed, there may still be some phonetic and typographical errors. These areas are purely typographical due to imperfections of the software programs, and do not reflect any compromise in the patient's medical care. Plan discussed with: Patient, Other (RN) My Orders Orders - CHRISTY BEAVER NP Procedure Category Date Status Time Pantoprazole PHA 09/08/24 In Process (Protonix) 10:00 Date of Service: Sep 08, 2024 Billing Provider: CHRISTY BEAVER NP Common Visit Codes: [id number] INP/OBS CARE(HIGH) CHRISTY BEAVER NP Sep 08, 2024 12:48
[2024-09-08] MEDS: IRON SUCROSE COMPLEX 110 ML IV SCH (14:42)
[2024-09-08] MEDS: EPOETIN ALFA-EPBX 10,000 UNIT/1ML VIAL SC SCH (14:43)
[2024-09-09] VITALS (7 sets, daily range): BP systolic 96–124; BP diastolic 53–70; PULSE 74–103; RESP 16–20; TEMP 97.7–98.9; O2SAT 96–99
[2024-09-09 06:33] LABS: Hematocrit 26.6 % (41.0-53.0); Hemoglobin 9.3 g/dL (13.5-17.5)
[2024-09-09 06:49] LABS: Chloride 105 mmol/L (98-107); Potassium 4.3 mmol/L (3.5-5.1); Sodium 139 mmol/L (136-145)
[2024-09-09 06:50] LABS: Anion Gap 12 (5-15); Carbon Dioxide 22 mmol/L (20-31)
[2024-09-09 06:55] LABS: BUN/Creatinine Ratio 12.5 (10.0-20.0); Glucose 94 mg/dL (74-106)
[2024-09-09 06:56] LABS: Blood Urea Nitrogen 49 mg/dL (9-23)
[2024-09-09 07:02] LABS: % Iron Saturation 91.4 % (20-55)
[2024-09-09] MEDS: ONDANSETRON HCL 4 MG/2 ML VIAL IV ONE (07:20)
--- NOTE | 2024-09-09 11:41 | DVHPN2 ---
Progress Note Date Seen: Sep 09, 2024 Medical Necessity Reason Pt with a Central, PICC or Fol: Yes The following are medically ne: Dixon Catheter Reason for dixon catheter: Bladder Retention/Obstruc, Strict I&O Subjective Patient reports: No new complaints Review of Systems: :Abnormal Other Systems: Patient seen and examined by myself today in follow-up Objective vital signs Vital Sign Date Time Temp Pulse Resp B/P (MAP) Pulse Ox O2 Delivery O2 Flow Rate FiO2 09/09/24 09:04 97.9 77 17 104/60 (75) 96 97.9 09/08/24 20:00 Room Air* 0 21 Total Intake and Output 09/08/24 09/08/24 09/09/24 15:00 23:00 07:00 Intake Total 300 ml 600 ml 360 ml Output Total 1775 ml 50435 ml Balance -1475 ml 600 ml -48711 ml medications Current Medications Medications Dose Ordered Sig/Kandi Route Start Time Stop Time Status Last Admin Dose Admin Tamsulosin HCl 0.4 mg QPM PO 08/27/24 18:00 09/08/24 18:56 0.4 MG Ondansetron HCl 4 mg Q4HP PRN IV 08/26/24 19:30 08/27/24 20:12 4 MG Acetaminophen 650 mg Q6HP PRN PO 08/26/24 19:30 Ferrous Sulfate 325 mg BIDWM PO 08/27/24 18:00 09/09/24 10:06 325 MG Baclofen 5 mg Q12HP PRN PO 08/28/24 14:15 09/01/24 21:53 5 MG Lactated Ringer's 1,000 ml @ 60 mls/hr [id number] IV 09/02/24 13:45 09/08/24 19:55 60 MLS/HR Pantoprazole Sodium 40 mg DAILY IV 09/08/24 10:00 09/09/24 10:06 40 MG Iron Sucrose 110 ml @ 110 mls/hr DAILY@1200 IV 09/08/24 12:00 09/12/24 12:59 09/08/24 14:42 110 MLS/HR Epoetin Rashad-epbx 10,000 unit 2XW SC 09/08/24 12:00 09/08/24 14:43 10,000 UNIT Examination: LUNGS:Normal, CVS:Normal, MSK:Normal laboratory and microbiology Laboratory Tests 09/09/24 06:00 09/08/24 05:27 Test 09/09/24 06:00 Range/Units Serum Glucose 94 74-106 mg/dL Microbiology Date/Time Source Procedure Growth Status 08/30/24 18:30 Urine - [place] Urine Culture - Final Complete Problem List/Assessment/Plan Problem List/Assessment/Plan Acute kidney injury superimposed Chronic Kidney Disease stage IV secondary bladder outlet obstruction Anemia of chronic kidney disease Enlarged prostate Status post cystoscopy 09/03 High PSA Recommendations Kidney function slightly improving Increased urine output Dixon catheter Strict I&Os Renal diet IV Venofer Epogen [id number] subQ twice weekly We will continue to follow up Plan discussed with: Patient Dietary Evaluation Review Recommendations by RD: Protein Supplementation Comments: 1) Initiate Nepro bid 2) Encourage optimal PO intake 3) Follow-up with urology, nephrology, and oncology 4) Continue to monitor I&O, labs, and skin integrity Expected Outcomes/Goals: 1) appetite and labs to improve 2) f/u in 3-5 days GAMALIEL JENNINGS MD Sep 09, 2024 11:41
--- NOTE | 2024-09-09 16:20 | DVHPN2 ---
Subjective Patient denies any symptoms at this time Reviewed: Care Plan, H&P, Labs, Medications Changes from previous H/P or p: No Changes General: Per HPI Objective Vitals Vital Signs Date Time Temp Pulse Resp B/P (MAP) Pulse Ox O2 Delivery O2 Flow Rate FiO2 09/09/24 13:00 98.1 78 18 104/62 (76) 99 98.1 09/09/24 08:00 Room Air* 0 21 Intake/Output Intake and Output 09/09/24 07:00 Intake Total 1260 ml Output Total 29971 ml Balance -97621 ml Intake Oral 960 ml IV Total 300 ml Output Urine Total 1775 ml Drainage Total 9350 ml Other 5475 ml General Appearance: Alert, Oriented X3, Cooperative HEENT: Atraumatic, PERRLA Lungs: Clear to auscultation, Normal air movement Cardiovascular: Normal S1, Normal S2 Genitourinary: No Apparent Abnormalities (Garcia catheter), Hematuria Musculoskeletal: Normal sensory function, Normal motor function Neuro: Strength at 5/5 X4 ext, Cranial nerves 3-12 NL Skin: Dry, Intact Psych/Mental Status: Mental status NL, Mood NL Medications Current Medications Medications Dose Ordered Sig/Kandi Route Start Time Stop Time Status Last Admin Dose Admin Tamsulosin HCl 0.4 mg QPM PO 08/27/24 18:00 09/08/24 18:56 0.4 MG Ondansetron HCl 4 mg Q4HP PRN IV 08/26/24 19:30 08/27/24 20:12 4 MG Acetaminophen 650 mg Q6HP PRN PO 08/26/24 19:30 Ferrous Sulfate 325 mg BIDWM PO 08/27/24 18:00 09/09/24 10:06 325 MG Baclofen 5 mg Q12HP PRN PO 08/28/24 14:15 09/01/24 21:53 5 MG Lactated Ringer's 1,000 ml @ 60 mls/hr [id number] IV 09/02/24 13:45 09/09/24 12:31 60 MLS/HR Pantoprazole Sodium 40 mg DAILY IV 09/08/24 10:00 09/09/24 10:06 40 MG Iron Sucrose 110 ml @ 110 mls/hr DAILY@1200 IV 09/08/24 12:00 09/12/24 12:59 09/09/24 12:46 110 MLS/HR Epoetin Rashad-epbx 10,000 unit 2XW SC 09/08/24 12:00 09/08/24 14:43 10,000 UNIT Laboratory Results Laboratory Tests 09/08/24 05:27 09/09/24 06:00 Chemistry Test 09/09/24 06:00 Calcium Level 9.0 mg/dL (8.7-10.4) Urinalysis Test 08/26/24 14:55 Urine Color Light-yellow (Yellow) Urine Clarity Clear (Clear) Urine pH 5.5 (5.0-9.0) Urine Specific [place] 1.009 (1.001-1.035) Urine Protein Negative (Negative) Urine Ketones Negative (Negative) Urine Blood Negative /uL (Negative) Urine Nitrite Negative (Negative) Urine Bilirubin Negative (Negative) Urine Urobilinogen Normal mg/dL (Negative) Urine Leukocyte Esterase Negative /uL (Negative) Urine RBC None seen /hpf (0 - 3) Urine Microscopic WBC 2 /HPF (0-3) Urine Squamous Epithelial Cells None seen /hpf (<5) Urine Bacteria None seen /hpf (None Seen) Urine Glucose Normal mg/dL (Normal) Microbiology Microbiology Date/Time Source Procedure Growth Status 08/30/24 18:30 Urine - [place] Urine Culture - Final Complete Labs and/or images reviewed: Labs reviewed by me, Image(s) reviewed by me Assessment/Plan Assessment/Plan Impression: -acute kidney injury secondary to obstructive uropathy -obstructive uropathy secondary to prostatomegaly -elevated PSA, rule out prostate CA -normocytic anemia Plan: Events: No events overnight. The patient was CBI. Some hematuria noted from the Garcia as well as right nephrostomy tube. Labs benign. Urology consultation: With the recommendations appreciated -nephrology consultation: Recommendations reviewed. -pain management -PUD/DVT prophylaxis -repeat BMP in a.m.. -discharge planning per Urology Total time spent with patient discussing and formulating plan of care: 35 minutes. This medical document was created using an electronic medical record system with [employer] system. Although this document has been carefully reviewed, there may still be some phonetic and typographical errors. These areas are purely typographical due to imperfections of the software programs, and do not reflect any compromise in the patient's medical care. Plan discussed with: Patient, Other (RN) Date of Service: Sep 09, 2024 Billing Provider: CHRISTY BEAVER NP Common Visit Codes: [id number] INP/OBS CARE(HIGH) CHRISTY BEAVER NP Sep 09, 2024 16:20
[2024-09-10] VITALS (8 sets, daily range): BP systolic 97–117; BP diastolic 44–70; PULSE 80–99; RESP 17–20; TEMP 97.3–98.2; O2SAT 96–99
--- NOTE | 2024-09-10 10:19 | DVHPN2 ---
Subjective Patient denies any symptoms at this time Reviewed: Care Plan, H&P, Labs, Medications Changes from previous H/P or p: No Changes General: Per HPI Objective Vitals Vital Signs Date Time Temp Pulse Resp B/P (MAP) Pulse Ox O2 Delivery O2 Flow Rate FiO2 09/10/24 05:00 98.2 80 20 110/57 (74) 97 98.2 09/09/24 20:00 Room Air* 0 21 Intake/Output Intake and Output 09/10/24 07:00 Intake Total 1600 ml Output Total 23053 ml Balance -52213 ml Intake Oral 770 ml IV Total 830 ml Output Urine Total 94913 ml Drainage Total 07899 ml General Appearance: Alert, Oriented X3, Cooperative HEENT: Atraumatic, PERRLA Lungs: Clear to auscultation, Normal air movement Cardiovascular: Normal S1, Normal S2 Genitourinary: No Apparent Abnormalities (Garcia catheter), Hematuria Musculoskeletal: Normal sensory function, Normal motor function Neuro: Strength at 5/5 X4 ext, Cranial nerves 3-12 NL Skin: Dry, Intact Psych/Mental Status: Mental status NL, Mood NL Medications Current Medications Medications Dose Ordered Sig/Kandi Route Start Time Stop Time Status Last Admin Dose Admin Tamsulosin HCl 0.4 mg QPM PO 08/27/24 18:00 09/09/24 18:31 0.4 MG Ondansetron HCl 4 mg Q4HP PRN IV 08/26/24 19:30 08/27/24 20:12 4 MG Acetaminophen 650 mg Q6HP PRN PO 08/26/24 19:30 Ferrous Sulfate 325 mg BIDWM PO 08/27/24 18:00 09/10/24 09:50 325 MG Baclofen 5 mg Q12HP PRN PO 08/28/24 14:15 09/01/24 21:53 5 MG Lactated Ringer's 1,000 ml @ 60 mls/hr [id number] IV 09/02/24 13:45 09/10/24 05:56 60 MLS/HR Pantoprazole Sodium 40 mg DAILY IV 09/08/24 10:00 09/10/24 09:50 40 MG Iron Sucrose 110 ml @ 110 mls/hr DAILY@1200 IV 09/08/24 12:00 09/12/24 12:59 09/09/24 12:46 110 MLS/HR Epoetin Rashad-epbx 10,000 unit 2XW SC 09/08/24 12:00 09/08/24 14:43 10,000 UNIT Laboratory Results Laboratory Tests 09/08/24 05:27 09/09/24 06:00 Urinalysis Test 08/26/24 14:55 Urine Color Light-yellow (Yellow) Urine Clarity Clear (Clear) Urine pH 5.5 (5.0-9.0) Urine Specific [place] 1.009 (1.001-1.035) Urine Protein Negative (Negative) Urine Ketones Negative (Negative) Urine Blood Negative /uL (Negative) Urine Nitrite Negative (Negative) Urine Bilirubin Negative (Negative) Urine Urobilinogen Normal mg/dL (Negative) Urine Leukocyte Esterase Negative /uL (Negative) Urine RBC None seen /hpf (0 - 3) Urine Microscopic WBC 2 /HPF (0-3) Urine Squamous Epithelial Cells None seen /hpf (<5) Urine Bacteria None seen /hpf (None Seen) Urine Glucose Normal mg/dL (Normal) Microbiology Microbiology Date/Time Source Procedure Growth Status 08/30/24 18:30 Urine - [place] Urine Culture - Final Complete Labs and/or images reviewed: Labs reviewed by me, Image(s) reviewed by me Assessment/Plan Assessment/Plan Impression: -acute kidney injury secondary to obstructive uropathy -obstructive uropathy secondary to prostatomegaly -elevated PSA, rule out prostate CA -normocytic anemia Plan: Events: No events overnight. Nephrostomy tubes capped. CBI with minimal hematuria noted. Urology consultation: Further recommendations appreciated -nephrology consultation: Recommendations reviewed. -pain management -PUD/DVT prophylaxis -repeat BMP in a.m.. -discharge planning per Urology Total time spent with patient discussing and formulating plan of care: 35 minutes. This medical document was created using an electronic medical record system with [employer] dictation system. Although this document has been carefully reviewed, there may still be some phonetic and typographical errors. These areas are purely typographical due to imperfections of the software programs, and do not reflect any compromise in the patient's medical care. Plan discussed with: Patient, Other (RN) Date of Service: Sep 10, 2024 Billing Provider: CHRISTY BEAVER NP Common Visit Codes: [id number] INP/OBS CARE(HIGH) CHRISTY BEAVER NP Sep 10, 2024 10:19
--- NOTE | 2024-09-10 10:59 | DVHPN2 ---
Progress Note Date Seen: Sep 10, 2024 Medical Necessity Reason Pt with a Central, PICC or Fol: Yes The following are medically ne: Dixon Catheter Reason for dixon catheter: Bladder Retention/Obstruc, Strict I&O Subjective Patient reports: No new complaints Other Systems: Patient seen and examined by myself today in follow-up Objective vital signs Vital Sign Date Time Temp Pulse Resp B/P (MAP) Pulse Ox O2 Delivery O2 Flow Rate FiO2 09/10/24 05:00 98.2 80 20 110/57 (74) 97 98.2 09/09/24 20:00 Room Air* 0 21 Total Intake and Output 09/09/24 09/09/24 09/10/24 15:00 23:00 07:00 Intake Total 500 ml 580 ml 520 ml Output Total 30066 ml 7705 ml 9450 ml Balance -91506 ml -7125 ml -8930 ml medications Current Medications Medications Dose Ordered Sig/Kandi Route Start Time Stop Time Status Last Admin Dose Admin Tamsulosin HCl 0.4 mg QPM PO 08/27/24 18:00 09/09/24 18:31 0.4 MG Ondansetron HCl 4 mg Q4HP PRN IV 08/26/24 19:30 08/27/24 20:12 4 MG Acetaminophen 650 mg Q6HP PRN PO 08/26/24 19:30 Ferrous Sulfate 325 mg BIDWM PO 08/27/24 18:00 09/10/24 09:50 325 MG Baclofen 5 mg Q12HP PRN PO 08/28/24 14:15 09/01/24 21:53 5 MG Lactated Ringer's 1,000 ml @ 60 mls/hr [id number] IV 09/02/24 13:45 09/10/24 05:56 60 MLS/HR Pantoprazole Sodium 40 mg DAILY IV 09/08/24 10:00 09/10/24 09:50 40 MG Iron Sucrose 110 ml @ 110 mls/hr DAILY@1200 IV 09/08/24 12:00 09/12/24 12:59 09/09/24 12:46 110 MLS/HR Epoetin Rashad-epbx 10,000 unit 2XW SC 09/08/24 12:00 09/08/24 14:43 10,000 UNIT Examination: LUNGS:Normal, CVS:Normal, MSK:Normal laboratory and microbiology Laboratory Tests 09/09/24 06:00 09/08/24 05:27 Test 09/09/24 06:00 Range/Units Serum Glucose 94 74-106 mg/dL Microbiology Date/Time Source Procedure Growth Status 08/30/24 18:30 Urine - [place] Urine Culture - Final Complete Problem List/Assessment/Plan Problem List/Assessment/Plan Acute kidney injury superimposed Chronic Kidney Disease stage IV secondary bladder outlet obstruction Anemia of chronic kidney disease Enlarged prostate Status post cystoscopy 09/03 High PSA Recommendations Kidney function slightly improving Increased urine output Dixon catheter Strict I&Os Renal diet IV Venofer Epogen 35376 subQ twice weekly We will continue to follow up Plan discussed with: Patient Dietary Evaluation Review Recommendations by RD: Protein Supplementation Comments: 1) Initiate Nepro bid 2) Encourage optimal PO intake 3) Follow-up with urology, nephrology, and oncology 4) Continue to monitor I&O, labs, and skin integrity Expected Outcomes/Goals: 1) appetite and labs to improve 2) f/u in 3-5 days GAMALIEL JENNINGS MD Sep 10, 2024 10:59
[2024-09-11 00:45] VITALS: BP 107/62; PULSE 92; RESP 20; TEMP 97.5; O2SAT 98
[2024-09-11 04:36] VITALS: BP 119/76; PULSE 100; RESP 19; TEMP 98.5; O2SAT 98
[2024-09-11 06:43] LABS: Basophils # (auto) 0.1 10 ^3/uL (0-0.2); Basophils % (auto) 0.6 % (0.0-2.0); Eosinophils # (auto) 0.3 10 ^3/uL (0-0.8); Eosinophils % (auto) 2.5 % (0.0-7.0); Hematocrit 26.9 % (41.0-53.0); Hemoglobin 9.2 g/dL (13.5-17.5); Lymphocytes # (auto) 0.9 10 ^3/uL (0.4-5.4); Lymphocytes % (auto) 7.2 % (10.0-50.0); Mean Corpuscular Hemoglobin 32.6 pg (28.0-32.0); Mean Corpuscular Hgb Conc. 34.2 g/dL (32.0-36.0); Mean Corpuscular Volume 95.4 fL (80.0-100.0); Monocytes # (auto) 1.4 10 ^3/uL (0-1.3); Monocytes % (auto) 11.1 % (0.0-12.0); Neutrophils # (auto) 9.8 10 ^3/uL (1.6-8.6); Neutrophils % (auto) 78.6 % (37.0-80.0); Platelet Count (auto) 358 10^3/uL (140-450); Red Blood Cells 2.82 10^6/uL (4.5-5.90); Red Cell Distribution Width 13.5 % (11.8-14.3); White Blood Cell 12.5 10^3/uL (4.4-10.8)
[2024-09-11 06:45] LABS: Anion Gap 10 (5-15); Carbon Dioxide 23 mmol/L (20-31); Chloride 106 mmol/L (98-107); Potassium 4.4 mmol/L (3.5-5.1); Sodium 139 mmol/L (136-145)
[2024-09-11 06:51] LABS: BUN/Creatinine Ratio 9.3 (10.0-20.0); Blood Urea Nitrogen 40 mg/dL (9-23); Calcium 8.5 mg/dL (8.7-10.4); Glucose 99 mg/dL (74-106)
[2024-09-11 08:00] VITALS: RESP 17
[2024-09-11 08:36] VITALS: BP 106/58; PULSE 100; RESP 18; TEMP 98.6; O2SAT 99
--- NOTE | 2024-09-11 10:41 | DVHPN2 ---
Reviewed: Care Plan, H&P, Labs, Medications General: Per HPI Objective Vitals Vital Signs Date Time Temp Pulse Resp B/P (MAP) Pulse Ox O2 Delivery O2 Flow Rate FiO2 09/11/24 08:36 98.6 100 18 106/58 (74) 99 98.6 09/11/24 08:00 Room Air* 0 21 Intake/Output Intake and Output 09/11/24 07:00 Intake Total 1991 ml Output Total 3600 ml Balance -1609 ml Intake Oral 1191 ml IV Total 800 ml Output Urine Total 3600 ml # Voids 3 # Bowel Movements 1 General Appearance: Alert, Oriented X3, Cooperative HEENT: Atraumatic, PERRLA Lungs: Clear to auscultation, Normal air movement Cardiovascular: Normal S1, Normal S2 Genitourinary: No Apparent Abnormalities (Garcia catheter), Hematuria Musculoskeletal: Normal sensory function, Normal motor function Neuro: Strength at 5/5 X4 ext, Cranial nerves 3-12 NL Skin: Dry, Intact Psych/Mental Status: Mental status NL, Mood NL Medications Current Medications Medications Dose Ordered Sig/Kandi Route Start Time Stop Time Status Last Admin Dose Admin Tamsulosin HCl 0.4 mg QPM PO 08/27/24 18:00 09/10/24 17:28 0.4 MG Ondansetron HCl 4 mg Q4HP PRN IV 08/26/24 19:30 08/27/24 20:12 4 MG Acetaminophen 650 mg Q6HP PRN PO 08/26/24 19:30 Ferrous Sulfate 325 mg BIDWM PO 08/27/24 18:00 09/10/24 09:50 325 MG Baclofen 5 mg Q12HP PRN PO 08/28/24 14:15 09/01/24 21:53 5 MG Lactated Ringer's 1,000 ml @ 60 mls/hr [id number] IV 09/02/24 13:45 09/10/24 21:13 60 MLS/HR Pantoprazole Sodium 40 mg DAILY IV 09/08/24 10:00 09/11/24 09:51 40 MG Iron Sucrose 110 ml @ 110 mls/hr DAILY@1200 IV 09/08/24 12:00 09/12/24 12:59 09/10/24 12:43 110 MLS/HR Epoetin Rashad-epbx 10,000 unit 2XW SC 09/08/24 12:00 09/08/24 14:43 10,000 UNIT Laboratory Results Laboratory Tests 09/11/24 05:45 Chemistry Test 09/11/24 05:45 Calcium Level 8.5 mg/dL (8.7-10.4) L Urinalysis Test 08/26/24 14:55 Urine Color Light-yellow (Yellow) Urine Clarity Clear (Clear) Urine pH 5.5 (5.0-9.0) Urine Specific [place] 1.009 (1.001-1.035) Urine Protein Negative (Negative) Urine Ketones Negative (Negative) Urine Blood Negative /uL (Negative) Urine Nitrite Negative (Negative) Urine Bilirubin Negative (Negative) Urine Urobilinogen Normal mg/dL (Negative) Urine Leukocyte Esterase Negative /uL (Negative) Urine RBC None seen /hpf (0 - 3) Urine Microscopic WBC 2 /HPF (0-3) Urine Squamous Epithelial Cells None seen /hpf (<5) Urine Bacteria None seen /hpf (None Seen) Urine Glucose Normal mg/dL (Normal) Microbiology Microbiology Date/Time Source Procedure Growth Status 08/30/24 18:30 Urine - [place] Urine Culture - Final Complete NATALIE ARANDA MD Sep 11, 2024 10:41
--- NOTE | 2024-09-11 11:41 | DVHDS2 ---
Discharge Summary Date of Admission Aug 26, 2024 at 19:27 Date of Discharge: Sep 11, 2024 Admitting Diagnosis -acute kidney injury secondary to obstructive uropathy -obstructive uropathy secondary to prostatomegaly -elevated PSA, rule out prostate CA -normocytic anemia Labs/Diagnostic Data: Laboratory Results Test 09/11/24 05:45 09/09/24 06:00 09/08/24 05:27 09/03/24 05:39 White Blood Count 12.5 10^3/uL (4.4-10.8) Red Blood Count 2.82 10^6/uL (4.5-5.90) Hemoglobin 9.2 g/dL (13.5-17.5) Hematocrit 26.9 % (41.0-53.0) Mean Corpuscular Volume 95.4 fL (80.0-100.0) Mean Corpuscular Hemoglobin 32.6 pg (28.0-32.0) Mean Corpuscular Hemoglobin Concent 34.2 g/dL (32.0-36.0) Red Cell Distribution Width 13.5 % (11.8-14.3) Platelet Count 358 10^3/uL (140-450) Mean Platelet Volume 7.8 fL (6.9-10.8) Neutrophils (%) (Auto) 78.6 % (37.0-80.0) Lymphocytes (%) (Auto) 7.2 % (10.0-50.0) Monocytes (%) (Auto) 11.1 % (0.0-12.0) Eosinophils (%) (Auto) 2.5 % (0.0-7.0) Basophils (%) (Auto) 0.6 % (0.0-2.0) Neutrophils # (Auto) 9.8 10 ^3/uL (1.6-8.6) Lymphocytes # (Auto) 0.9 10 ^3/uL (0.4-5.4) Monocytes # (Auto) 1.4 10 ^3/uL (0-1.3) Eosinophils # (Auto) 0.3 10 ^3/uL (0-0.8) Basophils # (Auto) 0.1 10 ^3/uL (0-0.2) Nucleated Red Blood Cells 0.0 % Sodium Level 139 mmol/L (136-145) Potassium Level 4.4 mmol/L (3.5-5.1) Chloride Level 106 mmol/L (98-107) Carbon Dioxide Level 23 mmol/L (20-31) Anion Gap 10 (5-15) Blood Urea Nitrogen 40 mg/dL (9-23) Creatinine 4.30 mg/dL (0.700-1.30) Glomerular Filtration Rate Calc 15 mL/min (>90) BUN/Creatinine Ratio 9.3 (10.0-20.0) Serum Glucose 99 mg/dL (74-106) Calcium Level 8.5 mg/dL (8.7-10.4) Iron Level 181 ug/dL (65-175) Total Iron Binding Capacity 198 ug/dL (250-425) Percent Iron Saturation 91.4 % (20-55) Ferritin 359.6 ng/mL (22-322) Prothrombin Time 10.3 sec (9.3-11.8) Prothrombin Time INR 0.97 (0.9-1.15) Activated Partial Thromboplast Time 25.9 SEC (24.5-34.5) Total Bilirubin 0.3 mg/dL (0.2-1.0) Aspartate Amino Transferase (AST) 11 U/L (<34) Alanine Aminotransferase (ALT) 11 U/L (7-40) Alkaline Phosphatase 89 U/L (46-116) Total Protein 7.1 g/dL (5.7-8.2) Albumin 4.2 g/dL (3.2-4.8) Test 09/01/24 15:31 08/27/24 05:45 08/26/24 14:58 08/26/24 14:55 Free Prostate Specific Antigen 3.61 ng/mL (N/A) Percent Free Prostate Specific Ag 26.4 % (.) Prostate Specific Antigen Total 13.7 ng/mL (0.0-4.0) Phosphorus Level 4.8 mg/dL (2.4-5.1) Vitamin D 25-Hydroxy 38.4 ng/mL (30.0-100) Lactic Acid Level 0.9 mmol/L (0.4-2.0) Urine Color Light-yellow (Yellow) Urine Clarity Clear (Clear) Urine pH 5.5 (5.0-9.0) Urine Specific [place] 1.009 (1.001-1.035) Urine Protein Negative (Negative) Urine Ketones Negative (Negative) Urine Blood Negative /uL (Negative) Urine Nitrite Negative (Negative) Urine Bilirubin Negative (Negative) Urine Urobilinogen Normal mg/dL (Negative) Urine Leukocyte Esterase Negative /uL (Negative) Urine RBC None seen /hpf (0 - 3) Urine Microscopic WBC 2 /HPF (0-3) Urine Squamous Epithelial Cells None seen /hpf (<5) Urine Bacteria None seen /hpf (None Seen) Urine Glucose Normal mg/dL (Normal) Other Laboratory Tests 09/11/24 05:45 Brief Hx & Hospital Course: . This is a 64 years old male came to emergency department because of recent blood work. Per patient his primary care physician advised him to come to emergency department after the blood draw showed acute kidney injury. Patient also reports urine frequency and difficulty urinating. His initial BUN/creatinine in the hospital showed 61/7.95. The patient was admitted. Nephrology was consulted. He also had elevation of PSA which is 13.7. The patient imaging starting showed a large BPH. Subsequently he had a cystoscopy and TURP procedure done. After procedure patient is able to urinate without difficulty. The patient also improve in his kidney function. His BUN/creatinine back to 40/4.3. His Garcia was removed and he able to urinate himself. Today the patient ambulate, denied any weakness numbness. No hematuria, polyuria or dysuria. Patient will be discharged home. Advised the patient to follow up with , urologist as outpatient per schedule. Follow up with primary care physician 1-2 weeks. Follow up with Nephrology per schedule. Activity as tolerated. Diet renal diet. Physical exam: HEENT: Normocephalic atraumatic pupils equal react to light and accommodation. Extraocular muscles intact, conjunctiva pink, oropharynx moist, no thrush, no exudate. Lymphatic: No lymphadenopathy Cardiovascular exam: S1, S2 was heard. No murmurs, rubs, gallops Lung: Clear on auscultation bilaterally, no wheeze, rale, rhonchi. GI: Abdominal soft, nondistended, nontenderness, positive bowel sounds. Extremity: No crepitus, cyanosis, edema. Pedal pulses present bilateral. Full range of motion. Skin: Normal turgor, no rash. Psych: Alert, oriented x3. Neurology: No focal deficits, cranial nerve II to XII grossly intact. This medical document was created using an electronic medical record system with [employer] direct computerized dictation system. Although this document has been carefully reviewed, there may still be some phonetic and typographical errors. These areas are purely typographical due to imperfections of the software programs, and do not reflect any compromise in the patient's medical care. Condition at Discharge: Stable Final Diagnosis/Problems List -acute kidney injury secondary to obstructive uropathy -obstructive uropathy secondary to prostatomegaly -elevated PSA, rule out prostate CA -normocytic anemia -bladder outlet obstruction. Discharge Disposition: Home Discharge Statement: "Patient was advised to return to the ER or call 911 if any headaches, dizziness, shortness of breath, chest pain, abdominal pain, bleeding, fevers, or worsening of medical condition. Patient was counseled about treatment plan, medications, possible side effects, patientverbalized understanding. All questions were answered to the best of my ability. This discharge took greater then 30 minutes in planning, reviewing documentation, counseling the patient, and discussing with other team members." ASSESSMENT ASSESSMENT Assessment Date of Service: Sep 11, 2024 Billing Provider: NATALIE ARANDA MD Common Visit Codes: 78003-CDX/OBS DISCH DAY >30min NATALIE ARANDA MD Sep 11, 2024 11:41
[2024-09-11] MEDS ORDERED: TAMS-35 PO ×2 (11:42)
[2024-09-11] MEDS ORDERED: BACL10TA PO ×2 (11:42)
[2024-09-11] MEDS ORDERED: FER325T PO ×2 (11:42)
[2024-09-11 12:34] VITALS: BP 102/63; PULSE 83; RESP 17; TEMP 98.9; O2SAT 99
--- NOTE | 2024-09-11 18:22 | DVHPN2 ---
Progress Note Date Seen: Sep 11, 2024 Medical Necessity Reason Pt with a Central, PICC or Fol: Yes The following are medically ne: Dixon Catheter Reason for dixon catheter: Bladder Retention/Obstruc, Strict I&O Subjective Patient reports: No new complaints Review of Systems: Deferred Objective vital signs Vital Sign Date Time Temp Pulse Resp B/P (MAP) Pulse Ox O2 Delivery O2 Flow Rate FiO2 09/11/24 12:34 98.9 83 17 102/63 (76) 99 98.9 09/11/24 08:00 Room Air* 0 21 Total Intake and Output 09/10/24 09/10/24 09/11/24 15:00 23:00 07:00 Intake Total 1591 ml 400 ml Output Total 3600 ml Balance -2009 ml 400 ml laboratory and microbiology Laboratory Tests 09/11/24 05:45 Test 09/11/24 05:45 Range/Units Serum Glucose 99 74-106 mg/dL Microbiology Date/Time Source Procedure Growth Status 08/30/24 18:30 Urine - Dixon Port Urine Culture - Final Complete Problem List/Assessment/Plan Problem List/Assessment/Plan Acute kidney injury superimposed Chronic Kidney Disease stage IV secondary bladder outlet obstruction Anemia of chronic kidney disease Enlarged prostate Status post cystoscopy 09/03 High PSA Recommendations Kidney function slightly improving Increased urine output Dixon catheter Strict I&Os Renal diet Outpatient Acute kidney injury follow up in our office Plan discussed with: Patient, Spouse Dietary Evaluation Review Recommendations by RD: Protein Supplementation Comments: 1) Initiate Nepro bid 2) Encourage optimal PO intake 3) Follow-up with urology, nephrology, and oncology 4) Continue to monitor I&O, labs, and skin integrity Expected Outcomes/Goals: 1) appetite and labs to improve 2) f/u in 3-5 days JAZMYN IVEY MD Sep 11, 2024 18:22
== END 2024-09-11 15:00 | disposition home or self-care (01) | DRG 482 ==
LOC: ER 13:54 → OVERFLOW 19:27 → EAST 19:31
PROVIDERS: ADMIT Internal Medicine; ATTEND Internal Medicine
PROC: 0T9430Z Drainage of Left Kidney Pelvis with Drainage Device, Percutaneous Approach (ICD-10-PCS; 2024-08-31)
PROC: 0T9330Z Drainage of Right Kidney Pelvis with Drainage Device, Percutaneous Approach (ICD-10-PCS; 2024-08-31)
PROC: 0TJB8ZZ Inspection of Bladder, Via Natural or Artificial Opening Endoscopic (ICD-10-PCS; principal; 2024-09-03)
PROC: BT13ZZZ Fluoroscopy of Bilateral Kidneys (ICD-10-PCS; 2024-09-04)
PROC: 0T9130Z Drainage of Left Kidney with Drainage Device, Percutaneous Approach (ICD-10-PCS; 2024-09-04)
PROC: 0T9030Z Drainage of Right Kidney with Drainage Device, Percutaneous Approach (ICD-10-PCS; 2024-09-04)
PROC: 0VB08ZZ Excision of Prostate, Via Natural or Artificial Opening Endoscopic (ICD-10-PCS; 2024-09-08)
DX: N40.1 Benign prostatic hyperplasia with lower urinary tract symptoms (principal); N17.9 Acute kidney failure, unspecified; N13.30 Unspecified hydronephrosis; D63.1 Anemia in chronic kidney disease; N13.8 Other obstructive and reflux uropathy; N32.0 Bladder-neck obstruction; R79.89 Other specified abnormal findings of blood chemistry; I25.10 Atherosclerotic heart disease of native coronary artery without angina pectoris; Z88.5 Allergy status to narcotic agent; Z93.6 Other artificial openings of urinary tract status; N18.4 Chronic kidney disease, stage 4 (severe); Z79.899 Other long term (current) drug therapy
CPT/HCPCS: 36415; 50431; 50435; 52000; 71045; 72195; 74018; 74176; 74425; 76775; 76942; 78306; 80048; 80053; 81001; 82306; 82728; 83540; 83550; 83605; 84100; 84154; 85014; 85018; 85025; 85610; 85730; 86850; 86900; 86901; 87086; 93005; 96361; 96374; 99152; 99291; G0378; J1100; J1756; J2250; J2470; Q9967

== ENCOUNTER → 2024-09-16 | Outpatient (CLI) | payer MEDICAID ==
[~2024-09-16] MED LIST: BACL10TA PO; FAMO-12 PO; FER325T PO; TAMS-35 PO
== END | disposition home or self-care (01) ==
LOC: LAB 15:34
PROVIDERS: ATTEND Internal Medicine
DX: Z12.11 Encounter for screening for malignant neoplasm of colon (principal)
CPT/HCPCS: 82274

== ENCOUNTER 2024-09-30 12:56 | Outpatient (CLI) | payer MEDICAID ==
[2024-09-30 13:22] LABS: Hematocrit 27.3 % (41.0-53.0); Hemoglobin 9.4 g/dL (13.5-17.5); Mean Corpuscular Hemoglobin 33.3 pg (28.0-32.0); Mean Corpuscular Volume 96.3 fL (80.0-100.0); Nucleated Red Blood Cells % 0.0 %
[2024-09-30 13:30] LABS: Potassium 4.6 mmol/L (3.5-5.1); Sodium 140 mmol/L (136-145)
[2024-09-30 13:31] LABS: Anion Gap 6 (5-15); Calcium 9.1 mg/dL (8.7-10.4); Carbon Dioxide 22 mmol/L (20-31); Chloride 112 mmol/L (98-107)
[2024-09-30 13:36] LABS: BUN/Creatinine Ratio 12.5 (10.0-20.0); Glucose 85 mg/dL (74-106)
[2024-09-30 13:37] LABS: Blood Urea Nitrogen 49 mg/dL (9-23)
[2024-09-30 13:42] LABS: Free T3 2.36 pg/mL (2.3-4.2); Free T4 (Free Thyroxine) 0.92 ng/dL (0.89-1.76)
== END 2024-09-30 17:00 | disposition home or self-care (01) ==
LOC: LAB 12:56
PROVIDERS: ATTEND Internal Medicine
DX: N18.4 Chronic kidney disease, stage 4 (severe) (principal); D64.9 Anemia, unspecified
CPT/HCPCS: 36415; 80048; 84439; 84443; 84480; 84481; 85025

== ENCOUNTER 2024-11-24 06:49 | Outpatient (CLI) | payer MEDICAID ==
[2024-11-24 07:31] LABS: Hematocrit 31.8 % (41.0-53.0); Hemoglobin 11.1 g/dL (13.5-17.5); Mean Corpuscular Hemoglobin 33.8 pg (28.0-32.0); Mean Corpuscular Volume 97.2 fL (80.0-100.0); Nucleated Red Blood Cells % 0.0 %
[2024-11-24 07:47] LABS: Urine Budding Yeast MANY /hpf (None Seen); Urine Protein, UAD 1+ (Negative); Urine WBC Clumps PRESENT /hpf (None Seen)
[2024-11-24 07:50] LABS: Protein, Urine 89.7 mg/dL (1-14)
[2024-11-24 07:56] LABS: Alanine Aminotransferase 11 U/L (7-40); Albumin 4.2 g/dL (3.2-4.8); Anion Gap 9 (5-15); BUN/Creatinine Ratio 10.1 (10.0-20.0); Calcium 9.0 mg/dL (8.7-10.4); Carbon Dioxide 24 mmol/L (20-31); Chloride 105 mmol/L (98-107); Glucose 89 mg/dL (74-106); Magnesium 1.7 mg/dL (1.6-2.6); Potassium 4.6 mmol/L (3.5-5.1); Sodium 138 mmol/L (136-145); Total Protein 7.4 g/dL (5.7-8.2)
[2024-11-24 07:57] LABS: Alkaline Phosphatase 124 U/L (46-116); Bilirubin, Total 0.3 mg/dL (0.2-1.0); Blood Urea Nitrogen 33 mg/dL (9-23); Cholesterol 228 mg/dL (< 200); HDL Cholesterol 35 mg/dL (40-59); Triglycerides 179 mg/dL (< 150)
[2024-11-24 10:40] LABS: Iron 59.0 ug/dL (65-175)
[2024-11-24 10:43] LABS: Total Iron Binding Capacity 256.0 ug/dL (250-425)
== END 2024-11-24 17:00 | disposition home or self-care (01) ==
LOC: LAB 06:49
PROVIDERS: ATTEND Internal Medicine
DX: E11.22 Type 2 diabetes mellitus with diabetic chronic kidney disease (principal); N18.4 Chronic kidney disease, stage 4 (severe); E11.21 Type 2 diabetes mellitus with diabetic nephropathy; D63.1 Anemia in chronic kidney disease; E21.3 Hyperparathyroidism, unspecified; E55.9 Vitamin D deficiency, unspecified; N39.0 Urinary tract infection, site not specified; M10.9 Gout, unspecified; R80.9 Proteinuria, unspecified
CPT/HCPCS: 36415; 80053; 80061; 81001; 82306; 82570; 82728; 83036; 83540; 83550; 83735; 83970; 84100; 84156; 85025

== ENCOUNTER → 2024-12-18 | Outpatient (CLI) | payer MEDICAID ==
[2024-12-18 13:42] LABS: Hematocrit 31.9 % (41.0-53.0); Hemoglobin 11.0 g/dL (13.5-17.5); Mean Corpuscular Hemoglobin 33.5 pg (28.0-32.0); Mean Corpuscular Volume 97.1 fL (80.0-100.0); Nucleated Red Blood Cells % 0.0 %
== END | disposition home or self-care (01) ==
LOC: LAB 13:28
PROVIDERS: ATTEND Internal Medicine
DX: D64.9 Anemia, unspecified (principal)
CPT/HCPCS: 36415; 85025

== ENCOUNTER 2025-03-02 10:12 | Outpatient (CLI) | payer MEDICAID | END 2025-03-02 17:00 | disposition home or self-care (01) | LOC: LAB 10:12 | PROVIDERS: ATTEND Student in an Organized Health Care Education/Training Program | DX: R97.20 Elevated prostate specific antigen [PSA] (principal) | CPT/HCPCS: 84153 ==